=== PATIENT | male | born 1935 | race Caucasian/White ===

== ENCOUNTER 2016-03-31 09:47 | Day surgery (SDC) | payer MEDICARE, BC ==
[~2016-03-31] VITALS: Ht 165.1 cm; Wt 66.4 kg
[2016-03-31 10:26] VITALS: BP 156/100; PULSE 122; RESP 18; TEMP 97.7; O2SAT 98
[2016-03-31] MEDS ORDERED: LOSA50TA PO (10:33)
[2016-03-31] MEDS ORDERED: ALPH200C2 PO (10:33)
[2016-03-31] MEDS ORDERED: ROSU5 PO (10:33)
[2016-03-31] MEDS ORDERED: WARF-18 PO (10:33)
[2016-03-31] MEDS ORDERED: ASPI-110 PO (10:33)
[2016-03-31] MEDS ORDERED: LACTCAP8 PO (10:33)
[2016-03-31] MEDS ORDERED: CENTTAB PO (10:33)
[2016-03-31] MEDS ORDERED: HYDR12.56 PO (10:33)
[2016-03-31] MEDS ORDERED: OMEGCAP PO (10:33)
[2016-03-31 10:37] LABS: AUTOMATED NEUTROPHIL # 3.4 TH/MM3 (1.8-7.7); BASOPHIL % 0.5 % (0.0-2.0); EOSINOPHIL # 0.1 TH/MM3 (0-0.4); HEMATOCRIT 44.3 % (39.0-51.0); HEMO FLAGS DIFF FINAL; LYMPH % 16.4 % (9.0-44.0); LYMPHOCYTE # 0.8 TH/MM3 (1.0-4.8); MEAN CELL VOLUME 79.9 FL (80.0-100.0); MEAN CORPUSCULAR HEMOGLOBIN 26.6 PG (27.0-34.0); MEAN CORPUSCULAR HGB CONC 33.3 % (32.0-36.0); MONO % 11.2 % (0.0-8.0); NEUT % 69.9 % (16.0-70.0); PLATELET COUNT 172 TH/MM3 (150-450); RED BLOOD COUNT 5.54 MIL/MM3 (4.50-5.90); WHITE BLOOD COUNT 4.8 TH/MM3 (4.0-11.0)
[2016-03-31 10:44] LABS: APTT (PATIENT) 33.6 SEC (24.3-30.1); INTERNATIONAL NORMALIZED RATIO 2.1 RATIO; PROTHROMBIN TIME - PATIENT 24.3 SEC (9.8-11.6)
[2016-03-31] MEDS ORDERED: NO Heparin, Lovenox, Coumadin at least 12 hours prior to procedure. XX PRN (10:45)
[2016-03-31] MEDS ORDERED: METOPROLOL TARTRATE 25 MG TAB PO PRN (10:45)
[2016-03-31] MEDS ORDERED: CHLORHEXIDINE GLUCONATE 2 % 1 PACK (2 CLOTHS) TOP SCH (10:45)
[2016-03-31] MEDS ORDERED: NS 1000 ML IV SCH (10:45)
[2016-03-31] MEDS ORDERED: MUPIROCIN 2% OINT 1 APPLIC/GM SYR NASAL SCH (10:45)
[2016-03-31] MEDS ORDERED: INSULIN HUMAN REGULAR 1,000 UNITS/10 ML VIAL SQ PRN (10:45)
[2016-03-31] MEDS ORDERED: VANCOMYCIN 1000 MG/NS 250 ML IV SCH ×2 (10:45)
[2016-03-31] MEDS ORDERED: Hold AM Insulin & AM Hypoglycemic medications in diabetic patients XX PRN (10:45)
[2016-03-31] MEDS ORDERED: ceFAZolin 2 GM PREMIX 50 ML IV SCH (10:45)
[2016-03-31] MEDS ORDERED: LACTATED RINGER'S 1000 ML IV SCH (10:45)
[2016-03-31] MEDS ORDERED: SODIUM CHLORID 0.9% 500 ML IV SCH (10:45)
[2016-03-31] MEDS ORDERED: POVIDONE IODINE 5% (ANTISEPSIS KIT) 4 APPLICATIONS EACH NARE SCH (10:45)
[2016-03-31 10:55] LABS: BICARBONATE 30.3 MEQ/L (21.0-32.0); POTASSIUM 4.2 MEQ/L (3.5-5.1)
[2016-03-31] MEDS ORDERED: LIDOCAINE HCL 2% 50 ML VIAL ONE (12:26)
[2016-03-31] MEDS ORDERED: VANCOMYCIN 500 MG VIAL ONE (12:26)
--- NOTE | 2016-03-31 12:59 | EKG ---
Date Performed: 03/31/2016 Time Performed: 10:34:18 PTAGE: 80 years EKG: BASELINE ARTIFACT PRESENT. Probable Atrial fibrillation Possible anterior infarct - age und etermined Inferior T wave changes are nonspecific Low QRS voltages in limb leads Abnormal ECG COMPARE D TO PRIOR ELECTROCARDIOGRAM, Present electrocardiogram has marked artifact but it appears that atria l fibrillation has replaced Sinus rhythm . PREVIOUS TRACING : 03/31/2016 10.33 DOCTOR: Caleb Hodges Interpretating Date/Time 03/31/2016 12:57:31
[2016-03-31] MEDS ORDERED: SODIUM CHLORIDE 0.9% FLUSH 5 ML FLUSH IVF SCH ×2 (13:00)
[2016-03-31] MEDS ORDERED: SODIUM CHLORIDE 0.9% FLUSH 5 ML FLUSH IVF PRN ×2 (13:00)
[2016-03-31] MEDS ORDERED: PROPOFOL 200 MG/20 ML AMP IV ONE (13:30)
[2016-03-31] MEDS ORDERED: DO NOT ADM ANY ANTICOAGULANT DRUGS XX PRN (15:00)
--- NOTE | 2016-03-31 15:15 | RADRPT ---
EXAM DATE/TIME: 03/31/2016 14:43 [facility] COMPARISON: No previous studies available for comparison. INDICATIONS : Post pacemaker insertion MEDICAL HISTORY : None. SURGICAL HISTORY : Pacemaker. ENCOUNTER: Initial ACUITY: 1 day PAIN SCORE: 2/10 LOCATION: Bilateral chest FINDINGS: Portable AP views of the chest demonstrate a normal-sized cardiac silhouette. There is a single lead left chest wall cardiac pacing device present with single lead tip overlying the right heart. The nya gs are underinflated with atelectasis at the bases. No pneumothorax or pleural effusion is visualized . Bones and soft tissues demonstrate no acute finding. CONCLUSION: 1. Single lead left chest wall pacing device in appropriate position. No pneumothorax is seen. 2. Underinflation with atelectasis at the lung bases. Ahsan Starr MD on March 31, 2016 at 15:13 Board Certified Radiologist. This report was verified electronically.
--- NOTE | 2016-04-05 06:32 | MP ---
cc: CARLOS LEACH M.D. DATE OF SURGERY: 03/31/2016 DATE OF : 1935 PROCEDURE Permanent single chamber pacemaker. PREOPERATIVE DIAGNOSIS Sinus node dysfunction 5-second pauses, atrial fibrillation, tachy-moiz phenomenon. SURGEON Carlos Leach MD. ANESTHESIA: Conscious sedation, Anesthesia Department ESTIMATED BLOOD LOSS None. COMPLICATIONS None. APPROACH: Upper left chest. PROCEDURAL STATEMENTS: The patient is brought to the operating suite where the upper left chest area is prepped and draped in the usual sterile fashion. The skin was anesthetize with 1% Xylocaine and a pacemaker pocket fashioned in the upper left chest area with blunt and sharp dissection, bleeding controlled with electrocautery. Using a single tearaway sheath, and active fixation, [employer]. Christophe Tendril SDX 58 cm long pacemaker lead is positioned in the right ventricle apex, thresholds measured and found to be acceptable. The leads were connected to an Assurity 1240 pacemaker, single chamber, [employer]. Christophe. Deep tissues checked for dryness, closed with 3-0 Vicryl. The skin is closed with 4-0 Monocryl in a running subcuticular fashion. A pressure dressing is applied. The patient returned to his room in stable condition. Carlos Leach MD [facility] /1:27 PM /6:10 AM
== END 2016-03-31 16:34 | disposition home or self-care (01) ==
LOC: HDIC 09:47 → HDOC 09:47
PROVIDERS: ATTEND Internal Medicine Cardiovascular Disease
DX: I49.5 Sick sinus syndrome (principal); I48.2 Chronic atrial fibrillation; I47.2 Ventricular tachycardia; I49.9 Cardiac arrhythmia, unspecified; I10 Essential (primary) hypertension; I65.23 Occlusion and stenosis of bilateral carotid arteries
CPT/HCPCS: 33207; 71010; 80048; 85025; 85610; 85730; 93005; C1786; C1898; J3370

== ENCOUNTER 2017-01-01 07:24 | Inpatient (IN) | payer MEDICARE, BC ==
[2017-01-01] VITALS (10 sets, daily range): BP systolic 115–191; BP diastolic 63–86; PULSE 76–86; RESP 12–25; TEMP 97.8–98.9; O2SAT 94–97
[~2017-01-01] VITALS: Ht 165.1 cm; Wt 69.5 kg
[~2017-01-01 07:24] MED LIST: ALPH200C2 PO; ASPI-110 PO; CENTTAB PO; HYDR12.56 PO; LACTCAP8 PO; LOSA50TA PO; OMEGCAP PO; ROSU5 PO; WARF-18 PO
[2017-01-01] MEDS ORDERED: SODIUM CHLORIDE 0.9% FLUSH 10 ML FLUSH IVF PRN (07:45)
--- NOTE | 2017-01-01 07:51 | PD ---
HPI Chief Complaint: Fall Time Seen by Provider: 07:34 Travel History International Travel<30 days: No Contact w/Intl Traveler<30days: No Traveled to known affect area: No History of Present Illness HPI 81-year-old male presents after he tripped and fell on construction area and landed on his face. He is having pain to his lower face. He states that he is on Coumadin. He states that he had his INR checked yesterday and it was 2.9. Fall is from standing. He denies any other concurrent complaints. Quality pain is sharp. Severity is moderate. PFSH Past Medical History Atrial Fibrillation: Yes Cancer: Yes (prostate) Cardiovascular Problems: Yes (cad, afib, hyperlipidemia) High Cholesterol: Yes Diminished Hearing: Yes Hypertension: Yes Tetanus Vaccination: Unknown Past Surgical History Appendectomy: Yes Cardiac Surgery: Yes (pacer, carotid artery ) Pacemaker: Yes Other Surgery: Yes (left carotid endarterectomy) Social History Alcohol Use: No Tobacco Use: No Substance Use: No Allergies-Medications (Allergen,Severity, Reaction): Coded Allergies: No Known Allergies (Unverified , 01/01/17) Reported Meds & Prescriptions Reported Meds & Active Scripts Active Reported Hydrochlorothiazide 12.5 Mg Tab 12.5 Mg PO DAILY Losartan (Losartan Potassium) 50 Mg Tab 50 Mg PO DAILY Alpha Lipoic Acid 200 Mg Cap 200 Mg PO DAILY Crestor (Rosuvastatin Calcium) 5 Mg Tab 5 Mg PO DAILY Probiotic (Lactobacillus Acidophilus) 1 Cap Cap 1 Cap PO DAILY Aspirin 81 (Aspirin) 81 Mg Tabdr 81 Mg PO DAILY [place]-3 Fish Oil/Vitamin (Fish Oil-Cholecalciferol) 1,000-1,000 Mg Cap 3 Cap PO DAILY Warfarin 2.5 Mg Tab 2.5 Mg PO DAILY Review of Systems Except as stated in HPI: all other systems reviewed are Neg Physical Exam Narrative GENERAL: Well-nourished, well-developed patient. Well-appearing SKIN: Warm and dry. HEAD: Normocephalic and abrasion noted to lower face EYES: No injection or drainage. ENT: No nasal drainage noted. There is a small less than half centimeter simple laceration noted to inner upper lip with small swelling NECK: Supple, trachea midline. CARDIOVASCULAR: Regular rate and rhythm RESPIRATORY: Breath sounds equal bilaterally at apices. No accessory muscle use. GASTROINTESTINAL: Abdomen soft, non-tender, nondistended. EXTREMITIES: No joint pain with range of motion NEUROLOGICAL: Awake and alert. Motor and sensory grossly within normal limits. Normal speech. Data Data Last Documented VS Vital Signs Date Time Temp Pulse Resp B/P (MAP) Pulse Ox O2 Delivery O2 Flow Rate FiO2 01/01/17 07:42 (121) 01/01/17 07:38 18 17 97 01/01/17 07:26 98.0 Orders Orders Basic Metabolic Panel (Bmp) (01/01/17 07:40) Complete Blood Count With Diff (01/01/17 07:40) Prothrombin Time / Inr (Pt) (01/01/17 07:40) Act Partial Throm Time (Ptt) (01/01/17 07:40) Type And Screen (01/01/17 07:40) Ct Brain W/O Iv Contrast(Rout) (01/01/17 07:40) Ct Facial Bones W/O Iv Cont (01/01/17 07:40) Iv Access Insert/Monitor (01/01/17 07:40) Ecg Monitoring (01/01/17 07:40) Oximetry (01/01/17 07:40) Sodium Chloride 0.9% Flush (Ns Flush) (01/01/17 07:45) ^ Lab Follow Up (01/01/17 08:18) Phytonadione Inj (Vitamin K Inj) (01/01/17 09:00) Prothrombin Complex Conc Inj (Kcentra In (01/01/17 09:00) Admit To Inpatient (01/01/17 08:20) Elevate Head Of Bed (01/01/17 08:20) Intake + Output MINOO.Q8H (01/01/17 08:20) Diet Clear Liquid (01/01/17 Breakfast) Complete Blood Count With Diff (01/02/17 06:00) Basic Metabolic Panel (Bmp) (01/02/17 06:00) Prothrombin Time / Inr (Pt) (01/02/17 06:00) Act Partial Throm Time (Ptt) (01/02/17 06:00) Resp Incentive Spirometry (01/01/17 08:20) Consult Pt Eval & Treat (01/01/17 08:20) Consult Hospitalist (01/01/17 08:20) Ct Brain W/O Iv Contrast(Rout) (01/02/17 06:00) Activity Oob With Assistance PRN (01/01/17 08:20) Scd Bilateral/Knee High MINOO.QSHIFT (01/01/17 08:20) Neuro Checks RT.Q1H (01/01/17 08:20) Vital Signs (Adult) MINOO.Q1H (01/01/17 08:20) Inpatient Certification (01/01/17 ) D5-Ns + Kcl 20 Meq Inj (D5-Ns + Kcl 20 M (01/01/17 09:00) Pantoprazole (Protonix) (01/01/17 09:00) Ondansetron Inj (Zofran Inj) (01/01/17 08:30) Docusate Sodium (Colace) (01/01/17 09:00) Admit Order (Ed Use Only) (01/01/17 08:32) Sodium Chloride 0.9% Flush (Ns Flush) (01/01/17 08:30) Sodium Chloride 0.9% Flush (Ns Flush) (01/01/17 09:00) Labs Laboratory Tests Test 01/01/17 08:00 White Blood Count 4.9 TH/MM3 Red Blood Count 5.21 MIL/MM3 Hemoglobin 14.4 GM/DL Hematocrit 43.1 % Mean Corpuscular Volume 82.6 FL Mean Corpuscular Hemoglobin 27.6 PG Mean Corpuscular Hemoglobin Concent 33.5 % Red Cell Distribution Width 15.2 % Platelet Count 136 TH/MM3 Mean Platelet Volume 7.4 FL Neutrophils (%) (Auto) 66.8 % Lymphocytes (%) (Auto) 15.7 % Monocytes (%) (Auto) 13.9 % Eosinophils (%) (Auto) 3.3 % Basophils (%) (Auto) 0.3 % Neutrophils # (Auto) 3.3 TH/MM3 Lymphocytes # (Auto) 0.8 TH/MM3 Monocytes # (Auto) 0.7 TH/MM3 Eosinophils # (Auto) 0.2 TH/MM3 Basophils # (Auto) 0.0 TH/MM3 CBC Comment DIFF FINAL Differential Comment Prothrombin Time 30.3 SEC Prothromb Time International Ratio 2.6 RATIO Activated Partial Thromboplast Time 32.4 SEC Blood Urea Nitrogen 16 MG/DL Creatinine 0.98 MG/DL Random Glucose 103 MG/DL Calcium Level 9.4 MG/DL Sodium Level 138 MEQ/L Potassium Level 4.2 MEQ/L Chloride Level 106 MEQ/L Carbon Dioxide Level 25.7 MEQ/L Anion Gap 6 MEQ/L Estimat Glomerular Filtration Rate 73 ML/MIN MDM Medical Decision Making Medical Screen Exam Complete: Yes Emergency Medical Condition: Yes Medical Record Reviewed: Yes (past history confirmed) Interpretation(s) Last [address] 01/01/17739 Signed Impressions: Service Date/Time: Sunday, January 01, 2017 07:43 - CONCLUSION: 1. Nasal septal fracture. Soft tissue swelling involving the bridge of the nose. Emmanuel Marrero Jr., MD Head CT 01/01/17739 Signed Impressions: Service Date/Time: Sunday, January 01, 2017 07:41 - CONCLUSION: 1. Acute 5 mm subdural hematoma along the left frontal, temporal and parietal lobes as well as acute 3 mm right frontal subdural hematoma and probable acute left tentorial subdural hematoma. 2. No midline shift. 3. Underlying diffuse cerebral atrophy. 4. No acute infarct. Arley Sterling MD In regards to patient's nasal septal fracture this can be followed up outpatient CBC & BMP Diagram 01/01/17 08:00 Calcium Level 9.4 Differential Diagnosis Intracranial bleed, fracture, strain Narrative Course I personally called CT to expedite imaging given age and on Coumadin with fall from standing. [address] with nurse and discussed with charge nurse, labs will be followed [address], nurse drawing labs now 820 K Centra and vitamin K ordered after discussion with neurosurgeon, lengthy discussion with patient and he was updated. Patient has had no change in his neurological status since initially seen. He agrees to admission to the ICU and close monitoring. He states Dr. Goodwin is his color finisher and he takes the Coumadin for atrial fibrillation. Critical Care Narrative Aggregate critical care time was 40 minutes. Time to perform other separately billable procedures was not included in the critical care time. My time did not include minutes spent treating any other patients simultaneously or on activities that did not directly contribute to the patient's treatment. The services I provided to this patient were to treat and/or prevent clinically significant deterioration that could result in: Herniation, , progression of bleeding I provided critical care services requiring my management, as noted below: Chart data review, documentation time, medication orders and management, vital sign assessments/reviewing monitor data, ordering and reviewing lab tests, ordering and interpreting/reviewing x-rays and diagnostic studies, care of the patient and discussion of the patient with the admitting physicians. Physician Communication Physician Communication dr palacio states to give kcentra and vitamin k and will place orders for ICU Diagnosis Primary Impression: Subdural hematoma Additional Impressions: Anticoagulated on Coumadin Fall Qualified Codes: W19.XXXA - Unspecified fall, initial encounter Admitting Information Admitting Physician Requests: Admit Asuncion Wu MD Jan 01, 2017 07:51
--- NOTE | 2017-01-01 08:12 | RADRPT ---
EXAM DATE/TIME: 01/01/2017 07:41 [facility] COMPARISON: No previous studies available for comparison. INDICATIONS : Trauma, fall. Head pain. RADIATION DOSE: 45.79 CTDIvol (mGy) MEDICAL HISTORY : Cardiovascular disease. Hypertension. Carcinoma, prostate. SURGICAL HISTORY : Pacemaker. Appendectomy. ENCOUNTER: Initial ACUITY: 1 day PAIN SCALE: 4/10 LOCATION: cranial TECHNIQUE: Multiple contiguous axial images were obtained of the head. Using automated exposure control and adj ustment of the mA and/or kV according to patient size, radiation dose was kept as low as reasonably a chievable to obtain optimal diagnostic quality images. DICOM format image data is available electro nically for review and comparison. FINDINGS: There is evidence of an acute 5 mm subdural hematoma along the left frontal, temporal, and parietal l obes. A tiny 3 mm right frontal acute subdural hematoma is also noted. No midline shift is noted. Pro bable small acute left tentorial subdural hematoma is also noted. Underlying diffuse cerebral atrophy is noted. No acute infarct is noted. CONCLUSION: 1. Acute 5 mm subdural hematoma along the left frontal, temporal and parietal lobes as well as acute 3 mm right frontal subdural hematoma and probable acute left tentorial subdural hematoma. 2. No midline shift. 3. Underlying diffuse cerebral atrophy. 4. No acute infarct. Arley Sterling MD on January 01, 2017 at 8:03 Board Certified Radiologist. This report was verified electronically.
--- NOTE | 2017-01-01 08:16 | RADRPT ---
EXAM DATE/TIME: 01/01/2017 07:43 [facility] COMPARISON: No previous studies available for comparison. INDICATIONS : Trauma, fall. Nasal pain. RADIATION DOSE: 36.44 CTDIvol (mGy) MEDICAL HISTORY : Cardiovascular disease. Hypertension. Carcinoma, prostate. SURGICAL HISTORY : Appendectomy. Pacemaker. ENCOUNTER: Initial ACUITY: 1 day PAIN SCORE: 4/10 LOCATION: facial TECHNIQUE: Volumetric scanning of the facial bones was performed. Using automated exposure control and adjustme nt of the mA and/or kV according to patient size, radiation dose was kept as low as reasonably achiev able to obtain optimal diagnostic quality images. DICOM format image data is available electronicall y for review and comparison. FINDINGS: There is an acute fracture involving the nasal septum towards its more cephalad extent. No other frac tures observed. No nasion fracture appreciated. Postsurgical changes involving the middle turbinate a nd lateral wall of the right nasal cavity. Mild mucosal thickening involving the maxillary sinuses bi laterally. The ostomy O. complex on the left is patent. Postsurgical changes on the right are patent. Lamina papyracea are intact. Remaining paranasal sinuses are clear. Orbital structures are unremarka ble. Small area of soft tissue swelling is seen just medial to the left orbit essentially at the brid ge of the nose. Temporomandibular joints are unremarkable. Surgical clips seen associated with the ca rotid artery on the left. CONCLUSION: 1. Nasal septal fracture. Soft tissue swelling involving the bridge of the nose. Emmanuel Marrero Jr., MD on January 01, 2017 at 8:10 Board Certified Radiologist. This report was verified electronically.
[2017-01-01 08:29] LABS: AUTOMATED NEUTROPHIL # 3.3 TH/MM3 (1.8-7.7); BASOPHIL % 0.3 % (0.0-2.0); EOSINOPHIL # 0.2 TH/MM3 (0-0.4); EOSINOPHIL % 3.3 % (0.0-4.0); HEMATOCRIT 43.1 % (39.0-51.0); HEMO FLAGS DIFF FINAL; LYMPH % 15.7 % (9.0-44.0); LYMPHOCYTE # 0.8 TH/MM3 (1.0-4.8); MEAN CELL VOLUME 82.6 FL (80.0-100.0); MEAN CORPUSCULAR HEMOGLOBIN 27.6 PG (27.0-34.0); MEAN CORPUSCULAR HGB CONC 33.5 % (32.0-36.0); MONO % 13.9 % (0.0-8.0); NEUT % 66.8 % (16.0-70.0); PLATELET COUNT 136 TH/MM3 (150-450); RED BLOOD COUNT 5.21 MIL/MM3 (4.50-5.90); RED CELL DISTRIBUTION WIDTH 15.2 % (11.6-17.2); WHITE BLOOD COUNT 4.9 TH/MM3 (4.0-11.0)
[2017-01-01] MEDS ORDERED: SODIUM CHLORIDE 0.9% FLUSH 10 ML FLUSH IV FLUSH PRN (08:30)
[2017-01-01] MEDS ORDERED: ONDANSETRON HCL 4 MG/2 ML VIAL IV PUSH PRN (08:30)
[2017-01-01 08:40] LABS: APTT (PATIENT) 32.4 SEC (24.3-30.1); INTERNATIONAL NORMALIZED RATIO 2.6 RATIO; PROTHROMBIN TIME - PATIENT 30.3 SEC (9.8-11.6)
--- NOTE | 2017-01-01 08:43 | HHI.HP ---
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 He fell forwards onto his face, complaining of facial pain. No complaint of headache, nausea, vomiting. No seizure reported. No pain weakness numbness in the extremities. He is on Coumadin for atrial fibrillation with reported INR of 2.4 yesterday. Review of Systems Constitutional: DENIES: Weight loss, Dizziness Eyes: DENIES: Blurred vision, Diplopia, Eye pain Ears, nose, mouth, throat: DENIES: Hearing loss, Vertigo Respiratory: DENIES: Cough, Shortness of breath Cardiovascular: DENIES: Chest pain, Palpitations, Syncope Gastrointestinal: DENIES: Abdominal pain, Nausea, Vomiting Genitourinary: DENIES: Urinary incontinence Musculoskeletal: COMPLAINS OF: Joint pain (left elbow-prior to fall), DENIES: Back pain, Neck pain Hematologic/lymphatic: COMPLAINS OF: Bruising Neurologic: COMPLAINS OF: Headache (mild), DENIES: Abnormal gait Psychiatric: DENIES: Anxiety, Confusion Past Family Social History Allergies: Coded Allergies: No Known Allergies (Unverified , 01/01/17) Past Medical History Atrial fibrillation Hypertension Hyperlipidemia Coronary artery disease Prostate cancer Past Surgical History Appendectomy Pacemaker placement Left carotid endarterectomy Reported Medications Reported Meds & Active Scripts Active Reported Hydrochlorothiazide 12.5 Mg Tab 12.5 Mg PO DAILY Losartan (Losartan Potassium) 50 Mg Tab 50 Mg PO DAILY Alpha Lipoic Acid 200 Mg Cap 200 Mg PO DAILY Crestor (Rosuvastatin Calcium) 5 Mg Tab 5 Mg PO DAILY Probiotic (Lactobacillus Acidophilus) 1 Cap Cap 1 Cap PO DAILY Aspirin 81 (Aspirin) 81 Mg Tabdr 81 Mg PO DAILY [place]-3 Fish Oil/Vitamin (Fish Oil-Cholecalciferol) 1,000-1,000 Mg Cap 3 Cap PO DAILY Warfarin 2.5 Mg Tab 2.5 Mg PO DAILY Family History No history of significant cardiac disease, neurologic disorders, cancer in the family. He had numerous brothers and sisters all of whom live to a late age. Social History No cigarette or alcohol use Physical Exam Vital Signs Vital Signs Date Time Temp Pulse Resp B/P (MAP) Pulse Ox O2 Delivery O2 Flow Rate FiO2 01/01/17 07:42 (121) 01/01/17 07:38 18 17 97 01/01/17 07:33 86 14 181/84 (116) 96 01/01/17 07:26 98.0 77 13 191/86 (121) 97 Physical Exam GENERAL: This is a well-nourished, well-developed patient, no apparent distress. SKIN: Mild abrasions left upper extremity HEAD: Atraumatic. Normocephalic. No temporal or scalp tenderness. EYES: Sclerae are clear and nonicteric ENT: No CSF otorrhea or rhinorrhea. Moderate contusions, erythema, edema over the nasal and left greater than right periorbital and facial region. No significant periorbital ecchymosis. Mild laceration inner left lower lip NECK: Trachea midline. No cervical spine tenderness. CARDIOVASCULAR: Irregular rhythm without murmurs, gallops, or rubs. RESPIRATORY: Clear to auscultation. Breath sounds equal bilaterally. No wheezes , rales, or rhonchi. GASTROINTESTINAL: Abdomen soft, non-tender, nondistended. No hepato-splenomegaly , or palpable masses. No guarding. MUSCULOSKELETAL: Extremities without cyanosis, or edema. No joint tenderness, or edema noted. No calf tenderness. Dorsalis pedis pulses 2+ bilateral NEUROLOGICAL: Awake and alert Oriented X 3 Speech is clear Conversant and appropriate Follow simple commands well Answers questions appropriately Reasonable judgment and insight Recent and remote memory are intact No evidence of anxiety or depression Pupils are equal and reactive to accommodation. Extra-ocular movements, visual dickens to confrontation, facial sensorimotor, tongue, palate, sternocleidomastoid testing, hearing to finger rub testing, and bilateral shoulder shrug are all intact. Sensation is intact to light touch in all extremities Strength normal major flexion and extension groups all extremities Meghan's absent bilaterally No ankle clonus Plantar responses absent bilateral Fine motor movements intact upper extremities Laboratory Laboratory Tests Test 01/01/17 08:00 White Blood Count 4.9 Red Blood Count 5.21 Hemoglobin 14.4 Hematocrit 43.1 Mean Corpuscular Volume 82.6 Mean Corpuscular Hemoglobin 27.6 Mean Corpuscular Hemoglobin Concent 33.5 Red Cell Distribution Width 15.2 Platelet Count 136 Mean Platelet Volume 7.4 Neutrophils (%) (Auto) 66.8 Lymphocytes (%) (Auto) 15.7 Monocytes (%) (Auto) 13.9 Eosinophils (%) (Auto) 3.3 Basophils (%) (Auto) 0.3 Neutrophils # (Auto) 3.3 Lymphocytes # (Auto) 0.8 Monocytes # (Auto) 0.7 Eosinophils # (Auto) 0.2 Basophils # (Auto) 0.0 CBC Comment DIFF FINAL Differential Comment Result Diagram: 01/01/17 0800 Imaging 01/01/17 CT scan of the head images reviewed by the undersigned. This study reveals an approximately 5 mm relatively localized acute subdural hematoma over the left parietal greater than frontotemporal regions without significant mass effect. Also a smaller approximately 3 mm right frontal subdural hematoma and then left tentorial subdural hematoma. No skull fracture noted. No pneumocephalus or hydrocephalus. Maxillofacial CT 01/01/1740 Signed Impressions: Service Date/Time: Sunday, January 01, 2017 07:43 - CONCLUSION: 1. Nasal septal fracture. Soft tissue swelling involving the bridge of the nose. Emmanuel Marrero Jr., MD Head CT 01/01/1740 Signed Impressions: Service Date/Time: Sunday, January 01, 2017 07:41 - CONCLUSION: 1. Acute 5 mm subdural hematoma along the left frontal, temporal and parietal lobes as well as acute 3 mm right frontal subdural hematoma and probable acute left tentorial subdural hematoma. 2. No midline shift. 3. Underlying diffuse cerebral atrophy. 4. No acute infarct. Arley Sterling MD Caprini VTE Risk Assessment Caprini VTE Risk Assessment: Mod/High Risk (score >= 2) VTE Pharm Contraindication: Hemorrhage (acute subdural hematoma) Caprini Risk Assessment Model Point Value = 1 Point Value = 2 Point Value = 3 Point Value = 5 Age 41-60 Minor surgery BMI > 25 kg/m2 Swollen legs Varicose veins or History of unexplained or recurrent spontaneous Oral contraceptives or hormone replacement Sepsis (< 1 month) Serious lung disease, including pneumonia (< 1 month) Abnormal pulmonary function Acute myocardial infarction Congestive heart failure (< 1 month) History of inflammatory bowel disease Medical patient at bed rest Age 61-74 Arthroscopic surgery Major open surgery (> 45 min) Laparoscopic surgery (> 45 min) Malignancy Confined to bed (> 72 hours) Immobilizing plaster cast Central venous access Age >= 75 History of VTE Family history of VTE Factor V Leiden Prothrombin [id number] Lupus anticoagulant Anticardiolipin antibodies Elevated serum homocysteine Heparin-induced thrombocytopenia Other congenital or acquired thrombophilia Stroke (< 1 month) Elective arthroplasty Hip, pelvis, or leg fracture Acute spinal cord injury (< 1 month) Prophylaxis Regimen Total Risk Factor Score Risk Level Prophylaxis Regimen 0-1 Low Early ambulation 2 Moderate Order ONE of the following: *Sequential Compression Device (SCD) *Heparin 5000 units SQ BID 3-4 Higher Order ONE of the following medications: *Heparin 5000 units SQ TID *Enoxaparin/Lovenox 40 mg SQ daily (WT < 150 kg, CrCl > 30 mL/min) *Enoxaparin/Lovenox 30 mg SQ daily (WT < 150 kg, CrCl > 10-29 mL/min) *Enoxaparin/Lovenox 30 mg SQ BID (WT < 150 kg, CrCl > 30 mL/min) AND/OR *Sequential Compression Device (SCD) 5 or more Highest Order ONE of the following medications: *Heparin 5000 units SQ TID (Preferred with Epidurals) *Enoxaparin/Lovenox 40 mg SQ daily (WT < 150 kg, CrCl > 30 mL/min) *Enoxaparin/Lovenox 30 mg SQ daily (WT < 150 kg, CrCl > 10-29 mL/min) *Enoxaparin/Lovenox 30 mg SQ BID (WT < 150 kg, CrCl > 30 mL/min) AND *Sequential Compression Device (SCD) Assessment and Plan Assessment and Plan Impression: 1. Acute left greater than right subdural hematoma without significant mass effect 2. Atrial fibrillation on Coumadin 3. Hypertension 4. Coronary artery disease 5. Dyslipidemia 6. History of prostate cancer 7. Facial contusions with nasal septal fracture Plan: 1. K Centra reversal of Coumadin. Discussed with emergency room physician. 2. Hold Coumadin 3. Admit surgical intensive care unit for close neurologic checks and vital signs 4. Follow-up CT scan had 01/02/17 and as needed for changes in neurologic status. 5. Hypertension. Maintain current medications with as needed medications for adequate control 6. Facial contusions. Conservative treatment. 7. Nasal septal fracture. Conservative treatment. 8. Dyslipidemia. Hold statin medications for now due to subdural hematomas 9. Medicine consultation to assist with medical management hypertension, coronary artery disease 10. Also prophylaxis 11. Non-chemical DVT prophylaxis due to subdural hematoma Lex Graff MD Jan 01, 2017 08:43
[2017-01-01 08:47] LABS: BICARBONATE 25.7 MEQ/L (21.0-32.0); POTASSIUM 4.2 MEQ/L (3.5-5.1)
[2017-01-01] MEDS ORDERED: PROTHROMBIN COMPLEX CONC INJ 1,500 UNITS in SYRINGE/BAG 1 EA IV ONE (09:00)
[2017-01-01] MEDS ORDERED: PHYTONADIONE INJ 10 MG in SODIUM CHLORIDE 0.9% INJ 50 ML IV ONE (09:00)
[2017-01-01] MEDS ORDERED: TETANUS/DIPHTHERIA TOXOID ADULT 0.5 ML VIAL IM ONE (09:15)
[2017-01-01] MEDS: DOCUSATE SODIUM 100 MG CAP PO SCH ×2 (09:16→21:00)
[2017-01-01] MEDS: PANTOPRAZOLE SOD 40 MG DELAYED RELEASE TAB PO SCH (09:16)
[2017-01-01] MEDS: D5-NS + KCL 20 MEQ INJ 1,000 ML IV SCH ×2 (09:16→19:08)
[2017-01-01] MEDS: SODIUM CHLORIDE 0.9% FLUSH 10 ML FLUSH IV FLUSH SCH ×2 (09:16→21:09)
[2017-01-01 12:56] LABS: INTERNATIONAL NORMALIZED RATIO 1.3 RATIO
[2017-01-01 12:59] LABS: PROTHROMBIN TIME - PATIENT 14.1 SEC (9.8-11.6)
[2017-01-01 13:00] LABS: APTT (PATIENT) 25.4 SEC (24.3-30.1)
--- NOTE | 2017-01-01 15:36 | PD.CONS ---
HPI Service [facility] Hospitalists Consult Requested By Neurosurgery service Reason for Consult Medical management Primary Care Physician Leif Mayen MD, PhD Diagnoses: History of Present Illness Written by Luisa Bunn, acting as scribe for Dr. Soto on 01/01/17 at 15:26. This is a 81-year-old male with a past medical history significant for atrial fibrillation on Coumadin, status post pacemaker implantation, hypertension, PAD , CAP and dyslipidemia who presented to [facility] ED after sustaining a fall earlier this morning when he was out walking in the construction area. Patient states that his foot got caught in some construction netting and as he turned he fell forward landing on his face. He denies any loss of consciousness. In the ED, CT of the head was obtained which showed acute subdural hematoma over the left parietal greater than frontotemporal regions without significant mass effect. He was also noted to have smaller approximately 3 mm right frontal subdural hematoma and a left tentorial subdural hematoma. No skull fracture noted. He was found to be therapeutic with his INR 2.6 and was given vitamin K. He has been admitted to neurosurgery service and hospitalist service has been consulted for medical management. He reports his prosthetic assistant is Dr. Goodwin. At present, patient is complaining of some mild headache. He denies any vision changes. Denies any other complaints at this time. He denies any fever or chills. Denies any chest pain or shortness of breath. Denies any nausea, vomiting or abdominal pain. Denies any numbness or tingling. Denies any urinary difficulties, diarrhea or constipation. Review of Systems Except as stated in HPI: all other systems reviewed are Neg Past Family Social History Allergies: Coded Allergies: No Known Allergies (Unverified , 01/01/17) Past Medical History Atrial fibrillation on Coumadin Hypertension Dyslipidemia PAD CAP Past Surgical History Left CEA 02/20 Pacemaker implantation Appendectomy Hernia repair Reported Medications Hydrochlorothiazide 12.5 Mg Tab 12.5 Mg PO DAILY Losartan (Losartan Potassium) 50 Mg Tab 50 Mg PO DAILY Alpha Lipoic Acid 200 Mg Cap 200 Mg PO DAILY Crestor (Rosuvastatin Calcium) 5 Mg Tab 5 Mg PO DAILY Probiotic (Lactobacillus Acidophilus) 1 Cap Cap 1 Cap PO DAILY Aspirin 81 (Aspirin) 81 Mg Tabdr 81 Mg PO DAILY [place]-3 Fish Oil/Vitamin (Fish Oil-Cholecalciferol) 1,000-1,000 Mg Cap 3 Cap PO DAILY Warfarin 2.5 Mg Tab 2.5 Mg PO DAILY Active Ordered Medications Current Medications Medications (Trade) Dose Ordered Sig/Alexa Route Start Time Stop Time Status Last Admin (NS Flush) 2 ml UNSCH PRN IV FLUSH 01/01/17 08:30 (NS Flush) 2 ml BID IV FLUSH 01/01/17 09:00 01/01/17 09:16 Potassium Chloride/Dextrose/ Sod Cl 1,000 ml @ 100 mls/hr Q10H IV 01/01/17 09:00 01/01/17 09:16 (Protonix) 40 mg DAILY PO 01/01/17 09:00 01/01/17 09:16 (Zofran Inj) 4 mg Q6H PRN IV PUSH 01/01/17 08:30 (Colace) 100 mg BID PO 01/01/17 09:00 01/01/17 09:16 Family History Dementia Patient is the last of 8 siblings all of whom in their 80s and 90s. Social History Patient has a history of tobacco use but quit over 35 years ago. He denies any alcohol consumption. He denies any illicit drug use. Physical Exam Vital Signs Vital Signs Date Time Temp Pulse Resp B/P (MAP) Pulse Ox O2 Delivery O2 Flow Rate FiO2 01/01/17 14:00 78 01/01/17 13:00 85 01/01/17 12:46 01/01/17 12:30 97.8 84 20 148/70 (96) 95 01/01/17 08:57 98.3 83 18 145/73 (97) 96 Room Air 01/01/17 07:42 (121) 01/01/17 07:38 18 17 97 01/01/17 07:33 86 14 181/84 (116) 96 01/01/17 07:26 98.0 77 13 191/86 (121) 97 Physical Exam GENERAL: This is a well-nourished, well-developed patient, in no apparent distress. Awake and alert. SKIN: Multiple contusions noted on face. Cool and dry. HEAD: Normocephalic. No temporal or scalp tenderness. Upper and lower lip swelling appreciated. EYES: Pupils equal round and reactive. Extraocular motions intact. No scleral icterus. No injection or drainage. ENT: Nose without bleeding or purulent drainage. Throat without erythema, tonsillar hypertrophy or exudate. Uvula midline. Airway patent. NECK: Trachea midline. No lymphadenopathy. Supple, nontender, no meningeal signs. CARDIOVASCULAR: Irregular without murmurs, gallops, or rubs. RESPIRATORY: Clear to auscultation. Breath sounds equal bilaterally. No wheezes , rales, or rhonchi. GASTROINTESTINAL: Abdomen soft, non-tender, nondistended. No hepato-splenomegaly , or palpable masses. No guarding. MUSCULOSKELETAL: Extremities without clubbing, cyanosis, or edema. No joint tenderness, effusion, or edema noted. No calf tenderness. NEUROLOGICAL: Awake and alert. Able to move all extremities spontaneously. Nonfocal. Normal speech. Laboratory Laboratory Tests Test 01/01/17 08:00 01/01/17 12:27 White Blood Count 4.9 Red Blood Count 5.21 Hemoglobin 14.4 Hematocrit 43.1 Mean Corpuscular Volume 82.6 Mean Corpuscular Hemoglobin 27.6 Mean Corpuscular Hemoglobin Concent 33.5 Red Cell Distribution Width 15.2 Platelet Count 136 Mean Platelet Volume 7.4 Neutrophils (%) (Auto) 66.8 Lymphocytes (%) (Auto) 15.7 Monocytes (%) (Auto) 13.9 Eosinophils (%) (Auto) 3.3 Basophils (%) (Auto) 0.3 Neutrophils # (Auto) 3.3 Lymphocytes # (Auto) 0.8 Monocytes # (Auto) 0.7 Eosinophils # (Auto) 0.2 Basophils # (Auto) 0.0 CBC Comment DIFF FINAL Differential Comment Prothrombin Time 30.3 14.1 Prothromb Time International Ratio 2.6 1.3 Activated Partial Thromboplast Time 32.4 25.4 Blood Urea Nitrogen 16 Creatinine 0.98 Random Glucose 103 Calcium Level 9.4 Sodium Level 138 Potassium Level 4.2 Chloride Level 106 Carbon Dioxide Level 25.7 Anion Gap 6 Estimat Glomerular Filtration Rate 73 Result Diagram: 01/01/1779901/01/17799 Imaging Last Impressions Maxillofacial CT 01/01/17739 Signed Impressions: Service Date/Time: Sunday, January 01, 2017 07:43 - CONCLUSION: 1. Nasal septal fracture. Soft tissue swelling involving the bridge of the nose. Emmanuel Marrero Jr., MD Head CT 01/01/17739 Signed Impressions: Service Date/Time: Sunday, January 01, 2017 07:41 - CONCLUSION: 1. Acute 5 mm subdural hematoma along the left frontal, temporal and parietal lobes as well as acute 3 mm right frontal subdural hematoma and probable acute left tentorial subdural hematoma. 2. No midline shift. 3. Underlying diffuse cerebral atrophy. 4. No acute infarct. Arley Sterling MD Assessment and Plan Assessment and Plan 81-year-old male with a past medical history significant for atrial fibrillation on Coumadin, status post pacemaker implantation, hypertension, PAD , CAP and dyslipidemia who presented to [facility] ED after sustaining a fall earlier this morning when he was out walking in the construction area. 1. Subdural hematoma: Management per neurosurgery service. CT reviewed. Continue to hold Coumadin. INR 1.3 today. Resume Coumadin per neurosurgery recommendations. Neuro checks. Continuous cardiac monitoring. PT/OT. Follow up CT scan scheduled for tomorrow am. 2. Facial contusions: Appear superficial. Monitor. 3. Nasal septal fracture: Appears stable. Will consider OMFS consultation. 4. Atrial fibrillation on Coumadin: Consult patients prosthetic assistant Dr. Goodwin. 5. Hypertension: Adequately controlled at present. Will resume patients home dose of Losartan 50mg daily and HCTZ 12.5mg daily 6. Dyslipidemia: Hold statin 7. CAP: Stable. 8. DVT prophylaxis: Chemoprophylaxis contraindicated secondary to bleed. Bilateral SCD/TOMÁS hose. Thank you very kindly for this consultation and will gladly following this pleasant gentleman along with you. This note was transcribed by preet Bunn. I, Dr. Toni Soto personally performed the history, physical exam, and medical decision making; and confirmed the accuracy of the information in the transcribed note. Authenticated by Dr. Toni Soto on 01/01/17 at 16:10. Discussed Condition With Patient, nursing staff Luisa Bunn Jan 01, 2017 15:36 Toni Soto MD Jan 01, 2017 16:11
[2017-01-01] MEDS ORDERED: ACETAMINOPHEN 325 MG TAB PO PRN (20:00)
[2017-01-01 22:51] LABS: INTERNATIONAL NORMALIZED RATIO 1.2 RATIO; PROTHROMBIN TIME - PATIENT 13.1 SEC (9.8-11.6)
[2017-01-02] VITALS (9 sets, daily range): BP systolic 106–129; BP diastolic 59–83; PULSE 67–96; RESP 17–24; TEMP 97.5–98.7; O2SAT 94–98
[2017-01-02 04:00] LABS: AUTOMATED NEUTROPHIL # 2.8 TH/MM3 (1.8-7.7); BASOPHIL % 0.3 % (0.0-2.0); EOSINOPHIL # 0.1 TH/MM3 (0-0.4); EOSINOPHIL % 2.4 % (0.0-4.0); HEMATOCRIT 37.6 % (39.0-51.0); HEMO FLAGS DIFF FINAL; LYMPH % 13.2 % (9.0-44.0); LYMPHOCYTE # 0.5 TH/MM3 (1.0-4.8); MEAN CELL VOLUME 82.4 FL (80.0-100.0); MEAN CORPUSCULAR HEMOGLOBIN 27.4 PG (27.0-34.0); MEAN CORPUSCULAR HGB CONC 33.3 % (32.0-36.0); MONO % 15.3 % (0.0-8.0); NEUT % 68.8 % (16.0-70.0); PLATELET COUNT 120 TH/MM3 (150-450); RED BLOOD COUNT 4.56 MIL/MM3 (4.50-5.90); RED CELL DISTRIBUTION WIDTH 15.4 % (11.6-17.2)
[2017-01-02 04:18] LABS: APTT (PATIENT) 26.1 SEC (24.3-30.1); INTERNATIONAL NORMALIZED RATIO 1.2 RATIO; PROTHROMBIN TIME - PATIENT 13.1 SEC (9.8-11.6)
[2017-01-02 04:28] LABS: BICARBONATE 26.8 MEQ/L (21.0-32.0); POTASSIUM 4.8 MEQ/L (3.5-5.1)
--- NOTE | 2017-01-02 04:39 | RADRPT ---
EXAM DATE/TIME: 01/02/2017 04:08 [place] COMPARISON: CT BRAIN W/O CONTRAST, January 01, 2017, 7:41. INDICATIONS : Trauma, fall. Follow up subdural hematoma. RADIATION DOSE: 38.04 CTDIvol (mGy) MEDICAL HISTORY : Hypertension. Carcinoma, prostate. SURGICAL HISTORY : None. ENCOUNTER: Subsequent ACUITY: 1 day PAIN SCALE: 0/10 LOCATION: cranial TECHNIQUE: Multiple contiguous axial images were obtained of the head. Using automated exposure control and adj ustment of the mA and/or kV according to patient size, radiation dose was kept as low as reasonably a chievable to obtain optimal diagnostic quality images. DICOM format image data is available electro nically for review and comparison. 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 On the left, an approximately 5 mm thick collection of subacute blood is again seen in the subdural space, unchanged. No midline shift. No new bleed. No ma ss or evidence of an acute ischemic event. CONCLUSION: Subacute left subdural hematoma superimposed on chronic bilateral cystic hygromas without change. No new blood. No midline shift. Ahsan Dodge MD on January 02, 2017 at 4:35 Board Certified Radiologist. This report was verified electronically.
[2017-01-02] MEDS: D5-NS + KCL 20 MEQ INJ 1,000 ML IV SCH (05:27)
--- NOTE | 2017-01-02 08:17 | PD.CONS ---
HPI Service Cardiology Consult Requested By Primary Care Physician Leif Mayen MD, PhD History of Present Illness Patient seen examined well know to me for 20yrs. Fall with subdural. AF OAC warfarin Pacemaker not dependent Past Family Social History Allergies: Coded Allergies: No Known Allergies (Unverified , 01/01/17) Reported Medications Reported Meds & Active Scripts Active Reported Hydrochlorothiazide 12.5 Mg Tab 12.5 Mg PO DAILY Losartan (Losartan Potassium) 50 Mg Tab 50 Mg PO DAILY Alpha Lipoic Acid 200 Mg Cap 200 Mg PO DAILY Crestor (Rosuvastatin Calcium) 5 Mg Tab 5 Mg PO DAILY Probiotic (Lactobacillus Acidophilus) 1 Cap Cap 1 Cap PO DAILY Aspirin 81 (Aspirin) 81 Mg Tabdr 81 Mg PO DAILY [place]-3 Fish Oil/Vitamin (Fish Oil-Cholecalciferol) 1,000-1,000 Mg Cap 3 Cap PO DAILY Warfarin 2.5 Mg Tab 2.5 Mg PO DAILY Active Ordered Medications Current Medications Medications (Trade) Dose Ordered Sig/Alexa Route Start Time Stop Time Status Last Admin (NS Flush) 2 ml UNSCH PRN IV FLUSH 01/01/17 08:30 (NS Flush) 2 ml BID IV FLUSH 01/01/17 09:00 01/01/17 21:09 Potassium Chloride/Dextrose/ Sod Cl 1,000 ml @ 100 mls/hr Q10H IV 01/01/17 09:00 01/02/17 05:27 (Protonix) 40 mg DAILY PO 01/01/17 09:00 01/01/17 09:16 (Zofran Inj) 4 mg Q6H PRN IV PUSH 01/01/17 08:30 (Colace) 100 mg BID PO 01/01/17 09:00 01/01/17 09:16 (Microzide) 12.5 mg DAILY PO 01/02/17 09:00 (Cozaar) 50 mg DAILY PO 01/02/17 09:00 (Tylenol) 650 mg Q4H PRN PO 01/01/17 20:00 01/01/17 19:54 Physical Exam Vital Signs Vital Signs Date Time Temp Pulse Resp B/P (MAP) Pulse Ox O2 Delivery O2 Flow Rate FiO2 01/02/17 04:00 97.9 69 19 129/76 (93) 98 01/02/17 04:00 69 01/02/17 02:00 88 01/02/17 00:00 67 01/02/17 00:00 98.6 80 20 106/59 (75) 97 01/01/17 22:00 83 01/01/17 20:21 Room Air 01/01/17 20:00 83 01/01/17 20:00 98.9 83 25 115/63 (80) 94 01/01/17 18:00 79 01/01/17 16:00 98.0 76 12 96 01/01/17 16:00 76 01/01/17 14:00 78 01/01/17 13:00 85 01/01/17 12:46 01/01/17 12:30 97.8 84 20 148/70 (96) 95 01/01/17 08:57 98.3 83 18 145/73 (97) 96 Room Air Laboratory Laboratory Tests Test 01/01/17 12:27 01/01/17 14:00 01/01/17 21:54 01/02/17 03:40 Prothrombin Time 14.1 13.1 13.1 Prothromb Time International Ratio 1.3 1.2 1.2 Activated Partial Thromboplast Time 25.4 26.1 Nasal Screen MRSA (PCR) MRSA NOT DETECTED White Blood Count 4.0 Red Blood Count 4.56 Hemoglobin 12.5 Hematocrit 37.6 Mean Corpuscular Volume 82.4 Mean Corpuscular Hemoglobin 27.4 Mean Corpuscular Hemoglobin Concent 33.3 Red Cell Distribution Width 15.4 Platelet Count 120 Mean Platelet Volume 7.1 Neutrophils (%) (Auto) 68.8 Lymphocytes (%) (Auto) 13.2 Monocytes (%) (Auto) 15.3 Eosinophils (%) (Auto) 2.4 Basophils (%) (Auto) 0.3 Neutrophils # (Auto) 2.8 Lymphocytes # (Auto) 0.5 Monocytes # (Auto) 0.6 Eosinophils # (Auto) 0.1 Basophils # (Auto) 0.0 CBC Comment DIFF FINAL Differential Comment Blood Urea Nitrogen 12 Creatinine 0.94 Random Glucose 109 Calcium Level 8.4 Sodium Level 146 Potassium Level 4.8 Chloride Level 114 Carbon Dioxide Level 26.8 Anion Gap 5 Estimat Glomerular Filtration Rate 77 Result Diagram: 01/02/17 03401/02/17 034 Assessment and Plan Assessment and Plan OK to hold warfarin for 30d. Tristin Goodwin MD Jan 02, 2017 08:17
[2017-01-02] MEDS: SODIUM CHLORIDE 0.9% FLUSH 10 ML FLUSH IV FLUSH SCH ×2 (09:58→21:39)
[2017-01-02] MEDS: DOCUSATE SODIUM 100 MG CAP PO SCH ×2 (09:58→21:00)
[2017-01-02] MEDS: HYDROCHLOROTHIAZIDE 12.5 MG CAP PO SCH (09:58)
[2017-01-02] MEDS: PANTOPRAZOLE SOD 40 MG DELAYED RELEASE TAB PO SCH (09:58)
[2017-01-02] MEDS: LOSARTAN 50 MG TAB PO SCH (09:58)
--- NOTE | 2017-01-02 10:04 | HHI.PR ---
Subjective Remarks Follow up subdural hematoma, atrial fibrillation, hypertension. The patient states that he feels better today. No specific complaints at this time. Headache improved. Objective Vitals Vital Signs Date Time Temp Pulse Resp B/P (MAP) Pulse Ox O2 Delivery O2 Flow Rate FiO2 01/02/17 08:00 96 01/02/17 04:00 97.9 69 19 129/76 (93) 98 01/02/17 04:00 69 01/02/17 02:00 88 01/02/17 00:00 67 01/02/17 00:00 98.6 80 20 106/59 (75) 97 01/01/17 22:00 83 01/01/17 20:21 Room Air 01/01/17 20:00 83 01/01/17 20:00 98.9 83 25 115/63 (80) 94 01/01/17 18:00 79 01/01/17 16:00 98.0 76 12 96 01/01/17 16:00 76 01/01/17 14:00 78 01/01/17 13:00 85 01/01/17 12:46 01/01/17 12:30 97.8 84 20 148/70 (96) 95 I/O 01/01/17 01/01/17 01/01/17 01/02/17 01/02/17 01/02/17 07:00 15:00 23:00 07:00 15:00 23:00 Intake Total 511 ml 1500 ml Output Total 625 ml Balance 511 ml 875 ml Intake Oral 360 ml 500 ml IV Total 151 ml 1000 ml Output Urine Total 625 ml # Bowel Movements 1 0 Result Diagram: 01/02/17 03401/02/17 034 Imaging Last Impressions Head CT 01/02/17 0600 Signed Impressions: Service Date/Time: Monday, January 02, 2017 04:08 - CONCLUSION: Subacute left subdural hematoma superimposed on chronic bilateral cystic hygromas without change. No new blood. No midline shift. Ahsan Dodge MD Maxillofacial CT 01/01/17 0740 Signed Impressions: Service Date/Time: Sunday, January 01, 2017 07:43 - CONCLUSION: 1. Nasal septal fracture. Soft tissue swelling involving the bridge of the nose. Emmanuel Marrero Jr., MD Objective Remarks General: No acute distress. HEENT: Multiple contusions on the face. Swelling of the lips has improved. Heart: Regular rate and rhythm. No murmur. Lungs: Clear to auscultation bilaterally. No wheezes, rales, or rhonchi. Breathing is nonlabored. Abdomen: Soft, nontender, nondistended. Extremities: No lower extremity edema. Psych: Alert and oriented. Procedures None Urinary Catheter: No Vascular Central Line Catheter: No A/P Problem List: (1) Atrial fibrillation ICD Code: I48.91 - Unspecified atrial fibrillation (2) Hypertension ICD Code: I10 - Essential (primary) hypertension (3) Hyperlipidemia ICD Code: E78.5 - Hyperlipidemia, unspecified (4) Fall ICD Code: W19.XXXA - Unspecified fall, initial encounter Status: Acute (5) Anticoagulated on Coumadin ICD Code: Z51.81 - Encounter for therapeutic drug level monitoring; Z79.01 - nursing home (current) use of anticoagulants Status: Acute (6) Subdural hematoma ICD Code: I62.00 - Nontraumatic subdural hemorrhage, unspecified Status: Acute Assessment and Plan 1. Subdural hematoma: Management per neurosurgery. Repeat CT shows bleeding is unchanged. Coumadin on hold. Continue neuro checks. PT/OT. 2. Facial contusions, nasal septal fracture: Stable. Consider maxillofacial surgery consultation if necessary. 3. Atrial fibrillation: On Coumadin chronically. Appreciate cardiology recommendations. Okay to hold Coumadin for 30 days. 4. Hypertension: Blood pressure controlled. Continue losartan, HCTZ. 5. Hyperlipidemia: Statin on hold. 6. DVT prophylaxis: SCDs, TOMÁS humphries. Chemical prophylaxis contraindicated secondary to subdural hematoma. Problem Qualifiers (1) Fall: Qualified Codes: W19.XXXA - Unspecified fall, initial encounter Toni Soto MD Jan 02, 2017 10:04
--- NOTE | 2017-01-02 10:21 | HHI.NSPN ---
(Chriss Zapata) History Chief Complaint: Slight headache earlier relieved with Tylenol. 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 He fell forwards onto his face, complaining of facial pain. No complaint of headache, nausea, vomiting. No seizure reported. No pain weakness numbness in the extremities. He is on Coumadin for atrial fibrillation with reported INR of 2.4 yesterday. 01/02: The patient is awake and alert when seen this morning watching TV. He did say he had a slight headache earlier and was given Tylenol which relieved it. He states the swelling to his face is better and it is just sore. His Associate Store Manager was in to see him and said that it was okay for the patient to be off his warfarin for a month according to the patient. The patient did have a repeat CT scan of the brain this morning. (Chriss Zapata) System Review Comments HEENT: Swelling better to face which is sore. Nose is fractured. Integumentary: Facial abrasions. Neurologic: Slight headache earlier relieved with Tylenol. Chronic numbness to both feet, the left hand and left elbow without any change. Remainder of ROS is negative. (Chriss Zapata) Exam Results 12/31/16 12/31/16 01/01/17 01/01/17 01/02/17 01/02/17 06:00 18:00 06:00 18:00 06:00 18:00 Intake Total 1620 ml 391 ml Output Total 625 ml Balance 995 ml 391 ml Intake Oral 860 ml IV Total 760 ml 391 ml Output Urine Total 625 ml # Bowel Movements 1 Vital Signs Date Time Temp Pulse Resp B/P (MAP) Pulse Ox O2 Delivery O2 Flow Rate FiO2 01/02/17 08:00 96 01/02/17 04:00 97.9 69 19 129/76 (93) 98 01/02/17 04:00 69 01/02/17 02:00 88 01/02/17 00:00 67 10/28/17 00:00 98.6 80 20 106/59 (75) 97 01/01/17 22:00 83 01/01/17 20:21 Room Air 01/01/17 20:00 83 01/01/17 20:00 98.9 83 25 115/63 (80) 94 01/01/17 18:00 79 01/01/17 16:00 98.0 76 12 96 01/01/17 16:00 76 01/01/17 14:00 78 01/01/17 13:00 85 01/01/17 12:46 01/01/17 12:30 97.8 84 20 148/70 (96) 95 01/01/17 08:57 98.3 83 18 145/73 (97) 96 Room Air 01/01/17 07:42 (121) 01/01/17 07:38 18 17 97 01/01/17 07:33 86 14 181/84 (116) 96 01/01/17 07:26 98.0 77 13 191/86 (121) 97 (Chriss Zapata) Physical Examination GENERAL: Awake & alert, readily interacts, normal affect, no apparent distress. SKIN: Warm & dry w/abrasions to the face and left hand & forearm, o/w no rashes or ulcerations. HEENT: Normocephalic, abrasions to the mid face w/mild swelling minimally TTP, PERRLA 3 mm brisk, EOMI, MMM & pink, tongue midline to protrusion. NECK: Active ROM w/o pain, no JVD, trachea midline. CARDIOVASCULAR: S1S2 w/irregularly irregular rate w/o M/G/R, radial & pedal pulses 2+ bilaterally, cap refill < 2 sec, no pedal edema. Monitor is atrial fibrillation w/controlled ventricular response, no ectopy noted. RESPIRATORY: CTAB w/o W/R/R, equal excursion, nonlaboured, on RA. GASTROINTESTINAL: Abdomen soft, nontender, positive bowel sounds. MUSCULOSKELETAL: SCHULER w/o difficulty, no evident deformity or clubbing. NEUROLOGICAL: AAOx3. Speech clear & appropriate. Follows simple commands w/o difficulty. CN II-XII appear grossly intact. Sensation intact to light touch to all extremities except for toes of both feet , left hand digits and left elbow decreased. Motor strength 5/5 to all flexion & extension muscle groups. (Chriss Zapata) Lab, Micro, Other Results I personally reviewed the CT brain from this morning and compared it to yesterday's, the SDH is stable in appearance and there are no new acute findings. Recent Impressions Head CT 01/02/17 0600 Signed Impressions: Service Date/Time: Monday, January 02, 2017 04:08 - CONCLUSION: Subacute left subdural hematoma superimposed on chronic bilateral cystic hygromas without change. No new blood. No midline shift. Ahsan Dodge MD Maxillofacial CT 01/01/17 0740 Signed Impressions: Service Date/Time: Sunday, January 01, 2017 07:43 - CONCLUSION: 1. Nasal septal fracture. Soft tissue swelling involving the bridge of the nose. Emmanuel Marrero Jr., MD Head CT 01/01/17 0740 Signed Impressions: Service Date/Time: Sunday, January 01, 2017 07:41 - CONCLUSION: 1. Acute 5 mm subdural hematoma along the left frontal, temporal and parietal lobes as well as acute 3 mm right frontal subdural hematoma and probable acute left tentorial subdural hematoma. 2. No midline shift. 3. Underlying diffuse cerebral atrophy. 4. No acute infarct. Arley Sterling MD Laboratory Tests Test 01/01/17 08:00 01/01/17 12:27 01/01/17 14:00 01/01/17 21:54 White Blood Count 4.9 TH/MM3 Red Blood Count 5.21 MIL/MM3 Hemoglobin 14.4 GM/DL Hematocrit 43.1 % Mean Corpuscular Volume 82.6 FL Mean Corpuscular Hemoglobin 27.6 PG Mean Corpuscular Hemoglobin Concent 33.5 % Red Cell Distribution Width 15.2 % Platelet Count 136 TH/MM3 Mean Platelet Volume 7.4 FL Neutrophils (%) (Auto) 66.8 % Lymphocytes (%) (Auto) 15.7 % Monocytes (%) (Auto) 13.9 % Eosinophils (%) (Auto) 3.3 % Basophils (%) (Auto) 0.3 % Neutrophils # (Auto) 3.3 TH/MM3 Lymphocytes # (Auto) 0.8 TH/MM3 Monocytes # (Auto) 0.7 TH/MM3 Eosinophils # (Auto) 0.2 TH/MM3 Basophils # (Auto) 0.0 TH/MM3 CBC Comment DIFF FINAL Differential Comment Prothrombin Time 30.3 SEC 14.1 SEC 13.1 SEC Prothromb Time International Ratio 2.6 RATIO 1.3 RATIO 1.2 RATIO Activated Partial Thromboplast Time 32.4 SEC 25.4 SEC Blood Urea Nitrogen 16 MG/DL Creatinine 0.98 MG/DL Random Glucose 103 MG/DL Calcium Level 9.4 MG/DL Sodium Level 138 MEQ/L Potassium Level 4.2 MEQ/L Chloride Level 106 MEQ/L Carbon Dioxide Level 25.7 MEQ/L Anion Gap 6 MEQ/L Estimat Glomerular Filtration Rate 73 ML/MIN Nasal Screen MRSA (PCR) MRSA NOT DETECTED Test 01/02/17 03:40 White Blood Count 4.0 TH/MM3 Red Blood Count 4.56 MIL/MM3 Hemoglobin 12.5 GM/DL Hematocrit 37.6 % Mean Corpuscular Volume 82.4 FL Mean Corpuscular Hemoglobin 27.4 PG Mean Corpuscular Hemoglobin Concent 33.3 % Red Cell Distribution Width 15.4 % Platelet Count 120 TH/MM3 Mean Platelet Volume 7.1 FL Neutrophils (%) (Auto) 68.8 % Lymphocytes (%) (Auto) 13.2 % Monocytes (%) (Auto) 15.3 % Eosinophils (%) (Auto) 2.4 % Basophils (%) (Auto) 0.3 % Neutrophils # (Auto) 2.8 TH/MM3 Lymphocytes # (Auto) 0.5 TH/MM3 Monocytes # (Auto) 0.6 TH/MM3 Eosinophils # (Auto) 0.1 TH/MM3 Basophils # (Auto) 0.0 TH/MM3 CBC Comment DIFF FINAL Differential Comment Prothrombin Time 13.1 SEC Prothromb Time International Ratio 1.2 RATIO Activated Partial Thromboplast Time 26.1 SEC Blood Urea Nitrogen 12 MG/DL Creatinine 0.94 MG/DL Random Glucose 109 MG/DL Calcium Level 8.4 MG/DL Sodium Level 146 MEQ/L Potassium Level 4.8 MEQ/L Chloride Level 114 MEQ/L Carbon Dioxide Level 26.8 MEQ/L Anion Gap 5 MEQ/L Estimat Glomerular Filtration Rate 77 ML/MIN (Chriss Zapata) Medical Decision Making Impression and Plan Impression: 1. Acute left greater than right subdural hematoma without significant mass effect 2. Atrial fibrillation on Coumadin 3. Hypertension 4. Coronary artery disease 5. Dyslipidemia 6. History of prostate cancer 7. Facial contusions with nasal septal fracture Patient doing well and is neurologically intact. CT brain this morning w/stable SDH, no new acute findings. Reviewed labs. Plan: 1. Frequent neuro checks. 2. Hold Coumadin. 3. Admit surgical intensive care unit for close neurologic checks and vital signs 4. Follow-up CT scan as needed for changes in neurologic status. 5. Hypertension. Maintain current medications with as needed medications for adequate control 6. Facial contusions. Conservative treatment. 7. Nasal septal fracture. Conservative treatment. 8. Dyslipidemia. Hold statin medications for now due to subdural hematomas 9. Medicine consultation to assist with medical management hypertension, coronary artery disease 10. Ulcer prophylaxis. 11. Non-chemical DVT prophylaxis due to subdural hematoma. 12. Advance diet to heart healthy. 13. Plan to transfer to floor this afternoon, possible discharge tomorrow. 14. Will d/c IVF since taking PO w/o difficulty. (Chriss Zapata) Attending Statement The exam, history, and the medical decision-making described in the above note were completed with the assistance of the mid-level provider. I reviewed and agree with the findings presented. I attest that I had a [id number] encounter with the patient on the same day, and personally performed and documented my assessment and findings in the medical record. On my examination today the patient has clear respirations Irregular rhythm on cardiac exam Facial ecchymosis and contusions gradually improving Abdomen soft Awake alert oriented conversant and appropriate Speech is clear Sensation light touch and motor function intact all extremities Discussed at length with the patient. He has been transferred to the regular floor. CT scan 01/02/17 reveals improving small left subdural hematoma without significant mass effect. Continue therapy. Non-chemical DVT prophylaxis Cardiology notes reviewed Plan to discontinue anticoagulation for approximately 30 days, pending follow- up CT scan head an approximately 10 days which can be accomplished as an outpatient. Plan discharge home when medically stable (Lex Graff MD) Chriss Zapata Jan 02, 2017 10:21 Lex Graff MD Jan 02, 2017 21:46
[2017-01-03 01:00] VITALS: BP 136/65; PULSE 79; RESP 18; TEMP 98.2; O2SAT 96
[2017-01-03 06:00] VITALS: BP 129/60; PULSE 78; RESP 18; TEMP 98; O2SAT 95
[2017-01-03 08:00] VITALS: BP 133/81; PULSE 82; RESP 18; TEMP 97.7; O2SAT 96
[2017-01-03] MEDS: LOSARTAN 50 MG TAB PO SCH (08:02)
[2017-01-03] MEDS: PANTOPRAZOLE SOD 40 MG DELAYED RELEASE TAB PO SCH (08:02)
[2017-01-03] MEDS: HYDROCHLOROTHIAZIDE 12.5 MG CAP PO SCH (08:03)
[2017-01-03] MEDS: SODIUM CHLORIDE 0.9% FLUSH 10 ML FLUSH IV FLUSH SCH (08:07)
[2017-01-03] MEDS: DOCUSATE SODIUM 100 MG CAP PO SCH (08:07)
--- NOTE | 2017-01-03 09:46 | HHI.PR ---
Subjective Remarks Follow-up atrial fibrillation, hypertension, fall. The patient states that he feels better today. Feels that he is ready to go home. Denies chest pain or dyspnea. No lightheadedness or dizziness. He has been ambulating in the room. Objective Vitals Vital Signs Date Time Temp Pulse Resp B/P (MAP) Pulse Ox O2 Delivery O2 Flow Rate FiO2 01/03/17 08:00 97.7 82 18 133/81 (98) 96 01/03/17 06:00 98.0 78 18 129/60 (83) 95 01/03/17 01:00 98.2 79 18 136/65 (88) 96 01/02/17 21:21 97.7 77 18 125/63 (83) 97 01/02/17 20:00 75 01/02/17 16:00 97.5 71 17 124/61 (82) 95 01/02/17 12:00 75 01/02/17 12:00 98.7 75 18 112/62 (79) 94 01/02/17 10:00 84 I/O 01/02/17 01/02/17 01/02/17 01/03/17 01/03/17 01/03/17 07:00 15:00 23:00 07:00 15:00 23:00 Intake Total 471 ml Balance 471 ml IV Total 471 ml # Voids 5 1 # Bowel Movements 3 Result Diagram: 01/02/17 0340 01/02/17 0340 Imaging Last Impressions Head CT 01/02/17 0600 Signed Impressions: Service Date/Time: Monday, January 02, 2017 04:08 - CONCLUSION: Subacute left subdural hematoma superimposed on chronic bilateral cystic hygromas without change. No new blood. No midline shift. Ahsan Dodge MD Maxillofacial CT 01/01/17 0740 Signed Impressions: Service Date/Time: Sunday, January 01, 2017 07:43 - CONCLUSION: 1. Nasal septal fracture. Soft tissue swelling involving the bridge of the nose. Emmanuel Marrero Jr., MD Objective Remarks General: No acute distress. Sitting up in a chair. HEENT: Multiple contusions on the face. Swelling of the lips has improved. Heart: Regular rate and rhythm. No murmur. Lungs: Clear to auscultation bilaterally. No wheezes, rales, or rhonchi. Breathing is nonlabored. Abdomen: Soft, nontender, nondistended. Extremities: No lower extremity edema. Psych: Alert and oriented. Procedures None Urinary Catheter: No Vascular Central Line Catheter: No A/P Problem List: (1) Atrial fibrillation ICD Code: I48.91 - Unspecified atrial fibrillation (2) Hypertension ICD Code: I10 - Essential (primary) hypertension (3) Hyperlipidemia ICD Code: E78.5 - Hyperlipidemia, unspecified (4) Fall ICD Code: W19.XXXA - Unspecified fall, initial encounter Status: Acute (5) Anticoagulated on Coumadin ICD Code: Z51.81 - Encounter for therapeutic drug level monitoring; Z79.01 - FDC (current) use of anticoagulants Status: Acute (6) Subdural hematoma ICD Code: I62.00 - Nontraumatic subdural hemorrhage, unspecified Status: Acute Assessment and Plan 1. Subdural hematoma: Management per neurosurgery. Repeat CT shows bleeding is unchanged. Coumadin on hold. Continue neuro checks. PT/OT. 2. Facial contusions, nasal septal fracture: Stable. Consider maxillofacial surgery consultation if necessary. 3. Atrial fibrillation: On Coumadin chronically. Appreciate cardiology recommendations. Okay to hold Coumadin for 30 days. 4. Hypertension: Blood pressure well controlled. Continue losartan, HCTZ. 5. Hyperlipidemia: Statin on hold. 6. DVT prophylaxis: TOMÁS Zambrano. Chemical prophylaxis contraindicated secondary to subdural hematoma. Discharge Planning Per neurosurgery, likely discharge home today. Problem Qualifiers (1) Fall: Qualified Codes: W19.XXXA - Unspecified fall, initial encounter Toni Soto MD Jan 03, 2017 09:46
[2017-01-03 10:37] VITALS: PULSE 78
[2017-01-03 12:00] VITALS: BP 145/77; PULSE 91; RESP 20; TEMP 97.4; O2SAT 97
--- NOTE | 2017-01-03 12:01 | HHI.NSPN ---
(Chriss Zapata) History Chief Complaint: Face hurts from the impact. 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 He fell forwards onto his face, complaining of facial pain. No complaint of headache, nausea, vomiting. No seizure reported. No pain weakness numbness in the extremities. He is on Coumadin for atrial fibrillation with reported INR of 2.4 yesterday. 01/02: The patient is awake and alert when seen this morning watching TV. He did say he had a slight headache earlier and was given Tylenol which relieved it. He states the swelling to his face is better and it is just sore. His Hearing Aid Repair Technician was in to see him and said that it was okay for the patient to be off his warfarin for a month according to the patient. The patient did have a repeat CT scan of the brain this morning. 01/03: This morning the patient is doing well and had no complaints. He did say that his face does hurt. He reports taking Tylenol once last night so that his face wouldn't hurt during the night. He was seen up and about in the room looking out the window prior to being seen. (Chriss Zapata) System Review Comments HEENT: Face hurts. Integumentary: Facial abrasions. Neurologic: Chronic numbness to both feet, the left hand and left elbow without any change. Remainder of ROS is negative. (Chriss Zapata) Exam Results 01/01/17 01/01/17 01/02/17 01/02/17 01/03/17 01/03/17 06:00 18:00 06:00 18:00 06:00 18:00 Intake Total 1620 ml 391 ml 471 ml Output Total 625 ml Balance 995 ml 391 ml 471 ml Intake Oral 860 ml IV Total 760 ml 391 ml 471 ml Output Urine Total 625 ml # Voids 5 1 # Bowel Movements 1 3 Vital Signs Date Time Temp Pulse Resp B/P (MAP) Pulse Ox O2 Delivery O2 Flow Rate FiO2 01/03/17 10:37 78 01/03/17 08:00 97.7 82 18 133/81 (98) 96 01/03/17 06:00 98.0 78 18 129/60 (83) 95 01/03/17 01:00 98.2 79 18 136/65 (88) 96 01/02/17 21:21 97.7 77 18 125/63 (83) 97 01/02/17 20:00 75 01/02/17 16:00 97.5 71 17 124/61 (82) 95 01/02/17 12:00 75 01/02/17 12:00 98.7 75 18 112/62 (79) 94 01/02/17 10:00 84 01/02/17 08:00 98.7 88 24 124/83 (97) 97 01/02/17 08:00 96 01/02/17 04:00 97.9 69 19 129/76 (93) 98 01/02/17 04:00 69 01/02/17 02:00 88 01/02/17 00:00 67 01/02/17 00:00 98.6 80 20 106/59 (75) 97 01/01/17 22:00 83 01/01/17 20:21 Room Air 01/01/17 20:00 83 01/01/17 20:00 98.9 83 25 115/63 (80) 94 01/01/17 18:00 79 01/01/17 16:00 98.0 76 12 96 01/01/17 16:00 76 01/01/17 14:00 78 01/01/17 13:00 85 01/01/17 12:46 01/01/17 12:30 97.8 84 20 148/70 (96) 95 01/01/17 08:57 98.3 83 18 145/73 (97) 96 Room Air 01/01/17 07:42 (121) 01/01/17 07:38 18 17 97 01/01/17 07:33 86 14 181/84 (116) 96 01/01/17 07:26 98.0 77 13 191/86 (121) 97 (Chriss Zapata) Physical Examination GENERAL: Awake & alert, readily interacts, normal affect, no apparent distress. SKIN: Warm & dry w/abrasions to the face and left hand & forearm, o/w no rashes or ulcerations. HEENT: Normocephalic, abrasions to the mid face w/mild swelling minimally TTP at nasal bridge, PERRLA 3 mm brisk, EOMI, MMM & pink, tongue midline to protrusion. NECK: Active ROM w/o pain, no JVD, trachea midline. CARDIOVASCULAR: S1S2 w/irregularly irregular rate w/o M/G/R, radial & pedal pulses 2+ bilaterally, cap refill < 2 sec, no pedal edema. Telemetry is atrial fibrillation w/controlled ventricular response, no ectopy noted. RESPIRATORY: CTAB w/o W/R/R, equal excursion, nonlaboured, on RA. GASTROINTESTINAL: Abdomen soft, nontender, positive bowel sounds. MUSCULOSKELETAL: SCHULER w/o difficulty, no evident deformity or clubbing. NEUROLOGICAL: AAOx3. Speech clear & appropriate. Follows simple commands w/o difficulty. CN II-XII appear grossly intact. Sensation intact to light touch to all extremities except for toes of both feet , left hand digits and left elbow decreased. Motor strength 5/5 to all flexion & extension muscle groups. (Chriss Zapata) Lab, Micro, Other Results Recent Impressions Head CT 01/02/17 0600 Signed Impressions: Service Date/Time: Monday, January 02, 2017 04:08 - CONCLUSION: Subacute left subdural hematoma superimposed on chronic bilateral cystic hygromas without change. No new blood. No midline shift. Ahsan Dodge MD Maxillofacial CT 01/01/17 0740 Signed Impressions: Service Date/Time: Sunday, January 01, 2017 07:43 - CONCLUSION: 1. Nasal septal fracture. Soft tissue swelling involving the bridge of the nose. Emmanuel Marrero Jr., MD Head CT 01/01/17 0740 Signed Impressions: Service Date/Time: Sunday, January 01, 2017 07:41 - CONCLUSION: 1. Acute 5 mm subdural hematoma along the left frontal, temporal and parietal lobes as well as acute 3 mm right frontal subdural hematoma and probable acute left tentorial subdural hematoma. 2. No midline shift. 3. Underlying diffuse cerebral atrophy. 4. No acute infarct. Arley Sterling MD Laboratory Tests Test 01/01/17 08:00 01/01/17 12:27 01/01/17 14:00 01/01/17 21:54 White Blood Count 4.9 TH/MM3 Red Blood Count 5.21 MIL/MM3 Hemoglobin 14.4 GM/DL Hematocrit 43.1 % Mean Corpuscular Volume 82.6 FL Mean Corpuscular Hemoglobin 27.6 PG Mean Corpuscular Hemoglobin Concent 33.5 % Red Cell Distribution Width 15.2 % Platelet Count 136 TH/MM3 Mean Platelet Volume 7.4 FL Neutrophils (%) (Auto) 66.8 % Lymphocytes (%) (Auto) 15.7 % Monocytes (%) (Auto) 13.9 % Eosinophils (%) (Auto) 3.3 % Basophils (%) (Auto) 0.3 % Neutrophils # (Auto) 3.3 TH/MM3 Lymphocytes # (Auto) 0.8 TH/MM3 Monocytes # (Auto) 0.7 TH/MM3 Eosinophils # (Auto) 0.2 TH/MM3 Basophils # (Auto) 0.0 TH/MM3 CBC Comment DIFF FINAL Differential Comment Prothrombin Time 30.3 SEC 14.1 SEC 13.1 SEC Prothromb Time International Ratio 2.6 RATIO 1.3 RATIO 1.2 RATIO Activated Partial Thromboplast Time 32.4 SEC 25.4 SEC Blood Urea Nitrogen 16 MG/DL Creatinine 0.98 MG/DL Random Glucose 103 MG/DL Calcium Level 9.4 MG/DL Sodium Level 138 MEQ/L Potassium Level 4.2 MEQ/L Chloride Level 106 MEQ/L Carbon Dioxide Level 25.7 MEQ/L Anion Gap 6 MEQ/L Estimat Glomerular Filtration Rate 73 ML/MIN Nasal Screen MRSA (PCR) MRSA NOT DETECTED Test 01/02/17 03:40 White Blood Count 4.0 TH/MM3 Red Blood Count 4.56 MIL/MM3 Hemoglobin 12.5 GM/DL Hematocrit 37.6 % Mean Corpuscular Volume 82.4 FL Mean Corpuscular Hemoglobin 27.4 PG Mean Corpuscular Hemoglobin Concent 33.3 % Red Cell Distribution Width 15.4 % Platelet Count 120 TH/MM3 Mean Platelet Volume 7.1 FL Neutrophils (%) (Auto) 68.8 % Lymphocytes (%) (Auto) 13.2 % Monocytes (%) (Auto) 15.3 % Eosinophils (%) (Auto) 2.4 % Basophils (%) (Auto) 0.3 % Neutrophils # (Auto) 2.8 TH/MM3 Lymphocytes # (Auto) 0.5 TH/MM3 Monocytes # (Auto) 0.6 TH/MM3 Eosinophils # (Auto) 0.1 TH/MM3 Basophils # (Auto) 0.0 TH/MM3 CBC Comment DIFF FINAL Differential Comment Prothrombin Time 13.1 SEC Prothromb Time International Ratio 1.2 RATIO Activated Partial Thromboplast Time 26.1 SEC Blood Urea Nitrogen 12 MG/DL Creatinine 0.94 MG/DL Random Glucose 109 MG/DL Calcium Level 8.4 MG/DL Sodium Level 146 MEQ/L Potassium Level 4.8 MEQ/L Chloride Level 114 MEQ/L Carbon Dioxide Level 26.8 MEQ/L Anion Gap 5 MEQ/L Estimat Glomerular Filtration Rate 77 ML/MIN (Chriss Zapata) Medical Decision Making Impression and Plan Impression: 1. Acute left greater than right subdural hematoma without significant mass effect 2. Atrial fibrillation on Coumadin 3. Hypertension 4. Coronary artery disease 5. Dyslipidemia 6. History of prostate cancer 7. Facial contusions with nasal septal fracture Patient continues to do well and remains neurologically intact. CT brain w/stable SDH, no new acute findings. Plan: 1. Frequent neuro checks. 2. Hold Coumadin. 3. Admit surgical intensive care unit for close neurologic checks and vital signs 4. Follow-up CT scan as needed for changes in neurologic status. 5. Hypertension. Maintain current medications with as needed medications for adequate control 6. Facial contusions. Conservative treatment. 7. Nasal septal fracture. Conservative treatment. 8. Dyslipidemia. Hold statin medications for now due to subdural hematomas 9. Medicine consultation to assist with medical management hypertension, coronary artery disease 10. Ulcer prophylaxis. 11. Non-chemical DVT prophylaxis due to subdural hematoma. 12. Advance diet to heart healthy. 13. Will discharge home today. (Chriss Zapata) Attending Statement The exam, history, and the medical decision-making described in the above note were completed with the assistance of the mid-level provider. I reviewed and agree with the findings presented. I attest that I had a [id number] encounter with the patient on the same day, and personally performed and documented my assessment and findings in the medical record. He is up in a chair today, appears comfortable. Facial ecchymosis gradually improving. Awake and alert Oriented X 3 Speech is clear Conversant and appropriate Follow simple commands well Answers questions appropriately Reasonable judgment and insight Recent and remote memory are intact No evidence of anxiety or depression Pupils are equal and reactive to accommodation. Extra-ocular movements, visual dickens to confrontation, facial sensorimotor, tongue, palate, sternocleidomastoid testing, hearing to finger rub testing, and bilateral shoulder shrug are all intact. Sensation is intact to light touch in all extremities Strength normal major flexion and extension groups all extremities Meghan's absent bilaterally No ankle clonus Plantar responses absent bilateral Fine motor movements intact upper extremities Discussed findings at length with the patient. He is ambulating independently, tolerating diet. Pain adequately controlled with Tylenol. He will be discharged home today. He declines home health care. Signs and symptoms to watch for, activity precautions discussed He will hold Coumadin 4 weeks, fish oil, aspirin 2 weeks. Follow-up CT scan head 10-14 days with follow-up appointment. (Lex Graff MD) Chriss Zapata Jan 03, 2017 12:01 Lex Graff MD Jan 03, 2017 12:53
--- NOTE | 2017-01-03 12:13 | HHI.DCPOC ---
Discharge Care Plan Diagnosis: (1) Fall (2) Subdural hematoma (3) Facial contusion (4) Nasal fracture (5) Atrial fibrillation (6) Anticoagulated on Coumadin Additional Problems Facial abrasions Goals to Promote Your Health * To prevent worsening of your condition and complications * To maintain your health at the optimal level Take acetaminophen according to the package directions as needed for pain. Do not take any products containing aspirin or NSAIDs (ibuprofen, naproxen, Aleve, Advil, etc.). You may resume taking it in two weeks. Do not take any fish oil. You may resume taking it in two weeks. Do not take any warfarin (Coumadin). You may resume taking it in one month. You need to have a repeat CT brain in 10 days and follow up in the office after that. Directions to Meet Your Goals Take your medications as prescribed Follow your dietary instruction Follow activity as directed Take acetaminophen according to the package directions as needed for pain. Do not take any products containing aspirin or NSAIDs (ibuprofen, naproxen, Aleve, Advil, etc.). You may resume taking it in two weeks. Do not take any fish oil. You may resume taking it in two weeks. Do not take any warfarin (Coumadin). You may resume taking it in one month. You need to have a repeat CT brain in 10 days and follow up in the office after that. Keep your appointments as scheduled Take your immunizations and boosters as scheduled If your symptoms worsen call your PCP, if no PCP go to Urgent Care Center or Emergency Room Smoking is Dangerous to Your Health. Avoid second hand smoke Call the 24-hour hour crisis hotline for domestic abuse at Chriss Zapata Jan 03, 2017 12:13 Lex Graff MD Jan 03, 2017 12:55
--- NOTE | 2017-01-03 12:18 | HHI.DS ---
Chriss ZapataJluis BARILLAS 01/03/17 1218: Discharge Summary Admission Date Jan 01, 2017 at 08:34 Discharge Date: Jan 03, 2017 Admitting Diagnosis subdural (1) Fall Diagnosis: Secondary ICD Code: W19.XXXA - Unspecified fall, initial encounter Status: Acute (2) Subdural hematoma Diagnosis: Principal ICD Code: I62.00 - Nontraumatic subdural hemorrhage, unspecified Status: Acute (3) Facial contusion Diagnosis: Secondary ICD Code: S00.83XA - Contusion of other part of head, initial encounter Status: Acute (4) Nasal fracture Diagnosis: Secondary ICD Code: S02.2XXA - Fracture of nasal bones, initial encounter for closed fracture Status: Acute (5) Atrial fibrillation Diagnosis: Secondary ICD Code: I48.91 - Unspecified atrial fibrillation Status: Chronic (6) Anticoagulated on Coumadin Diagnosis: Secondary ICD Code: Z51.81 - Encounter for therapeutic drug level monitoring; Z79.01 - half-way (current) use of anticoagulants Status: Chronic (7) Hypertension Diagnosis: Secondary ICD Code: I10 - Essential (primary) hypertension Status: Chronic (8) Hyperlipidemia Diagnosis: Secondary ICD Code: E78.5 - Hyperlipidemia, unspecified Status: Chronic Brief History 81-year-old male who 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 He fell forwards onto his face, complaining of facial pain. No complaint of headache, nausea, vomiting. No seizure reported. No pain weakness numbness in the extremities. He is on Coumadin for atrial fibrillation with reported INR of 2.4 yesterday. CBC/BMP: 01/02/17 0340 01/02/17 0340 Significant Findings Laboratory Tests Test 01/01/17 08:00 01/01/17 12:27 01/01/17 14:00 01/01/17 21:54 Platelet Count 136 TH/MM3 (150-450) Monocytes (%) (Auto) 13.9 % (0.0-8.0) Lymphocytes # (Auto) 0.8 TH/MM3 (1.0-4.8) Prothrombin Time 30.3 SEC (9.8-11.6) 14.1 SEC (9.8-11.6) 13.1 SEC (9.8-11.6) Activated Partial Thromboplast Time 32.4 SEC (24.3-30.1) Estimat Glomerular Filtration Rate 73 ML/MIN (>89) Test 01/02/17 03:40 Hemoglobin 12.5 GM/DL (13.0-17.0) Hematocrit 37.6 % (39.0-51.0) Platelet Count 120 TH/MM3 (150-450) Monocytes (%) (Auto) 15.3 % (0.0-8.0) Lymphocytes # (Auto) 0.5 TH/MM3 (1.0-4.8) Prothrombin Time 13.1 SEC (9.8-11.6) Random Glucose 109 MG/DL (74-106) Calcium Level 8.4 MG/DL (8.5-10.1) Sodium Level 146 MEQ/L (136-145) Chloride Level 114 MEQ/L (98-107) Estimat Glomerular Filtration Rate 77 ML/MIN (>89) Hospital Course 01/01: 81-year-old male who 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 He fell forwards onto his face, complaining of facial pain. No complaint of headache, nausea, vomiting. No seizure reported. No pain weakness numbness in the extremities. He is on Coumadin for atrial fibrillation with reported INR of 2.4 yesterday. 01/02: The patient is awake and alert when seen this morning watching TV. He did say he had a slight headache earlier and was given Tylenol which relieved it. He states the swelling to his face is better and it is just sore. His Photo Optics Technician was in to see him and said that it was okay for the patient to be off his warfarin for a month according to the patient. The patient did have a repeat CT scan of the brain this morning. 01/03: This morning the patient is doing well and had no complaints. He did say that his face does hurt. He reports taking Tylenol once last night so that his face wouldn't hurt during the night. He was seen up and about in the room looking out the window prior to being seen. Pt Condition on Discharge: Good Discharge Disposition: Discharge Home Discharge Instructions DIET: Follow Instructions for: As Tolerated, No Restrictions ACTIVITIES You can perform: Shower/Bath, Full Weight Bearing Activities to Avoid: Lifting/Bending, Strenuous Activity, Driving Additional Information Take acetaminophen according to the package directions as needed for pain. Do not take any products containing aspirin or NSAIDs (ibuprofen, naproxen, Aleve, Advil, etc.). You may resume taking it in two weeks. Do not take any fish oil. You may resume taking it in two weeks. Do not take any warfarin (Coumadin). You may resume taking it in one month. You need to have a repeat CT brain in 10 days and follow up in the office after that. Lex Graff MD 01/03/17 1255: Discharge Summary CBC/BMP: 01/02/17 0340 01/02/17 0340 Chriss Zapata Jan 03, 2017 12:18 Lex Graff MD Jan 03, 2017 12:55
== END 2017-01-03 14:26 | disposition home or self-care (01) | DRG 84 ==
LOC: NEPE 07:24 → NEDA 08:34 → N03B 12:40 → N05A 01-02 15:31
PROVIDERS: ADMIT Neurological Surgery; ATTEND Neurological Surgery
DX: S06.5X9A Traumatic subdural hemorrhage with loss of consciousness of unspecified duration, initial encounter (principal); I48.91 Unspecified atrial fibrillation; I25.10 Atherosclerotic heart disease of native coronary artery without angina pectoris; Z79.01 Long term (current) use of anticoagulants; S02.2XXA Fracture of nasal bones, initial encounter for closed fracture; S00.81XA Abrasion of other part of head, initial encounter; I10 Essential (primary) hypertension; E78.5 Hyperlipidemia, unspecified; H91.90 Unspecified hearing loss, unspecified ear; W01.0XXA Fall on same level from slipping, tripping and stumbling without subsequent striking against object, initial encounter; Y92.69 Other specified industrial and construction area as the place of occurrence of the external cause; Z85.46 Personal history of malignant neoplasm of prostate; Z87.891 Personal history of nicotine dependence; Z95.0 Presence of cardiac pacemaker
CPT/HCPCS: 70450; 70486; 80048; 85025; 85610; 85730; 86850; 86900; 86901; 87641; 90714; 94150; C9132; J3430; J3480

== ENCOUNTER 2017-02-12 07:55 | Inpatient (IN) | payer MEDICARE, BC ==
[2017-02-12] VITALS (8 sets, daily range): BP systolic 135–171; BP diastolic 70–97; PULSE 77–94; RESP 16–25; TEMP 96.5–98.2; O2SAT 96–98
[~2017-02-12] VITALS: Ht 165.1 cm; Wt 67.0 kg
[~2017-02-12 07:55] MED LIST changes: -ASPI-110 PO; -CENTTAB PO; -OMEGCAP PO; -WARF-18 PO
[2017-02-12] MEDS ORDERED: WARF-18 PO ×2 (08:18→08:30)
[2017-02-12] MEDS ORDERED: FISHCAP4 PO (08:31)
[2017-02-12] MEDS ORDERED: ASPI1TAB57 PO (08:31)
[2017-02-12 08:47] LABS: AUTOMATED NEUTROPHIL # 3.6 TH/MM3 (1.8-7.7); BASOPHIL % 0.4 % (0.0-2.0); EOSINOPHIL # 0.1 TH/MM3 (0-0.4); EOSINOPHIL % 2.6 % (0.0-4.0); HEMATOCRIT 39.7 % (39.0-51.0); HEMO FLAGS DIFF FINAL; LYMPH % 11.6 % (9.0-44.0); LYMPHOCYTE # 0.6 TH/MM3 (1.0-4.8); MEAN CELL VOLUME 81.1 FL (80.0-100.0); MEAN CORPUSCULAR HEMOGLOBIN 27.2 PG (27.0-34.0); MEAN CORPUSCULAR HGB CONC 33.5 % (32.0-36.0); MONO % 12.4 % (0.0-8.0); PLATELET COUNT 146 TH/MM3 (150-450); RED BLOOD COUNT 4.89 MIL/MM3 (4.50-5.90)
[2017-02-12 08:59] LABS: APTT (PATIENT) 30.1 SEC (24.3-30.1); INTERNATIONAL NORMALIZED RATIO 2.2 RATIO; PROTHROMBIN TIME - PATIENT 22.2 SEC (9.8-11.6)
[2017-02-12] MEDS ORDERED: PHYTONADIONE INJ 10 MG in SODIUM CHLORIDE 0.9% INJ 50 ML IV ONE (09:00)
[2017-02-12 09:04] LABS: ALT (GPT) 34 U/L (12-78); ANION GAP 7 MEQ/L (5-15); AST (GOT) 31 U/L (15-37); BLOOD UREA NITROGEN 16 MG/DL (7-18); CHLORIDE 108 MEQ/L (98-107); GLOMERULAR FILTRATION RATE 71 ML/MIN (>89); SODIUM (NA) 141 MEQ/L (136-145)
--- NOTE | 2017-02-12 09:05 | RADRPT ---
EXAM DATE/TIME: 02/12/2017 08:31 [facility] COMPARISON: CT BRAIN W/O CONTRAST, January 02, 2017, 4:08. INDICATIONS : Headache and dizziness this morning. RADIATION DOSE: 56.35 CTDIvol (mGy) MEDICAL HISTORY : Cardiovascular disease. Hypertension. Carcinoma, prostate.Intracranial hemorrhage. SURGICAL HISTORY : Pacemaker. Appendectomy.Carotid endarterectomy. ENCOUNTER: Initial ACUITY: 1 day PAIN SCALE: 5/10 LOCATION: Bilateral temporal TECHNIQUE: Multiple contiguous axial images were obtained of the head. Using automated exposure control and adj ustment of the mA and/or kV according to patient size, radiation dose was kept as low as reasonably a chievable to obtain optimal diagnostic quality images. DICOM format image data is available electro nically for review and comparison. FINDINGS: CEREBRUM: Interval enlargement of the previously seen hygromas. There is increased density in both collections with a gradient from the front suggesting a hematocrit. There is also linear areas of acute blood in the left collection with a resulting 6 mm left to right subfalcine shift. POSTERIOR FOSSA: Stable atrophic changes in the cerebellum. The 4th ventricle is midline. The cerebellopontine angle is unremarkable. EXTRACRANIAL: The visualized portion of the orbits is intact. Large nasal antral window on the right. SKULL: The calvaria is intact. No evidence of skull fracture. CONCLUSION: 1. Worsening bilateral subdural hygromas with findings of interval subacute hemorrhages bilaterally. 2. In addition, there is an acute component on the left with a resulting 6 mm left to right subfalcin e shift. 3. Stable cerebellar atrophy. 4. Results were discussed with Dr. Funes in the ED at the time of dictation. Sergio Boucher MD on February 12, 2017 at 8:57 Board Certified Radiologist. This report was verified electronically.
[2017-02-12 09:06] LABS: ALKALINE PHOSPHATASE 65 U/L (45-117); TOTAL BILIRUBIN ADULT 1.6 MG/DL (0.2-1.0)
[2017-02-12] MEDS ORDERED: PROTHROMBIN COMPLEX CONC INJ 1,500 UNITS in SYRINGE/BAG 1 EA IV ONE (09:30)
--- NOTE | 2017-02-12 09:44 | PD ---
HPI Chief Complaint: Dizziness Time Seen by Provider: 08:15 Travel History International Travel<30 days: No Contact w/Intl Traveler<30days: No Traveled to known affect area: No History of Present Illness HPI This is an 81-year-old male who presents to the emergency department having had a traumatic subdural hematoma in December, here today with several days of headache and one day of dizziness described as feeling like he is falling to the right side with difficulty walking, constant, moderate severity associated with some double vision. He says his headache is frontal and mild. He says 6 days ago he restarted his Coumadin for atrial fibrillation. 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) Psychiatric: No Reproductive: No Respiratory: No Tetanus Vaccination: < 5 Years Influenza Vaccination: Yes Past Surgical History Appendectomy: Yes Cardiac Surgery: Yes (pacer, carotid artery ) Pacemaker: Yes Other Surgery: Yes (left carotid endarterectomy) Social History Alcohol Use: No Tobacco Use: No Substance Use: No Allergies-Medications (Allergen,Severity, Reaction): Coded Allergies: No Known Allergies (Unverified Allergy, Unknown, 02/12/17) Reported Meds & Prescriptions Reported Meds & Active Scripts Active Reported Aspirin 81 (Aspirin) 81 Mg Tabdr 81 Mg PO DAILY Fish Oil + D3 (Fish Oil-Cholecalciferol) 1,200-1,000 Mg-Unit Cap 1 Cap PO TID Warfarin 2.5 Mg Tab 2.5 Mg PO DAILY Hydrochlorothiazide 12.5 Mg Tab 12.5 Mg PO DAILY Losartan (Losartan Potassium) 50 Mg Tab 50 Mg PO DAILY Alpha Lipoic Acid 200 Mg Cap 200 Mg PO DAILY Crestor (Rosuvastatin Calcium) 5 Mg Tab 5 Mg PO DAILY Probiotic (Lactobacillus Acidophilus) 1 Cap Cap 1 Cap PO DAILY Review of Systems Except as stated in HPI: all other systems reviewed are Neg Physical Exam Narrative GENERAL:Well appearing, no acute distress SKIN: Focused skin assessment warm and dry. HEAD: Atraumatic. Normocephalic. EYES: Pupils equal and round. No injection or drainage. ENT: Moist mucous membranes NECK: Trachea midline. CARDIOVASCULAR: Regular rate and rhythm. No murmur appreciated. RESPIRATORY: Clear to auscultation. Breath sounds equal bilaterally. GASTROINTESTINAL: Abdomen soft, non-tender, nondistended. MUSCULOSKELETAL: No obvious deformities. NEUROLOGICAL: Awake and alert. No obvious cranial nerve deficits. No dysarthria or aphasia. No upper or lower extremity drift. No upper extremity ataxia. Visual dickens intact. PSYCHIATRIC: Appropriate mood and affect; insight and judgment normal. Data Data Last Documented VS Vital Signs Date Time Temp Pulse Resp B/P (MAP) Pulse Ox O2 Delivery O2 Flow Rate FiO2 02/12/17 09:10 97.8 94 16 155/72 (99) 97 Room Air Orders Orders Complete Blood Count With Diff (02/12/17 08:25) Comprehensive Metabolic Panel (02/12/17 08:25) ^ Insert Iv (02/12/17 08:25) Prothrombin Time / Inr (Pt) (02/12/17 08:25) Act Partial Throm Time (Ptt) (02/12/17 08:25) Ct Brain W/O Iv Contrast(Rout) (02/12/17 ) ^ Lab Follow Up (02/12/17 08:51) Type And Screen (02/12/17 08:51) Phytonadione Inj (Vitamin K Inj) (02/12/17 09:00) Prothrombin Complex Conc Inj (Kcentra In (02/12/17 09:30) Labs Laboratory Tests Test 02/12/17 08:35 White Blood Count 5.0 TH/MM3 Red Blood Count 4.89 MIL/MM3 Hemoglobin 13.3 GM/DL Hematocrit 39.7 % Mean Corpuscular Volume 81.1 FL Mean Corpuscular Hemoglobin 27.2 PG Mean Corpuscular Hemoglobin Concent 33.5 % Red Cell Distribution Width 15.0 % Platelet Count 146 TH/MM3 Mean Platelet Volume 6.9 FL Neutrophils (%) (Auto) 73.0 % Lymphocytes (%) (Auto) 11.6 % Monocytes (%) (Auto) 12.4 % Eosinophils (%) (Auto) 2.6 % Basophils (%) (Auto) 0.4 % Neutrophils # (Auto) 3.6 TH/MM3 Lymphocytes # (Auto) 0.6 TH/MM3 Monocytes # (Auto) 0.6 TH/MM3 Eosinophils # (Auto) 0.1 TH/MM3 Basophils # (Auto) 0.0 TH/MM3 CBC Comment DIFF FINAL Differential Comment Prothrombin Time 22.2 SEC Prothromb Time International Ratio 2.2 RATIO Activated Partial Thromboplast Time 30.1 SEC Blood Urea Nitrogen 16 MG/DL Creatinine 1.00 MG/DL Random Glucose 113 MG/DL Total Protein 6.9 GM/DL Albumin 3.8 GM/DL Calcium Level 9.3 MG/DL Alkaline Phosphatase 65 U/L Aspartate Amino Transf (AST/SGOT) 31 U/L Alanine Aminotransferase (ALT/SGPT) 34 U/L Total Bilirubin 1.6 MG/DL Sodium Level 141 MEQ/L Potassium Level 4.0 MEQ/L Chloride Level 108 MEQ/L Carbon Dioxide Level 26.0 MEQ/L Anion Gap 7 MEQ/L Estimat Glomerular Filtration Rate 71 ML/MIN MDM Medical Decision Making Medical Screen Exam Complete: Yes Emergency Medical Condition: Yes Medical Record Reviewed: Yes (CTs and records were reviewed from prior visit) Interpretation(s) Afebrile, mild tachycardia, hypertensive No leukocytosis Electrolytes are reassuring INR: 2.2 Last [address] 02/12/17 0000 Signed Impressions: Service Date/Time: Sunday, February 12, 2017 08:31 - CONCLUSION: 1. Worsening bilateral subdural hygromas with findings of interval subacute hemorrhages bilaterally. 2. In addition, there is an acute component on the left with a resulting 6 mm left to right subfalcine shift. 3. Stable cerebellar atrophy. 4. Results were discussed with Dr. Funes in the ED at the time of dictation. Sergio Boucher MD Differential Diagnosis Subdural hematoma, epidural hematoma, traumatic subarachnoid hemorrhage, ischemic stroke Narrative Course This is an 81-year-old male who presents to the emergency department with gait instability and diplopia and the setting of recent subdural hematoma having recently restarted on his anticoagulation. Stat CT scan was obtained demonstrating increasing size of his subdural hygromas as well an acute component on both sides and some midline shift. He has a normal neurologic exam. I spoke to both Dr. Graff and Dr. Arzate who were in agreement with vitamin K and K Centra. Patient will be admitted to the intensive care unit and Dr. Arzate came to see the patient in the ER. Critical Care Narrative Aggregate critical care time was 45 minutes. Time to perform other separately billable procedures was not included in the critical care time. My time did not include minutes spent treating any other patients simultaneously or on activities that did not directly contribute to the patient's treatment. The services I provided to this patient were to treat and/or prevent clinically significant deterioration that could result in: disability, I provided critical care services requiring my management, as noted below: Chart data review, documentation time, medication orders and management, vital sign assessments/reviewing monitor data, ordering and reviewing lab tests, ordering and interpreting/reviewing x-rays and diagnostic studies, care of the patient and discussion of the patient with the admitting physicians. Physician Communication Physician Communication Discussed with Dr. Arzate Diagnosis Primary Impression: Intracranial hemorrhage Admitting Information Admitting Physician Requests: Admit Kalpana Funes MD Feb 12, 2017 09:44
--- NOTE | 2017-02-12 10:14 | PD.CONS ---
History of Present Illness Service Neurosurgery Consult Requested By ER Reason for Consult Subdural hygroma Primary Care Physician Unknown Diagnoses: History of Present Illness Mr Blackwell is an 81-year-old gentleman known to Dr. Graff. He has a past medical history significant for atrial fibrillation status post pacemaker placement, and anticoagulation with Coumadin. He suffered a traumatic fall in December 2016. At that time he was found to have subdural hematomas that were treated conservatively. In serial CT imaging, the subdural collections have improved. He was reinitiated on Coumadin 6 days ago. Within the past several days, has had increasing headaches and balance difficulties. His family reports that he lists to the right side. He has had double vision. His last dose of Coumadin was less than 24 hours ago. Review of Systems Constitutional: COMPLAINS OF: Dizziness Endocrine: DENIES: Heat/cold intolerance, Polydipsia, Polyuria, Polyphagia Eyes: COMPLAINS OF: Double Vision Ears, nose, mouth, throat: DENIES: Tinnitus, Hearing loss, Vertigo, Nasal discharge, Oral lesions, Throat pain, Hoarseness, Ear Pain, Running Nose, Epistaxis, Sinus Pain, Toothache, Odynophagia Respiratory: DENIES: Apneas, Cough, Snoring, Wheezing, Hemoptysis, Sputum production, Shortness of breath Cardiovascular: DENIES: Chest pain, Palpitations, Syncope, Dyspnea on Exertion , PND, Lower Extremity Edema, Orthopnea, Claudication Gastrointestinal: DENIES: Abdominal pain, Black stools, Bloody stools, Constipation, Diarrhea, Nausea, Vomiting, Difficulty Swallowing, Anorexia Musculoskeletal: DENIES: Joint pain, Muscle aches, Stiffness, Joint Swelling, Back pain, Neck pain Neurologic: COMPLAINS OF: Abnormal gait, Headache Past Family Social History Allergies: Coded Allergies: No Known Allergies (Unverified Allergy, Unknown, 02/12/17) Past Medical History Hx Anticoagulant Therapy: Yes (COUMADIN) Atrial Fibrillation: Yes Cancer: Yes (prostate) Cardiovascular Problems: Yes (A-FIB) High Cholesterol: Yes Diminished Hearing: Yes Endocrine: No Genitourinary: No Hypertension: Yes Immune Disorder: No Implanted Vascular Access Dvce: Yes Musculoskeletal: No Neurologic: Yes (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) Psychiatric: No Reproductive: No Respiratory: No Tetanus Vaccination: < 5 Years Influenza Vaccination: Yes Past Surgical History Appendectomy: Yes Cardiac Surgery: Yes (pacer, carotid artery ) Pacemaker: Yes Other Surgery: Yes (left carotid endarterectomy) Social History Alcohol Use: No Tobacco Use: No Substance Use: No Past Surgical History Appendectomy: Yes Cardiac Surgery: Yes (pacer, carotid artery ) Pacemaker: Yes Other Surgery: Yes (left carotid endarterectomy) Reported Medications Active Reported Aspirin 81 (Aspirin) 81 Mg Tabdr 81 Mg PO DAILY Fish Oil + D3 (Fish Oil-Cholecalciferol) 1,200-1,000 Mg-Unit Cap 1 Cap PO TID Warfarin 2.5 Mg Tab 2.5 Mg PO DAILY Hydrochlorothiazide 12.5 Mg Tab 12.5 Mg PO DAILY Losartan (Losartan Potassium) 50 Mg Tab 50 Mg PO DAILY Alpha Lipoic Acid 200 Mg Cap 200 Mg PO DAILY Crestor (Rosuvastatin Calcium) 5 Mg Tab 5 Mg PO DAILY Probiotic (Lactobacillus Acidophilus) 1 Cap Cap 1 Cap PO DAILY Family History N/A Social History Alcohol Use: No Tobacco Use: No Substance Use: No Physical Exam Vital Signs Vital Signs Date Time Temp Pulse Resp B/P (MAP) Pulse Ox O2 Delivery O2 Flow Rate FiO2 02/12/17 09:10 97.8 94 16 155/72 (99) 97 Room Air 02/12/17 07:57 97.8 91 20 171/97 (121) 97 Room Air Physical Exam GENERAL: This is a well-nourished, well-developed patient, in no apparent distress. SKIN: No rashes, ecchymoses or lesions. Cool and dry. HEAD: Atraumatic. Normocephalic. No temporal or scalp tenderness. EYES: Pupils equal round and reactive. Extraocular motions intact. No scleral icterus. No injection or drainage. ENT: Nose without bleeding, purulent drainage or septal hematoma. Throat without erythema, tonsillar hypertrophy or exudate. Uvula midline. Airway patent. NECK: Trachea midline. No JVD or lymphadenopathy. Supple, nontender, no meningeal signs. CARDIOVASCULAR: Regular rate and rhythm without murmurs RESPIRATORY: Clear to auscultation. Breath sounds equal bilaterally. No wheezes , rales, or rhonchi. GASTROINTESTINAL: Abdomen soft, non-tender, nondistended. No hepato-splenomegaly , or palpable masses. No guarding. MUSCULOSKELETAL: Extremities without clubbing, cyanosis, or edema. No joint tenderness, effusion, or edema noted. No calf tenderness. Negative Homans sign bilaterally. NEUROLOGICAL: Awake and alert. Cranial nerves II through XII intact. Motor strength testing is intact with 5/5 to all muscle groups tested. Sensation is grossly intact to light touch throughout. Deep tendon reflexes are 2+ at the biceps, triceps, patella. No clonus at the ankles. Positive pronator drift on the right. Speech is clear, appropriate, and non-aphasic. Laboratory Laboratory Tests Test 02/12/17 08:35 White Blood Count 5.0 Red Blood Count 4.89 Hemoglobin 13.3 Hematocrit 39.7 Mean Corpuscular Volume 81.1 Mean Corpuscular Hemoglobin 27.2 Mean Corpuscular Hemoglobin Concent 33.5 Red Cell Distribution Width 15.0 Platelet Count 146 Mean Platelet Volume 6.9 Neutrophils (%) (Auto) 73.0 Lymphocytes (%) (Auto) 11.6 Monocytes (%) (Auto) 12.4 Eosinophils (%) (Auto) 2.6 Basophils (%) (Auto) 0.4 Neutrophils # (Auto) 3.6 Lymphocytes # (Auto) 0.6 Monocytes # (Auto) 0.6 Eosinophils # (Auto) 0.1 Basophils # (Auto) 0.0 CBC Comment DIFF FINAL Differential Comment Prothrombin Time 22.2 Prothromb Time International Ratio 2.2 Activated Partial Thromboplast Time 30.1 Blood Urea Nitrogen 16 Creatinine 1.00 Random Glucose 113 Total Protein 6.9 Albumin 3.8 Calcium Level 9.3 Alkaline Phosphatase 65 Aspartate Amino Transf (AST/SGOT) 31 Alanine Aminotransferase (ALT/SGPT) 34 Total Bilirubin 1.6 Sodium Level 141 Potassium Level 4.0 Chloride Level 108 Carbon Dioxide Level 26.0 Anion Gap 7 Estimat Glomerular Filtration Rate 71 Result Diagram: 02/12/17 0835 02/12/17 0835 Imaging Last [address] 02/12/17 0000 Signed Impressions: Service Date/Time: Sunday, February 12, 2017 08:31 - CONCLUSION: 1. Worsening bilateral subdural hygromas with findings of interval subacute hemorrhages bilaterally. 2. In addition, there is an acute component on the left with a resulting 6 mm left to right subfalcine shift. 3. Stable cerebellar atrophy. 4. Results were discussed with Dr. Funes in the ED at the time of dictation. Sergio Boucher MD Assessment and Plan Problem List: (1) Atrial fibrillation ICD Codes: I48.91 - Unspecified atrial fibrillation Status: Acute Plan: Mr Blackwell is an 81-year-old gentleman with a past medical history significant for atrial fibrillation on Coumadin anticoagulation, and previous trauma with bilateral subdural hematomas. He now presents with increasing headache, and balance difficulties. He has a CT that shows bilateral subdural fluid collections. There appears to be a chronic subdural hematoma on the right side and a subacute-chronic subdural hematoma on the left side. There is significant mass effect on the underlying brain with a [id number] midline shift. Based on the progression and symptomatic nature of the subdural hematoma , he would benefit from bilateral bur hole evacuation of the subdural hematomas. His INR is 2.2. e has been given vitamin K and K Centra for reversal of his Coumadin. Once his coags have corrected, we will plan for a bilateral bur hole evacuation of the subdural hematomas. Hypertension/Atrial fibrillation: Discontinue Coumadin. Resume beta aleshia Pulm: Good O2 saturation GI/Nutrition: Patient has been NPO for the past 12 hours. Continue NPO for surgery : Good urine output F/E/N: IVF while NPO ID: [id number]. Preoperative Ancef for planned surgery DVT Prophylaxis: SCD. Chemical prophylaxis contraindicated in the setting of hemorrhage and planned surgery Dispo: Admit to ICU. (2) Intracranial hemorrhage ICD Codes: I62.9 - Nontraumatic intracranial hemorrhage, unspecified Status: Acute Mihir Arzate MD Feb 12, 2017 10:14
[2017-02-12 11:09] LABS: APTT (PATIENT) 24.3 SEC (24.3-30.1); INTERNATIONAL NORMALIZED RATIO 1.3 RATIO; PROTHROMBIN TIME - PATIENT 12.7 SEC (9.8-11.6)
[2017-02-12] MEDS ORDERED: PHENYLEPHRINE HCL 10 MG/ML VIAL IV ONE (12:00)
[2017-02-12] MEDS ORDERED: PROPOFOL 200 MG/20 ML AMP IV ONE (12:00)
[2017-02-12] MEDS ORDERED: GLYCOPYRROLATE 1 MG/5 ML SYRINGE IV PUSH ONE (12:00)
[2017-02-12] MEDS ORDERED: METOPROLOL TARTRATE 5 MG/5 ML VIAL IV ONE (12:00)
[2017-02-12] MEDS ORDERED: PHENYLEPH/NS 1000 MCG/10 ML SYR IV ONE (12:00)
[2017-02-12] MEDS ORDERED: ROCURONIUM INJ 50 MG/5 ML SYRINGE IV PUSH ONE (12:00)
[2017-02-12] MEDS ORDERED: LIDOCAINE HCL 1% PF 5 ML SYRINGE OTHER ONE (12:00)
[2017-02-12] MEDS ORDERED: ONDANSETRON HCL 4 MG/2 ML VIAL IV ONE (12:00)
[2017-02-12] MEDS ORDERED: LABETALOL HCL 100 MG/20 ML VIAL IV ONE (12:00)
[2017-02-12] MEDS ORDERED: NEOSTIGMINE 5 MG/5 ML SYRINGE IV PUSH ONE (12:00)
[2017-02-12] MEDS ORDERED: DEXAMETHASONE SOD PHOS 4 MG/ML VIAL IV ONE (12:00)
--- NOTE | 2017-02-12 13:06 | HHI.HP ---
HPI Service Critical Care Medicine Primary Care Physician Unknown Admission Diagnosis intracranial hemorrhage Diagnosis: (1) Subacute on chronic subdural hematoma on the left side Diagnosis: Principal (2) Midline shift of brain due to hematoma Diagnosis: Principal (3) Chronic subdural hematoma on the left side Diagnosis: Principal (4) Atrial fibrillation Diagnosis: Secondary (5) Intracranial hemorrhage Diagnosis: Secondary (6) Hypertension Diagnosis: Secondary (7) Hyperlipidemia Diagnosis: Secondary Chief Complaint: Acute on Chronic subdural hematoma with midline shift Travel History International Travel<30 Days: No Contact w/Intl Traveler <30 Da: No Traveled to Known Affected Are: No History of Present Illness Patient is an 81-year-old male with past medical history significant for traumatic subdural hemorrhage, bilateral in December [address] Graff (also was following with Dr. Graff as OP), hypertension, chronic atrial fibrillation who presented to the emergency department with approximately one-week history of headache and feeling that he is falling to the right side, and also double vision. He gives history that he was started on Coumadin [address] scan of head was stable and he was cleared by neurosurgery. Stat CT of the head today showed worsening bilateral subdural hygromas with subacute hemorrhages bilaterally and acute left subdural component with 6 mm left to right subfalcine shift. Neurosurgery Dr. Arzate was immediately contacted who evaluated the patient. INR was 2.2 on arrival. Patient received K Centra and vitamin K emergently I evaluated the patient in the emergency department. He appears in mild-to- moderate distress due to headache. After reversal of his INR is 1.3. Because of the midline shift have ordered 25 g of IV mannitol 1. I discussed with Dr. Arzate. Plan is for OR late evening for drainage of the left subdural collection which is causing MLS. Tight blood pressure control with IV hydralazine when necessary and nicardipine infusion if necessary Review of Systems ROS Limitations: Other (as per HPI) Past Family Social History Allergies: Coded Allergies: No Known Allergies (Unverified Allergy, Unknown, 02/12/17) Past Medical History Atrial fibrillation on chronic Coumadin Acute left more than right bilateral subdural hemorrhage 01/01/17 after fall Hypertension Dyslipidemia Past Surgical History Left carotid endarterectomy Pacemaker placement Appendectomy Reported Medications Aspirin 81 (Aspirin) 81 Mg Tabdr 81 Mg PO DAILY Fish Oil + D3 (Fish Oil-Cholecalciferol) 1,200-1,000 Mg-Unit Cap 1 Cap PO TID Warfarin 2.5 Mg Tab 2.5 Mg PO DAILY Hydrochlorothiazide 12.5 Mg Tab 12.5 Mg PO DAILY Losartan (Losartan Potassium) 50 Mg Tab 50 Mg PO DAILY Alpha Lipoic Acid 200 Mg Cap 200 Mg PO DAILY Crestor (Rosuvastatin Calcium) 5 Mg Tab 5 Mg PO DAILY Probiotic (Lactobacillus Acidophilus) 1 Cap Cap 1 Cap PO DAILY Active Ordered Medications Reviewed Family History Not contributing to this admission Social History No alcohol or tobacco use Physical Exam Vital Signs Vital Signs Date Time Temp Pulse Resp B/P (MAP) Pulse Ox O2 Delivery O2 Flow Rate FiO2 02/12/17 12:06 97.8 72 16 140/83 (102) 98 02/12/17 11:30 78 16 142/89 (106) 98 02/12/17 10:39 97.9 81 16 135/89 (104) 96 Room Air 02/12/17 09:10 97.8 94 16 155/72 (99) 97 Room Air 02/12/17 07:57 97.8 91 20 171/97 (121) 97 Room Air Physical Exam GENERAL: Elderly gentleman in mild to moderate distress from headache SKIN: Warm and dry. HEAD: Atraumatic. Normocephalic. EYES: Pupils equal and round, reactive. No injection or drainage. ENT: Moist mucous membranes. Airway patent NECK: Trachea midline. CARDIOVASCULAR: Atrial fibrillation on the monitor. No murmur appreciated. RESPIRATORY: Clear to auscultation. Breath sounds equal bilaterally. GASTROINTESTINAL: Abdomen soft, non-tender, nondistended. MUSCULOSKELETAL: No obvious deformities. NEUROLOGICAL: Awake and alert. No obvious cranial nerve deficits. Visual dickens intact. No deficits in muscle strength or sensation. Speech normal Laboratory Laboratory Tests Test 02/12/17 08:35 02/12/17 10:45 White Blood Count 5.0 Red Blood Count 4.89 Hemoglobin 13.3 Hematocrit 39.7 Mean Corpuscular Volume 81.1 Mean Corpuscular Hemoglobin 27.2 Mean Corpuscular Hemoglobin Concent 33.5 Red Cell Distribution Width 15.0 Platelet Count 146 Mean Platelet Volume 6.9 Neutrophils (%) (Auto) 73.0 Lymphocytes (%) (Auto) 11.6 Monocytes (%) (Auto) 12.4 Eosinophils (%) (Auto) 2.6 Basophils (%) (Auto) 0.4 Neutrophils # (Auto) 3.6 Lymphocytes # (Auto) 0.6 Monocytes # (Auto) 0.6 Eosinophils # (Auto) 0.1 Basophils # (Auto) 0.0 CBC Comment DIFF FINAL Differential Comment Prothrombin Time 22.2 12.7 Prothromb Time International Ratio 2.2 1.3 Activated Partial Thromboplast Time 30.1 24.3 Blood Urea Nitrogen 16 Creatinine 1.00 Random Glucose 113 Total Protein 6.9 Albumin 3.8 Calcium Level 9.3 Alkaline Phosphatase 65 Aspartate Amino Transf (AST/SGOT) 31 Alanine Aminotransferase (ALT/SGPT) 34 Total Bilirubin 1.6 Sodium Level 141 Potassium Level 4.0 Chloride Level 108 Carbon Dioxide Level 26.0 Anion Gap 7 Estimat Glomerular Filtration Rate 71 Result Diagram: 02/12/1783402/12/[address] of the brain: Worsening bilateral subdural hygromas with subacute hemorrhages bilaterally. Acute component on the left with 6 mm left to right subfalcine shift. Septic Shock Reassessment Septic shock perfusion: reassessment completed Caprini VTE Risk Assessment Caprini VTE Risk Assessment: Mod/High Risk (score >= 2) VTE Pharm Contraindication: Hemorrhage Caprini Risk Assessment Model Point Value = 1 Point Value = 2 Point Value = 3 Point Value = 5 Age 41-60 Minor surgery BMI > 25 kg/m2 Swollen legs Varicose veins or History of unexplained or recurrent spontaneous Oral contraceptives or hormone replacement Sepsis (< 1 month) Serious lung disease, including pneumonia (< 1 month) Abnormal pulmonary function Acute myocardial infarction Congestive heart failure (< 1 month) History of inflammatory bowel disease Medical patient at bed rest Age 61-74 Arthroscopic surgery Major open surgery (> 45 min) Laparoscopic surgery (> 45 min) Malignancy Confined to bed (> 72 hours) Immobilizing plaster cast Central venous access Age >= 75 History of VTE Family history of VTE Factor V Leiden Prothrombin [id number] Lupus anticoagulant Anticardiolipin antibodies Elevated serum homocysteine Heparin-induced thrombocytopenia Other congenital or acquired thrombophilia Stroke (< 1 month) Elective arthroplasty Hip, pelvis, or leg fracture Acute spinal cord injury (< 1 month) Prophylaxis Regimen Total Risk Factor Score Risk Level Prophylaxis Regimen 0-1 Low Early ambulation 2 Moderate Order ONE of the following: *Sequential Compression Device (SCD) *Heparin 5000 units SQ BID 3-4 Higher Order ONE of the following medications: *Heparin 5000 units SQ TID *Enoxaparin/Lovenox 40 mg SQ daily (WT < 150 kg, CrCl > 30 mL/min) *Enoxaparin/Lovenox 30 mg SQ daily (WT < 150 kg, CrCl > 10-29 mL/min) *Enoxaparin/Lovenox 30 mg SQ BID (WT < 150 kg, CrCl > 30 mL/min) AND/OR *Sequential Compression Device (SCD) 5 or more Highest Order ONE of the following medications: *Heparin 5000 units SQ TID (Preferred with Epidurals) *Enoxaparin/Lovenox 40 mg SQ daily (WT < 150 kg, CrCl > 30 mL/min) *Enoxaparin/Lovenox 30 mg SQ daily (WT < 150 kg, CrCl > 10-29 mL/min) *Enoxaparin/Lovenox 30 mg SQ BID (WT < 150 kg, CrCl > 30 mL/min) AND *Sequential Compression Device (SCD) Assessment and Plan Assessment and Plan NEURO: s/p Fall Acute on chronic left more than right bilateral subdural hematoma with 6 mm midline shift TBI with bilateral subdural hemorrhage 01/01/[address] Arzate, plan for evacuation of left subdural hematoma later tonight INR reversed with KCentra and Vit K Mannitol 25 mg IV 1 given Keep Na 145-150, started on normal saline No indication for seizure prophylaxis at this time CT head in 24 hours RESP: - Aggressive pulmonary toilet - DuoNeb every 6 hours when necessary CV: Atrial fibrillation on chronic Coumadin Status post pacemaker placement Hypertension - Coumadin stopped and INR reversed as above - Normal saline IV fluids 125 ml per hour - Cardizem infusion and as needed hydralazine to keep systolic blood pressure less than 150 GI: - NPO, IV famotidine - Bowel regimen : - Monitor renal function closely. ID: - Monitor closely for infection, perioperative antibiotics per Dr. Arzate HEME: - Monitor CBC, CMP, INR ENDO: - Electrolyte replacement per protocol PROPH: - Bilateral lower extremity SCDs/TOMÁS. IV famotidine LINES: - Utilize peripheral IV CC time 45 min excluding procedures Code Status Full Discussed Condition With Dr. Arzate and the patient Tati Foreman MD Feb 12, 2017 13:06
[2017-02-12] MEDS: SODIUM CHLOR 0.9% 1000 ML INJ 1,000 ML IV SCH ×2 (13:14→21:14)
[2017-02-12] MEDS ORDERED: BISACODYL 10 MG SUPP RECTAL PRN (13:15)
[2017-02-12] MEDS ORDERED: RESP: ALBUTEROL 2.5 MG/IPRATROPIUM 0.5 MG NEB (PRN) INH (13:15)
[2017-02-12] MEDS ORDERED: MISCELLANEOUS NURSING INFORMATION XX SCH (13:15)
[2017-02-12] MEDS ORDERED: MANNITOL 12.5 GM/50 ML VIAL IV ONE (13:15)
[2017-02-12] MEDS ORDERED: SODIUM CHLORIDE 0.9% FLUSH 10 ML FLUSH IV FLUSH PRN (13:15)
[2017-02-12] MEDS ORDERED: MAGNESIUM HYDROXIDE SUSP 30 ML CUP PO PRN (13:15)
[2017-02-12] MEDS ORDERED: SENNOSIDES 8.6 MG TAB PO PRN (13:15)
[2017-02-12] MEDS ORDERED: CHLORHEXIDINE GLUCONATE 2 % 1 PACK (2 CLOTHS) TOP PRN (13:15)
[2017-02-12] MEDS ORDERED: LACTULOSE SYRUP 20 GM/30 ML CUP PO PRN (13:15)
[2017-02-12] MEDS ORDERED: niCARdipine INJ 25 MG in SODIUM CHLOR 0.9% 250 ML INJ 240 ML IV PRN (13:30)
[2017-02-12] MEDS ORDERED: POTASSIUM PHOSPHATE MONOBASIC 500 MG TAB PO PRN (14:30)
[2017-02-12] MEDS ORDERED: MAGNESIUM OXIDE 400 MG TAB PO PRN (14:30)
[2017-02-12] MEDS ORDERED: SODIUM PHOSPHATE INJ 30 MMOL in SODIUM CHLOR 0.9% 250 ML INJ 240 ML IV PRN (14:30)
[2017-02-12] MEDS ORDERED: POTASSIUM CHLOR 20 MEQ PREMIX 100 ML IV PRN ×2 (14:30)
[2017-02-12] MEDS ORDERED: MAGNESIUM SULFATE INJ 4 GM in SODIUM CHLORIDE 0.9% INJ 92 ML IV PRN (14:30)
[2017-02-12] MEDS ORDERED: POTASSIUM PHOSPHATE MONOBASIC 500 MG TAB PO/TUBE PRN (14:30)
[2017-02-12] MEDS ORDERED: POTASSIUM CHLORIDE 25 MEQ EFFERVESCENT TAB PO PRN (14:30)
[2017-02-12] MEDS ORDERED: POTASSIUM CHLOR 40 MEQ PREMIX 100 ML IV PRN ×2 (14:30)
[2017-02-12] MEDS ORDERED: MAGNESIUM SULFATE INJ 2 GM in SODIUM CHLORIDE 0.9% INJ 96 ML IV PRN (14:30)
[2017-02-12] MEDS ORDERED: POTASSIUM PHOSPHATE INJ 30 MMOL in SODIUM CHLOR 0.9% 250 ML INJ 250 ML IV PRN (14:30)
[2017-02-12] MEDS ORDERED: GENTAMICIN SULFATE 80 MG/2 ML VIAL ONE (16:51)
[2017-02-12] MEDS ORDERED: GELFOAM SIZE 100 ONE (16:51)
[2017-02-12] MEDS ORDERED: ceFAZolin INJ 1,000 MG VIAL ONE (16:51)
[2017-02-12] MEDS ORDERED: THROMBIN (TOPICAL) 5,000 UNIT VIAL ONE (16:51)
[2017-02-12] MEDS ORDERED: BUPIVACAINE/EPINEPHRINE 0.5% PF 30 ML VIAL ONE (17:49)
[2017-02-12] MEDS: hydrALAZINE HCL 20 MG/ML VIAL IV PUSH PRN (18:02)
[2017-02-12 19:25] LABS: INTERNATIONAL NORMALIZED RATIO 1.3 RATIO; PROTHROMBIN TIME - PATIENT 12.8 SEC (9.8-11.6)
[2017-02-12] MEDS ORDERED: levETIRAcetam 500 MG/5 ML VIAL IV ONE (19:53)
[2017-02-12] MEDS: DOCUSATE SODIUM 50 MG/SENNA 8.6 MG TAB PO SCH (21:00)
[2017-02-12] MEDS ORDERED: DO NOT ADM ANY ANTICOAGULANT DRUGS PRN (21:00)
[2017-02-12] MEDS ORDERED: *ONDANSETRON 4 MG VIAL PERIprocedural Use ONLY ONE (21:43)
[2017-02-12] MEDS ORDERED: PROMETHAZINE INJ 25 MG/ML VIAL ONE (22:21)
--- NOTE | 2017-02-12 22:39 | PD.OP ---
Operative Report Date of Surgery: Feb 12, 2017 Preoperative Diagnosis: (1) Subacute on chronic subdural hematoma on the left side (2) Intracranial hemorrhage Postoperative Diagnosis: (1) Subacute on chronic subdural hematoma on the left side (2) Midline shift of brain due to hematoma Procedure: Bilateral bur hole for evacuation of subdural hematoma Anesthesia: THANIA Surgeon: Mihir Arzate Marketing Officer(s): None Resident Surgeon: None Operation and Findings: Mr Blackwell is an 81-year-old gentleman with atrial fibrillation on anticoagulation. Approximately 2 months ago he presented with a fall causing bilateral subdural hematomas. This was managed conservatively. As the hematomas resolved, his crit and was reinitiated. After possibly 6 days on anticoagulation, the patient developed increasing headache, and balance difficulties. He presented to the emergency department where a CT was performed which showed evidence of I lateral subdural hematomas. There is a chronic component on the right side and a large subacute/chronic component on the left side with 0.6 cm midline shift. As the patient is a symptomatic, we discussed the risks, including but not limited to bleeding, infection, recurrence of subdural hematoma, need for additional surgery, weakness, paralysis, stroke, NV, coma, or . The patient expresses understanding and wishes to proceed with the above-stated procedure. After obtaining informed consent the patient was taken to the operating room and had the induction of general oral endotracheal anesthesia. Placed supine on the operating table with his head supported in a horseshoe headholder. The arms were wrapped and tucked and all pressure points were appropriately padded. We planned 2 incisions measuring approximately 3.5 cm in the parasagittal plane the line. The head was prepped and draped in the usual sterile fashion. The patient was given a dose of perioperative Ancef. The incisions were made as planned. Dissection was sharply down to the calvarium. A high-speed drill was used to perform bur holes bilaterally. The dura was opened sharply. Immediately we had an egress of motor oil appearing fluid bilaterally. After the initial evacuation of this darkened fluid, we had egressed of darkened red blood. This appeared to be the subacute component. We irrigated with copious volumes of normal saline until the irrigant started clearing up. Then advanced a red rubber space. This was then irrigated into the irrigant was clear. We placed a round Nestor-Romero drain into the subdural space and brought of this the skin through a separate stab incision. The wounds were closed using 2-0 Vicryl sutures in an inverted interrupted fashion for the galeal and dermal layer. The skin was closed with chelsey. Dressings were applied. All sponge, needles, and instrument counts were reported correct 2 at the end of the procedure. There was no intraoperative complications or transfusions. Estimated blood loss was 50 mL. The patient was awakened from anesthesia and taken to the recovery room in stable condition. I was present for the entire procedure. Mihir Arzate MD Feb 12, 2017 22:39
[2017-02-12] MEDS: SODIUM CHLORIDE 0.9% FLUSH 10 ML FLUSH IV FLUSH SCH (22:52)
[2017-02-12] MEDS: FAMOTIDINE 20 MG/2 ML VIAL IV PUSH SCH (23:41)
[2017-02-12] MEDS ORDERED: ONDANSETRON HCL 4 MG/2 ML VIAL IV PUSH PRN ×2 (23:45)
[2017-02-13] VITALS (14 sets, daily range): BP systolic 126–147; BP diastolic 61–82; PULSE 76–136; RESP 15–34; TEMP 97.3–98.5; O2SAT 93–99
[2017-02-13] MEDS: ceFAZolin 1,000 MG/NS 100 ML IV SCH ×6 (00:26→15:50)
[2017-02-13] MEDS: levETIRAcetam INJ 100 ML IV SCH ×2 (00:27→12:11)
[2017-02-13] MEDS: levETIRAcetam 500 MG TAB PO SCH ×2 (00:27→12:11)
[2017-02-13 03:50] LABS: AUTOMATED NEUTROPHIL # 5.8 TH/MM3 (1.8-7.7); BASOPHIL % 0.1 % (0.0-2.0); EOSINOPHIL % 0.1 % (0.0-4.0); HEMATOCRIT 35.1 % (39.0-51.0); HEMO FLAGS DIFF FINAL; LYMPH % 4.1 % (9.0-44.0); LYMPHOCYTE # 0.3 TH/MM3 (1.0-4.8); MEAN CELL VOLUME 80.7 FL (80.0-100.0); MEAN CORPUSCULAR HEMOGLOBIN 27.7 PG (27.0-34.0); MEAN CORPUSCULAR HGB CONC 34.3 % (32.0-36.0); MONO % 2.9 % (0.0-8.0); NEUT % 92.8 % (16.0-70.0); PLATELET COUNT 127 TH/MM3 (150-450); RED BLOOD COUNT 4.35 MIL/MM3 (4.50-5.90); RED CELL DISTRIBUTION WIDTH 14.9 % (11.6-17.2); WHITE BLOOD COUNT 6.2 TH/MM3 (4.0-11.0)
[2017-02-13 03:59] LABS: INTERNATIONAL NORMALIZED RATIO 1.3 RATIO; PROTHROMBIN TIME - PATIENT 12.8 SEC (9.8-11.6)
[2017-02-13] MEDS: CHLORHEXIDINE GLUCONATE 2 % 1 PACK (2 CLOTHS) TOP SCH (04:00)
[2017-02-13 04:15] LABS: ANION GAP 13 MEQ/L (5-15); AST (GOT) 26 U/L (15-37); BICARBONATE 22.6 MEQ/L (21.0-32.0); BLOOD UREA NITROGEN 16 MG/DL (7-18); CHLORIDE 108 MEQ/L (98-107); GLOMERULAR FILTRATION RATE 71 ML/MIN (>89); MAGNESIUM 1.8 MG/DL (1.5-2.5); POTASSIUM 3.7 MEQ/L (3.5-5.1); SODIUM (NA) 144 MEQ/L (136-145)
[2017-02-13 04:19] LABS: ALKALINE PHOSPHATASE 57 U/L (45-117); ALT (GPT) 32 U/L (12-78); TOTAL BILIRUBIN ADULT 1.7 MG/DL (0.2-1.0)
--- NOTE | 2017-02-13 05:33 | RADRPT ---
EXAM DATE/TIME: 02/13/2017 04:19 [facility] COMPARISON: CT BRAIN W/O CONTRAST, February 12, 2017, 8:31. INDICATIONS : Follow up subdural hematoma; post drain placement. RADIATION DOSE: 56.35 CTDIvol (mGy) MEDICAL HISTORY : Non-responsive. SURGICAL HISTORY : Non-responsive. ENCOUNTER: Subsequent ACUITY: 1 day PAIN SCALE: Non-responsive LOCATION: cranial TECHNIQUE: Multiple contiguous axial images were obtained of the head. Using automated exposure control and adj ustment of the mA and/or kV according to patient size, radiation dose was kept as low as reasonably a chievable to obtain optimal diagnostic quality images. DICOM format image data is available electro nically for review and comparison. FINDINGS: Interval bilateral subdural drain placement from a frontal approach bilaterally. Skin chelsey and bur r hole's are identified. The tip of the left drain terminates posteriorly in the left occipital regio n and on the right in the occipital region. The subdural collections are mostly low in attenuation an d there is now identified pneumocephalus in the frontal regions and in the right sylvian fissure. The re is a small amount of hyperdense hemorrhage seen posteriorly in the left subdural collection. Maxim al transverse width on the left 2.7 cm, on the right slightly decreased to 1.1 cm posteriorly. There is a small parenchymal hemorrhage in the left frontal centrum semiovale he which is new and measures 6 mm on image 23. There is left to right shift identified of 5.9 mm. CONCLUSION: Slight increase transverse width of left subdural hematoma with decrease in width of the right subdur al hematoma status post drain placement. There is stable shift from left to right and interval develo pment of a moderate degree of pneumocephalus greatest anteriorly. In addition a small parenchymal ble ed is seen in the left frontal lobe. Foreign Thomas MD on February 13, 2017 at 5:29 Board Certified Radiologist. This report was verified electronically.
[2017-02-13] MEDS: SODIUM CHLOR 0.9% 1000 ML INJ 1,000 ML IV SCH ×2 (05:35→15:37)
[2017-02-13] MEDS: LOSARTAN 50 MG TAB PO SCH (08:04)
[2017-02-13] MEDS: SODIUM CHLORIDE 0.9% FLUSH 10 ML FLUSH IV FLUSH SCH ×2 (08:04→21:25)
[2017-02-13] MEDS: FAMOTIDINE 20 MG/2 ML VIAL IV PUSH SCH ×2 (08:04→21:25)
[2017-02-13] MEDS: DOCUSATE SODIUM 50 MG/SENNA 8.6 MG TAB PO SCH ×2 (08:05→21:25)
[2017-02-13] MEDS: LABETALOL HCL 100 MG/20 ML VIAL IV PRN ×2 (08:05→20:34)
--- NOTE | 2017-02-13 09:46 | HHI.CCPN ---
Subjective Remarks/Hospital Course Hospital Course: Patient is an 81-year-old male with past medical history significant for traumatic subdural hemorrhage, bilateral in December [address] Graff (also was following with Dr. Graff as OP), hypertension, chronic atrial fibrillation who presented to the emergency department with approximately one-week history of headache and feeling that he is falling to the right side, and also double vision. He gives history that he was started on Coumadin [address] scan of head was stable and he was cleared by neurosurgery. Stat CT of the head today showed worsening bilateral subdural hygromas with subacute hemorrhages bilaterally and acute left subdural component with 6 mm left to right subfalcine shift. Neurosurgery Dr. Arzate was immediately contacted who evaluated the patient. INR was 2.2 on arrival. Patient received K Centra and vitamin K emergently I evaluated the patient in the emergency department. He appears in mild-to- moderate distress due to headache. After reversal of his INR is 1.3. Because of the midline shift have ordered 25 g of IV mannitol 1. I discussed with Dr. Arzate. Plan is for OR late evening for drainage of the left subdural collection which is causing MLS. Tight blood pressure control with IV hydralazine when necessary and nicardipine infusion if necessary Subjective: 02/13: more delirious overnight. taken for bjorn hole drainage. still CAM+. restrained this AM. pneumocephalus this morning which is worse. patient denies complaints. Objective Vital Signs Date Time Temp Pulse Resp B/P (MAP) Pulse Ox O2 Delivery O2 Flow Rate FiO2 02/13/17 08:56 93 21 02/13/17 07:00 Nasal Cannula 2.00 02/13/17 06:00 99 02/13/17 04:00 97.3 34 126/61 (82) Intake and Output 02/13/17 02/13/17 02/14/17 08:00 16:00 00:00 Intake Total 0 ml Output Total 200 ml Balance -200 ml Result Diagram: 02/13/1733502/13/[address] of the brain: Worsening bilateral subdural hygromas with subacute hemorrhages bilaterally. Acute component on the left with 6 mm left to right subfalcine shift. Objective Remarks GENERAL: Elderly gentleman slightly confused. sitting in bed. SKIN: Warm and dry. HEAD: Atraumatic. Normocephalic. EYES: Pupils equal and round, reactive. No injection or drainage. ENT: Moist mucous membranes. Airway patent NECK: Trachea midline. CARDIOVASCULAR: Atrial fibrillation on the monitor. No murmur appreciated. HR 130s RESPIRATORY: unlabored. equal chest rise. NC o2. GASTROINTESTINAL: Abdomen soft, non-tender, nondistended. MUSCULOSKELETAL: No obvious deformities. NEUROLOGICAL: Awake and alert. No obvious cranial nerve deficits. No deficits in muscle strength or sensation. Speech normal. slightly confused. A/P Assessment and Plan Assessment: 81yM with bilateral hygromas with worsening midline shift and new acute left-sided SDH taken to OR 02/12 for left bjorn hole decompression. slightly delirious this AM. will continue to monitor in ICU. swallow eval and slowly advance diet. add metoprolol for improved HR control for afib. NEURO: s/p Fall Acute on chronic left more than right bilateral subdural hematoma with 6 mm midline shift TBI with bilateral subdural hemorrhage 01/01/2017 Agitated Delirium s/p left bjorn hole 02/12. INR reversed with KCentra and Vit K Keep Na 145-150, started on normal saline keppra PO repeat head CT with pneumocephalus, improving hygroma. avoid long-acting sedating meds restrained for patient safety. may need small dose prn haldol. RESP: - Aggressive pulmonary toilet - DuoNeb every 6 hours when necessary CV: Atrial fibrillation on chronic Coumadin Status post pacemaker placement Hypertension - Coumadin stopped and INR reversed as above - decrease NS to 75 cc/hr. - start metorpolol 37.5 mg po q6h for improved rate control. GI: Dysphagia - swallow eval and slowly advance diet. -IV famotidine - Bowel regimen : - Monitor renal function closely. - no indication for grayson at this time. ID: - Monitor closely for infection, perioperative antibiotics per Dr. Arzate HEME: - Monitor CBC, CMP, INR ENDO: - Electrolyte replacement per protocol PROPH: - Bilateral lower extremity SCDs/TOMÁS. IV famotidine. hold pharmacologic dvt prophylaxis given head bleed. LINES: - Utilize peripheral IV Dispo: remain in ICU. Edd Layne MD Feb 13, 2017 09:46
[2017-02-13] MEDS ORDERED: PILL SPLITTER OTHER PRN (10:00)
[2017-02-13] MEDS: ATORVASTATIN 10 MG TAB PO SCH (10:00)
[2017-02-13] MEDS: METOPROLOL TARTRATE 25 MG TAB PO SCH ×3 (11:03→21:25)
--- NOTE | 2017-02-13 11:05 | HHI.NSPN ---
History Interval History Mr Blackwell is an 81-year-old gentleman known to Dr. Graff. He has a past medical history significant for atrial fibrillation status post pacemaker placement, and anticoagulation with Coumadin. He suffered a traumatic fall in December 2016. At that time he was found to have subdural hematomas that were treated conservatively. In serial CT imaging, the subdural collections have improved. He was reinitiated on Coumadin 6 days ago. Within the past several days, has had increasing headaches and balance difficulties. His family reports that he lists to the right side. He has had double vision. His last dose of Coumadin was less than 24 hours ago. 02/13 patient underwent a bilateral bur hole evacuation of chronic-subacute subdural hematomas. He had mild nausea overnight that is well-controlled. He reports minimal headaches at this time Exam Results Vital Signs Date Time Temp Pulse Resp B/P (MAP) Pulse Ox O2 Delivery O2 Flow Rate FiO2 02/13/17 08:56 93 21 02/13/17 07:00 Nasal Cannula 2.00 02/13/17 06:00 99 02/13/17 04:00 97.3 34 126/61 (82) Intake and Output 02/13/17 02/13/17 02/14/17 08:00 16:00 00:00 Intake Total 0 ml Output Total 200 ml Balance -200 ml Physical Examination GENERAL: This is a well-nourished, well-developed patient, in no apparent distress. SKIN: No rashes, ecchymoses or lesions. Cool and dry. HEAD: Atraumatic. Normocephalic. Dressings are in place with bilateral KENIA drains. EYES: Pupils equal round and reactive. Extraocular motions intact. No scleral icterus. No injection or drainage. ENT: Nose without bleeding, purulent drainage or septal hematoma. Throat without erythema, tonsillar hypertrophy or exudate. Uvula midline. Airway patent. NECK: Trachea midline. No JVD or lymphadenopathy. Supple, nontender, no meningeal signs. CARDIOVASCULAR: Regular rate and rhythm without murmurs RESPIRATORY: Clear to auscultation. Breath sounds equal bilaterally. No wheezes , rales, or rhonchi. GASTROINTESTINAL: Abdomen soft, non-tender, nondistended. No hepato-splenomegaly , or palpable masses. No guarding. MUSCULOSKELETAL: Extremities without clubbing, cyanosis, or edema. No joint tenderness, effusion, or edema noted. No calf tenderness. Negative Homans sign bilaterally. NEUROLOGICAL: Awake and alert. Cranial nerves II through XII intact. Motor strength testing is intact with 5/5 to all muscle groups tested. Sensation is grossly intact to light touch throughout. Deep tendon reflexes are 2+ at the biceps, triceps, patella. No clonus at the ankles. No pronator drift Speech is clear, appropriate, and non-aphasic. Lab, Micro, Other Results Allergies Coded Allergies Type Severity Reaction Last Updated Verified No Known Allergies Allergy Unknown 02/12/17 No Recent Impressions Head CT 02/13/17 0000 Signed Impressions: Service Date/Time: Monday, February 13, 2017 04:19 - CONCLUSION: Slight increase transverse width of left subdural hematoma with decrease in width of the right subdural hematoma status post drain placement. There is stable shift from left to right and interval development of a moderate degree of pneumocephalus greatest anteriorly. In addition a small parenchymal bleed is seen in the left frontal lobe. Foreign Thomas MD Head CT 02/12/17 0000 Signed Impressions: Service Date/Time: Sunday, February 12, 2017 08:31 - CONCLUSION: 1. Worsening bilateral subdural hygromas with findings of interval subacute hemorrhages bilaterally. 2. In addition, there is an acute component on the left with a resulting 6 mm left to right subfalcine shift. 3. Stable cerebellar atrophy. 4. Results were discussed with Dr. Funes in the ED at the time of dictation. Sergio Boucher MD 02/11/17 02/11/17 02/12/17 02/12/17 02/13/17 02/13/17 06:00 18:00 06:00 18:00 06:00 18:00 Intake Total 200 ml 1100 ml Output Total 1000 ml 360 ml Balance -800 ml 740 ml Intake Oral 0 ml IV Total 200 ml Other 1100 ml Output Urine Total 1000 ml 150 ml Stool Total 0 ml Drainage Total 160 ml Estimated Blood Loss 50 ml # Voids 1 1 Laboratory Tests Test 02/12/17 08:35 02/12/17 10:45 02/12/17 16:00 02/12/17 18:17 White Blood Count 5.0 TH/MM3 Red Blood Count 4.89 MIL/MM3 Hemoglobin 13.3 GM/DL Hematocrit 39.7 % Mean Corpuscular Volume 81.1 FL Mean Corpuscular Hemoglobin 27.2 PG Mean Corpuscular Hemoglobin Concent 33.5 % Red Cell Distribution Width 15.0 % Platelet Count 146 TH/MM3 Mean Platelet Volume 6.9 FL Neutrophils (%) (Auto) 73.0 % Lymphocytes (%) (Auto) 11.6 % Monocytes (%) (Auto) 12.4 % Eosinophils (%) (Auto) 2.6 % Basophils (%) (Auto) 0.4 % Neutrophils # (Auto) 3.6 TH/MM3 Lymphocytes # (Auto) 0.6 TH/MM3 Monocytes # (Auto) 0.6 TH/MM3 Eosinophils # (Auto) 0.1 TH/MM3 Basophils # (Auto) 0.0 TH/MM3 CBC Comment DIFF FINAL Differential Comment Prothrombin Time 22.2 SEC 12.7 SEC 12.8 SEC Prothromb Time International Ratio 2.2 RATIO 1.3 RATIO 1.3 RATIO Activated Partial Thromboplast Time 30.1 SEC 24.3 SEC Blood Urea Nitrogen 16 MG/DL Creatinine 1.00 MG/DL Random Glucose 113 MG/DL Total Protein 6.9 GM/DL Albumin 3.8 GM/DL Calcium Level 9.3 MG/DL Phosphorus Level 3.0 MG/DL Alkaline Phosphatase 65 U/L Aspartate Amino Transf (AST/SGOT) 31 U/L Alanine Aminotransferase (ALT/SGPT) 34 U/L Total Bilirubin 1.6 MG/DL Sodium Level 141 MEQ/L Potassium Level 4.0 MEQ/L Chloride Level 108 MEQ/L Carbon Dioxide Level 26.0 MEQ/L Anion Gap 7 MEQ/L Estimat Glomerular Filtration Rate 71 ML/MIN Nasal Screen MRSA (PCR) MRSA NOT DETECTED Test 02/13/17 03:36 White Blood Count 6.2 TH/MM3 Red Blood Count 4.35 MIL/MM3 Hemoglobin 12.0 GM/DL Hematocrit 35.1 % Mean Corpuscular Volume 80.7 FL Mean Corpuscular Hemoglobin 27.7 PG Mean Corpuscular Hemoglobin Concent 34.3 % Red Cell Distribution Width 14.9 % Platelet Count 127 TH/MM3 Mean Platelet Volume 7.4 FL Neutrophils (%) (Auto) 92.8 % Lymphocytes (%) (Auto) 4.1 % Monocytes (%) (Auto) 2.9 % Eosinophils (%) (Auto) 0.1 % Basophils (%) (Auto) 0.1 % Neutrophils # (Auto) 5.8 TH/MM3 Lymphocytes # (Auto) 0.3 TH/MM3 Monocytes # (Auto) 0.2 TH/MM3 Eosinophils # (Auto) 0.0 TH/MM3 Basophils # (Auto) 0.0 TH/MM3 CBC Comment DIFF FINAL Differential Comment Prothrombin Time 12.8 SEC Prothromb Time International Ratio 1.3 RATIO Blood Urea Nitrogen 16 MG/DL Creatinine 1.00 MG/DL Random Glucose 127 MG/DL Total Protein 6.1 GM/DL Albumin 3.2 GM/DL Calcium Level 7.9 MG/DL Magnesium Level 1.8 MG/DL Alkaline Phosphatase 57 U/L Aspartate Amino Transf (AST/SGOT) 26 U/L Alanine Aminotransferase (ALT/SGPT) 32 U/L Total Bilirubin 1.7 MG/DL Sodium Level 144 MEQ/L Potassium Level 3.7 MEQ/L Chloride Level 108 MEQ/L Carbon Dioxide Level 22.6 MEQ/L Anion Gap 13 MEQ/L Estimat Glomerular Filtration Rate 71 ML/MIN Orders Procedure Category Date Status Time Complete Blood Count LAB 02/12/17 Complete With Diff 08:25 Comprehensive LAB 02/12/17 Complete Metabolic Panel 08:25 ^ Insert Iv MINOO 02/12/17 In Process 08:25 Prothrombin Time / LAB 02/12/17 Complete Inr (Pt) 08:25 Act Partial Throm LAB 02/12/17 Complete Time (Ptt) 08:25 Ct Brain W/O Iv RADCT 02/12/17 Resulted Contrast(Rout) ^ Lab Follow Up MINOO 02/12/17 In Process 08:51 Type And Screen BBK 02/12/17 Complete 08:51 Phytonadione Inj MED 02/12/17 Complete (Vitamin K Inj) 09:00 Prothrombin Complex MED 02/12/17 Complete Conc Inj (Kcentra In 09:30 Admit Order (Ed Use ADMITTING 02/12/17 Transmitted Only) 10:13 Act Partial Throm LAB 02/12/17 Complete Time (Ptt) 10:41 Prothrombin Time / LAB 02/12/17 Complete Inr (Pt) 10:41 Physician Name Changes ADMITTING 02/12/17 Transmitted Mannitol Inj MED 02/12/17 Complete (Mannitol Inj) 13:15 Prothrombin Time / LAB 02/12/17 Complete Inr (Pt) 15:00 Complete Blood Count LAB 02/13/17 Complete With Diff 06:00 Comprehensive LAB 02/13/17 Complete Metabolic Panel 06:00 Magnesium (Mg) LAB 02/13/17 Complete 06:00 Prothrombin Time / LAB 02/13/17 Complete Inr (Pt) 06:00 Admit To Inpatient ADMITTING 02/12/17 Transmitted Code Status CODE 02/12/17 Transmitted 13:14 Vital Signs (Adult) MINOO 02/12/17 In Process 13:14 Activity Bed Rest MINOO 02/12/17 In Process 13:14 Elevate Head Of Bed MINOO 02/12/17 In Process 13:14 Diet Npo DIET 02/12/17 Transmitted Lunch Sodium Chlor 0.9% MED 02/12/17 In Process 1000 Ml Inj (Ns 1000 M 13:14 Sodium Chloride 0.9% MED 02/12/17 In Process Flush (Ns Flush) 13:15 Sodium Chloride 0.9% MED 02/12/17 In Process Flush (Ns Flush) 21:00 Famotidine Inj MED 02/12/17 In Process (Pepcid Inj) 21:00 Albuterol-Ipratropium MED 02/12/17 In Process Neb (Duoneb Neb) 13:15 Ranger Aide / MINOO 02/12/17 Complete Telemetry 13:14 Scd Bilateral/Knee MINOO 02/12/17 Complete High 13:14 Jace Bilateral/Knee MINOO 02/12/17 In Process High 15:00 ^ Initiate Protocol MINOO 02/12/17 In Process 13:14 Instruction MINOO 02/12/17 In Process 13:14 Misc Nursing MED 02/12/17 In Process Information 13:15 Chlorhexidine 2% MED 02/13/17 In Process Cloth (Chlorhexidine 04:00 Chlorhexidine 2% MED 02/12/17 In Process Cloth (Chlorhexidine 13:15 Mrsa Pcr Surveillance LAB 02/12/17 Complete 13:14 Docusate Sodium-Senna MED 02/12/17 In Process (Lilliana-Colace) 21:00 Magnesium Hydroxide MED 02/12/17 In Process Liq (Milk Of Magnesi 13:15 Sennosides (Senokot) MED 02/12/17 In Process 13:15 Bisacodyl Supp MED 02/12/17 In Process (Dulcolax Supp) 13:15 Lactulose Liq MED 02/12/17 In Process (Lactulose Liq) 13:15 Inpatient ADMITTING 02/12/17 Transmitted Certification Losartan (Cozaar) MED 02/13/17 In Process 09:00 Nicardipine Inj MED 02/12/17 In Process (Cardene Inj) 13:30 Hydralazine Inj MED 02/12/17 In Process (Apresoline Inj) 13:30 Equip, Iv Pump Use Of SPD 02/12/17 Logged 14:03 ^ Medication Admin MINOO 02/12/17 In Process Instruction 14:[address]: Other MINOO 02/12/17 In Process 14:19 Potassium Chlor 40 MED 02/12/17 In Process Meq Premix (Kcl 40 Me 14:30 Potassium Chlor 20 MED 02/12/17 In Process Meq Premix (Kcl 20 Me 14:30 Potassium Chloride MED 02/12/17 In Process Eff (K-Lyte Cl Eff) 14:30 Potassium Chlor 40 MED 02/12/17 In Process Meq Premix (Kcl 40 Me 14:30 Potassium Chlor 20 MED 02/12/17 In Process Meq Premix (Kcl 20 Me 14:30 Magnesium Sulfate Inj MED 02/12/17 In Process (Magnesium Sulfate 14:30 Magnesium Oxide MED 02/12/17 In Process (Mag-Ox) 14:30 Magnesium Sulfate Inj MED 02/12/17 In Process (Magnesium Sulfate 14:30 Potassium Phosphate MED 02/12/17 In Process (K-Phos) 14:30 Sodium Phosphate Inj MED 02/12/17 In Process (Sodium Phosphate I 14:30 Potassium Phosphate MED 02/12/17 In Process (K-Phos) 14:30 Potassium Phosphate MED 02/12/17 In Process Inj (Potassium Phosp 14:30 Thrombin Top Soln MED 02/12/17 Complete (Thrombin Top Soln) 16:51 Gelfoam 100 Top MED 02/12/17 Complete (Gelfoam 100 Top) 16:51 Cefazolin Inj (Ancef MED 02/12/17 Complete Inj) 16:51 Gentamicin Inj MED 02/12/17 Complete (Gentamicin Inj) 16:51 Phosphorus (Po4) LAB 02/12/17 Complete 08:35 Bupivacaine-Epi Pf MED 02/12/17 Complete 0.5% Inj (Sensorcaine 17:49 Levetiracetam Inj MED 02/12/17 Complete (Keppra Inj) 19:53 *Ondansetron Inj MED 02/12/17 Complete (*Zofran Inj 21:43 Misc Nursing MED 02/12/17 In Process Information 21:00 Promethazine Inj MED 02/12/17 Complete (Phenergan Inj) 22:21 Class V Pacu Ea 30 Min [facility] 02/12/17 Complete General/Pacu [facility] 02/12/17 Complete Post Anesthesia Oxygen [facility] 02/12/17 Complete Document MINOO 02/12/17 In Process Anticoagulant Alert MINOO 02/12/17 In Process ^ Sling MINOO 02/12/17 In Process Resp Oxygen Malachi C RSP 02/12/17 Logged Titrat 1-4 L Neuro Checks MINOO 02/12/17 In Process 23:41 Ct Brain W/O Iv RADCT 02/13/17 Resulted Contrast(Rout) Instruction MINOO 02/12/17 In Process 23:41 Instruction MINOO 02/12/17 In Process 23:41 Instruction MINOO 02/12/17 In Process 23:45 Cefazolin Inj (Ancef MED 02/13/17 In Process Inj) 00:00 Levetiracetam Inj MED 02/13/17 In Process (Keppra Inj) 01:00 Levetiracetam (Keppra) MED 02/13/17 In Process 01:00 Labetalol Inj MED 02/12/17 In Process (Trandate Inj) 23:45 Ondansetron Inj MED 02/12/17 In Process (Zofran Inj) 23:45 Restraints Non-Violent MINOO 02/13/17 In Process 08:06 Sling Cradle Arm ORTHO 02/13/[address] 02/13/17 Logged Consult-Eval/Tx 09:39 Consult Pt Eval & PT 02/13/17 Logged Treat 09:39 Ot Request For Service OT 02/13/17 Logged 09:39 Metoprolol Tartrate MED 02/13/17 In Process (Lopressor) 10:00 Pill Splitter (Pill MED 02/13/17 In Process Splitter) 10:00 Atorvastatin (Lipitor) MED 02/13/17 In Process 10:00 Haloperidol Inj MED 02/13/17 Logged (Haldol Inj) 11:00 Vital Signs Date Time Temp Pulse Resp B/P (MAP) Pulse Ox O2 Delivery O2 Flow Rate FiO2 02/13/17 08:56 93 21 02/13/17 07:00 96 Nasal Cannula 2.00 02/13/17 06:00 99 02/13/17 04:00 97.3 99 34 126/61 (82) 94 02/13/17 04:00 99 02/13/17 02:00 98 02/13/17 00:00 77 02/13/17 00:00 97.3 121 23 128/64 (85) 95 02/12/17 23:00 96.5 77 17 139/70 (93) 96 Automatic Cuff 02/12/17 23:00 94 Nasal Cannula 3.00 02/12/17 23:00 77 02/12/17 22:15 77 19 132/60 (84) 94 Nasal Cannula 3 02/12/17 22:00 75 18 124/56 (78) 93 Nasal Cannula 3 02/12/17 21:45 77 19 126/68 (87) 93 Nasal Cannula 3 02/12/17 21:30 117 19 104/57 (73) 94 Nasal Cannula 3 02/12/17 21:15 97.5 122 22 119/71 (87) 98 Nasal Cannula 3 02/12/17 18:00 87 02/12/17 16:00 98.2 84 25 149/77 (101) 97 02/12/17 12:06 97.8 72 16 140/83 (102) 98 02/12/17 11:30 78 16 142/89 (106) 98 02/12/17 10:39 97.9 81 16 135/89 (104) 96 Room Air 02/12/17 09:10 97.8 94 16 155/72 (99) 97 Room Air 02/12/17 07:57 97.8 91 20 171/97 (121) 97 Room Air Medical Decision Making Impression and Plan Mr Blackwell is an 81-year-old gentleman with a past medical history significant for atrial fibrillation on Coumadin anticoagulation, and previous trauma with bilateral subdural hematomas. He presented with increasing headache, and balance difficulties. He has a CT that shows bilateral subdural fluid collections. There appears to be a chronic subdural hematoma on the right side and a subacute-chronic subdural hematoma on the left side. There is significant mass effect on the underlying brain with a [id number] midline shift. Based on the progression and symptomatic nature of the subdural hematoma , he would benefit from bilateral bur hole evacuation of the subdural hematomas. POD1 s/p bilateral bur hole evacuation of chronic/sub-acute subdural hematoma Neuro: Neurologically stable with no focal deficit. Head CT show expected postsurgical changes. There is a small amount of acute hemorrhage in the region bilaterally. There is a large component of pneumocephalus. Small new punctate hemorrhage in the frontal lobe. Continue KENIA drain to gravity. We will repeat head CT in 24-48 hours. If there is resolution of pneumocephalus, we will remove KENIA. Hypertension/Atrial fibrillation: Intermittent atrial fibrillation. Blood pressure and heart rate controlled on metoprolol and losartan. Discontinue Coumadin. Pulm: Good O2 saturation GI/Nutrition: Benign. PPI prophylaxis. : Good urine output F/E/N: Advance diet as tolerated. DC IVF if patient tolerates PO intake ID: afebrile. Complete postoperative Ancef 24 hours DVT Prophylaxis: SCD. Chemical prophylaxis contraindicated in the setting of hemorrhage Dispo: Continue ICU. Mihir Arzate MD Feb 13, 2017 11:05
[2017-02-13] MEDS: HALOPERIDOL LACTATE 5 MG/ML AMP IV PUSH PRN (12:02)
[2017-02-14] VITALS (14 sets, daily range): BP systolic 97–125; BP diastolic 63–73; PULSE 72–110; RESP 17–23; TEMP 98.1–99.3; O2SAT 93–98
[2017-02-14] MEDS: levETIRAcetam 500 MG TAB PO SCH ×2 (01:00→12:13)
[2017-02-14] MEDS: levETIRAcetam INJ 100 ML IV SCH ×2 (01:18→12:13)
[2017-02-14] MEDS: CHLORHEXIDINE GLUCONATE 2 % 1 PACK (2 CLOTHS) TOP SCH (03:22)
[2017-02-14] MEDS: METOPROLOL TARTRATE 25 MG TAB PO SCH ×4 (05:01→21:15)
[2017-02-14] MEDS: SODIUM CHLOR 0.9% 1000 ML INJ 1,000 ML IV SCH ×3 (05:19→18:17)
[2017-02-14] MEDS: FAMOTIDINE 20 MG/2 ML VIAL IV PUSH SCH ×2 (08:47→20:36)
[2017-02-14] MEDS: LOSARTAN 50 MG TAB PO SCH (08:47)
[2017-02-14] MEDS: DOCUSATE SODIUM 50 MG/SENNA 8.6 MG TAB PO SCH ×3 (08:47→21:15)
[2017-02-14] MEDS: ATORVASTATIN 10 MG TAB PO SCH (08:47)
[2017-02-14] MEDS: SODIUM CHLORIDE 0.9% FLUSH 10 ML FLUSH IV FLUSH SCH ×2 (08:53→20:36)
--- NOTE | 2017-02-14 10:14 | HHI.CCPN ---
Subjective Remarks/Hospital Course Hospital Course: Patient is an 81-year-old male with past medical history significant for traumatic subdural hemorrhage, bilateral in December [address] Graff (also was following with Dr. Graff as OP), hypertension, chronic atrial fibrillation who presented to the emergency department with approximately one-week history of headache and feeling that he is falling to the right side, and also double vision. He gives history that he was started on Coumadin [address] scan of head was stable and he was cleared by neurosurgery. Stat CT of the head today showed worsening bilateral subdural hygromas with subacute hemorrhages bilaterally and acute left subdural component with 6 mm left to right subfalcine shift. Neurosurgery Dr. Arzate was immediately contacted who evaluated the patient. INR was 2.2 on arrival. Patient received K Centra and vitamin K emergently I evaluated the patient in the emergency department. He appears in mild-to- moderate distress due to headache. After reversal of his INR is 1.3. Because of the midline shift have ordered 25 g of IV mannitol 1. I discussed with Dr. Azrate. Plan is for OR late evening for drainage of the left subdural collection which is causing MLS. Tight blood pressure control with IV hydralazine when necessary and nicardipine infusion if necessary Subjective: 02/13: more delirious overnight. taken for bjorn hole drainage. still CAM+. restrained this AM. pneumocephalus this morning which is worse. patient denies complaints. 02/14: Improved neurologically. Oriented to person and place. Somewhat oriented times. Discussed with Dr. Arzate. Follow-up CT in the afternoon Objective Vital Signs Date Time Temp Pulse Resp B/P (MAP) Pulse Ox O2 Delivery O2 Flow Rate FiO2 02/14/17 08:44 93 Nasal Cannula 2.50 02/14/17 08:00 74 02/14/17 08:00 98.1 21 120/63 (82) 02/13/17 08:56 21 Intake and Output 02/14/17 02/14/17 02/15/17 08:00 16:00 00:00 Intake Total 240 ml Output Total 385 ml Balance -145 ml Result Diagram: 02/13/17 03302/13/[address] of the brain: Worsening bilateral subdural hygromas with subacute hemorrhages bilaterally. Acute component on the left with 6 mm left to right subfalcine shift. Objective Remarks GENERAL: Elderly gentleman who is lying on bed appears in no distress SKIN: Warm and dry. HEAD: Atraumatic. Normocephalic. Two drains in place with serosanguineous drainage EYES: Pupils equal and round, reactive. No injection or drainage. ENT: Moist mucous membranes. Airway patent NECK: Trachea midline. CARDIOVASCULAR: Atrial fibrillation on the monitor. No murmur appreciated. HR in 70s RESPIRATORY: unlabored. equal chest rise. NC o2. GASTROINTESTINAL: Abdomen soft, non-tender, nondistended. MUSCULOSKELETAL: No obvious deformities. NEUROLOGICAL: Awake and alert. No obvious cranial nerve deficits. No deficits in muscle strength or sensation. Speech normal. Oriented to person and place, some what to time. (knows the year) A/P Assessment and Plan Assessment: 81yM with bilateral hygromas with worsening midline shift and new acute left-sided SDH taken to OR 02/12 for left bjorn hole decompression. Continue to monitor in ICU. swallow eval and slowly advance diet. Added metoprolol for improved HR control for afib. NEURO: s/p Fall Acute on chronic left more than right bilateral subdural hematoma with 6 mm midline shift TBI with bilateral subdural hemorrhage 01/01/2017 Agitated Delirium s/p left bjorn hole 02/12. Repeat head CT with pneumocephalus, improving hygroma. F/U CT head in afternoon. D/W Dr. Arzate INR reversed with KCentra and Vit K Keep Na 145-150, started on normal saline keppra PO avoid long-acting sedating meds restrain PRN for patient safety. may need small dose prn haldol. RESP: - Aggressive pulmonary toilet - DuoNeb every 6 hours when necessary CV: Atrial fibrillation on chronic Coumadin Status post pacemaker placement Hypertension - Coumadin stopped and INR reversed as above - decrease NS to 75 cc/hr. - started metorpolol 37.5 mg po q6h for improved rate control. GI: Dysphagia - swallow eval and slowly advance diet. - IV famotidine - Bowel regimen : - Monitor renal function closely. - no indication for grayson at this time. ID: - Monitor closely for infection, perioperative antibiotics per Dr. Arzate HEME: - Monitor CBC, CMP, INR ENDO: - Electrolyte replacement per protocol PROPH: - Bilateral lower extremity SCDs/TOMÁS. IV famotidine. hold pharmacologic dvt prophylaxis given head bleed. LINES: - Utilize peripheral IV - PT/OT/Speech Dispo: remain in ICU. Level 2 Tati Foreman MD Feb 14, 2017 10:14
--- NOTE | 2017-02-14 11:20 | HHI.NSPN ---
History Interval History Mr Blackwell is an 81-year-old gentleman known to Dr. Graff. He has a past medical history significant for atrial fibrillation status post pacemaker placement, and anticoagulation with Coumadin. He suffered a traumatic fall in December 2016. At that time he was found to have subdural hematomas that were treated conservatively. In serial CT imaging, the subdural collections have improved. He was reinitiated on Coumadin 6 days ago. Within the past several days, has had increasing headaches and balance difficulties. His family reports that he lists to the right side. He has had double vision. His last dose of Coumadin was less than 24 hours ago. 02/13 patient underwent a bilateral bur hole evacuation of chronic-subacute subdural hematomas. He had mild nausea overnight that is well-controlled. He reports minimal headaches at this time 02/14 patient awake in bed. He denies headache or nausea. Exam Results Vital Signs Date Time Temp Pulse Resp B/P (MAP) Pulse Ox O2 Delivery O2 Flow Rate FiO2 02/14/17 08:44 93 Nasal Cannula 2.50 02/14/17 08:00 74 02/14/17 08:00 98.1 21 120/63 (82) 02/13/17 08:56 21 Intake and Output 02/14/17 02/14/17 02/15/17 08:00 16:00 00:00 Intake Total 240 ml Output Total 385 ml Balance -145 ml Physical Examination GENERAL: This is a well-nourished, well-developed patient, in no apparent distress. SKIN: No rashes, ecchymoses or lesions. Cool and dry. HEAD: Atraumatic. Normocephalic. Dressings are in place with bilateral KENIA drains. EYES: Pupils equal round and reactive. Extraocular motions intact. No scleral icterus. No injection or drainage. ENT: Nose without bleeding, purulent drainage or septal hematoma. Throat without erythema, tonsillar hypertrophy or exudate. Uvula midline. Airway patent. NECK: Trachea midline. No JVD or lymphadenopathy. Supple, nontender, no meningeal signs. CARDIOVASCULAR: Regular rate and rhythm without murmurs RESPIRATORY: Clear to auscultation. Breath sounds equal bilaterally. No wheezes , rales, or rhonchi. GASTROINTESTINAL: Abdomen soft, non-tender, nondistended. No hepato-splenomegaly , or palpable masses. No guarding. MUSCULOSKELETAL: Extremities without clubbing, cyanosis, or edema. No joint tenderness, effusion, or edema noted. No calf tenderness. Negative Homans sign bilaterally. NEUROLOGICAL: Awake and alert. Cranial nerves II through XII intact. Motor strength testing is intact with 5/5 to all muscle groups tested. Sensation is grossly intact to light touch throughout. Deep tendon reflexes are 2+ at the biceps, triceps, patella. No clonus at the ankles. No pronator drift Speech is clear, appropriate, and non-aphasic. Lab, Micro, Other Results Allergies Coded Allergies Type Severity Reaction Last Updated Verified No Known Allergies Allergy Unknown 02/12/17 No Recent Impressions Head CT 02/13/17 0000 Signed Impressions: Service Date/Time: Monday, February 13, 2017 04:19 - CONCLUSION: Slight increase transverse width of left subdural hematoma with decrease in width of the right subdural hematoma status post drain placement. There is stable shift from left to right and interval development of a moderate degree of pneumocephalus greatest anteriorly. In addition a small parenchymal bleed is seen in the left frontal lobe. Foreign Thomas MD Head CT 02/12/17 0000 Signed Impressions: Service Date/Time: Sunday, February 12, 2017 08:31 - CONCLUSION: 1. Worsening bilateral subdural hygromas with findings of interval subacute hemorrhages bilaterally. 2. In addition, there is an acute component on the left with a resulting 6 mm left to right subfalcine shift. 3. Stable cerebellar atrophy. 4. Results were discussed with Dr. Funes in the ED at the time of dictation. Sergio Boucher MD 02/12/17 02/12/17 02/13/17 02/13/17 02/14/17 02/14/17 06:00 18:00 06:00 18:00 06:00 18:00 Intake Total 200 ml 1100 ml 380 ml 1065 ml Output Total 1000 ml 360 ml 32 ml 385 ml Balance -800 ml 740 ml 348 ml 680 ml Intake Oral 0 ml 180 ml 240 ml IV Total 200 ml 200 ml 825 ml Other 1100 ml Output Urine Total 1000 ml 150 ml 350 ml Stool Total 0 ml Drainage Total 160 ml 32 ml 35 ml Estimated Blood Loss 50 ml # Voids 1 1 4 1 # Bowel Movements 0 Laboratory Tests Test 02/12/17 08:35 02/12/17 10:45 02/12/17 16:00 02/12/17 18:17 White Blood Count 5.0 TH/MM3 Red Blood Count 4.89 MIL/MM3 Hemoglobin 13.3 GM/DL Hematocrit 39.7 % Mean Corpuscular Volume 81.1 FL Mean Corpuscular Hemoglobin 27.2 PG Mean Corpuscular Hemoglobin Concent 33.5 % Red Cell Distribution Width 15.0 % Platelet Count 146 TH/MM3 Mean Platelet Volume 6.9 FL Neutrophils (%) (Auto) 73.0 % Lymphocytes (%) (Auto) 11.6 % Monocytes (%) (Auto) 12.4 % Eosinophils (%) (Auto) 2.6 % Basophils (%) (Auto) 0.4 % Neutrophils # (Auto) 3.6 TH/MM3 Lymphocytes # (Auto) 0.6 TH/MM3 Monocytes # (Auto) 0.6 TH/MM3 Eosinophils # (Auto) 0.1 TH/MM3 Basophils # (Auto) 0.0 TH/MM3 CBC Comment DIFF FINAL Differential Comment Prothrombin Time 22.2 SEC 12.7 SEC 12.8 SEC Prothromb Time International Ratio 2.2 RATIO 1.3 RATIO 1.3 RATIO Activated Partial Thromboplast Time 30.1 SEC 24.3 SEC Blood Urea Nitrogen 16 MG/DL Creatinine 1.00 MG/DL Random Glucose 113 MG/DL Total Protein 6.9 GM/DL Albumin 3.8 GM/DL Calcium Level 9.3 MG/DL Phosphorus Level 3.0 MG/DL Alkaline Phosphatase 65 U/L Aspartate Amino Transf (AST/SGOT) 31 U/L Alanine Aminotransferase (ALT/SGPT) 34 U/L Total Bilirubin 1.6 MG/DL Sodium Level 141 MEQ/L Potassium Level 4.0 MEQ/L Chloride Level 108 MEQ/L Carbon Dioxide Level 26.0 MEQ/L Anion Gap 7 MEQ/L Estimat Glomerular Filtration Rate 71 ML/MIN Nasal Screen MRSA (PCR) MRSA NOT DETECTED Test 02/13/17 03:36 White Blood Count 6.2 TH/MM3 Red Blood Count 4.35 MIL/MM3 Hemoglobin 12.0 GM/DL Hematocrit 35.1 % Mean Corpuscular Volume 80.7 FL Mean Corpuscular Hemoglobin 27.7 PG Mean Corpuscular Hemoglobin Concent 34.3 % Red Cell Distribution Width 14.9 % Platelet Count 127 TH/MM3 Mean Platelet Volume 7.4 FL Neutrophils (%) (Auto) 92.8 % Lymphocytes (%) (Auto) 4.1 % Monocytes (%) (Auto) 2.9 % Eosinophils (%) (Auto) 0.1 % Basophils (%) (Auto) 0.1 % Neutrophils # (Auto) 5.8 TH/MM3 Lymphocytes # (Auto) 0.3 TH/MM3 Monocytes # (Auto) 0.2 TH/MM3 Eosinophils # (Auto) 0.0 TH/MM3 Basophils # (Auto) 0.0 TH/MM3 CBC Comment DIFF FINAL Differential Comment Prothrombin Time 12.8 SEC Prothromb Time International Ratio 1.3 RATIO Blood Urea Nitrogen 16 MG/DL Creatinine 1.00 MG/DL Random Glucose 127 MG/DL Total Protein 6.1 GM/DL Albumin 3.2 GM/DL Calcium Level 7.9 MG/DL Magnesium Level 1.8 MG/DL Alkaline Phosphatase 57 U/L Aspartate Amino Transf (AST/SGOT) 26 U/L Alanine Aminotransferase (ALT/SGPT) 32 U/L Total Bilirubin 1.7 MG/DL Sodium Level 144 MEQ/L Potassium Level 3.7 MEQ/L Chloride Level 108 MEQ/L Carbon Dioxide Level 22.6 MEQ/L Anion Gap 13 MEQ/L Estimat Glomerular Filtration Rate 71 ML/MIN Orders Procedure Category Date Status Time Complete Blood Count LAB 02/12/17 Complete With Diff 08:25 Comprehensive LAB 02/12/17 Complete Metabolic Panel 08:25 ^ Insert Iv MINOO 02/12/17 In Process 08:25 Prothrombin Time / LAB 02/12/17 Complete Inr (Pt) 08:25 Act Partial Throm LAB 02/12/17 Complete Time (Ptt) 08:25 Ct Brain W/O Iv RADCT 02/12/17 Resulted Contrast(Rout) ^ Lab Follow Up MINOO 02/12/17 In Process 08:51 Type And Screen BBK 02/12/17 Complete 08:51 Phytonadione Inj MED 02/12/17 Complete (Vitamin K Inj) 09:00 Prothrombin Complex MED 02/12/17 Complete Conc Inj (Kcentra In 09:30 Admit Order (Ed Use ADMITTING 02/12/17 Transmitted Only) 10:13 Act Partial Throm LAB 02/12/17 Complete Time (Ptt) 10:41 Prothrombin Time / LAB 02/12/17 Complete Inr (Pt) 10:41 Physician Name Changes ADMITTING 02/12/17 Transmitted Mannitol Inj MED 02/12/17 Complete (Mannitol Inj) 13:15 Prothrombin Time / LAB 02/12/17 Complete Inr (Pt) 15:00 Complete Blood Count LAB 02/13/17 Complete With Diff 06:00 Comprehensive LAB 02/13/17 Complete Metabolic Panel 06:00 Magnesium (Mg) LAB 02/13/17 Complete 06:00 Prothrombin Time / LAB 02/13/17 Complete Inr (Pt) 06:00 Admit To Inpatient ADMITTING 02/12/17 Transmitted Code Status CODE 02/12/17 Transmitted 13:14 Vital Signs (Adult) MINOO 02/12/17 In Process 13:14 Activity Bed Rest MINOO 02/12/17 In Process 13:14 Elevate Head Of Bed MINOO 02/12/17 In Process 13:14 Diet Npo DIET 02/12/17 Complete Lunch Sodium Chlor 0.9% MED 02/12/17 In Process 1000 Ml Inj (Ns 1000 M 13:14 Sodium Chloride 0.9% MED 02/12/17 In Process Flush (Ns Flush) 13:15 Sodium Chloride 0.9% MED 02/12/17 In Process Flush (Ns Flush) 21:00 Famotidine Inj MED 02/12/17 In Process (Pepcid Inj) 21:00 Albuterol-Ipratropium MED 02/12/17 In Process Neb (Duoneb Neb) 13:15 Director Of Exhibits / MINOO 02/12/17 Complete Telemetry 13:14 Scd Bilateral/Knee MINOO 02/12/17 Complete High 13:14 Jace Bilateral/Knee MINOO 02/12/17 In Process High 15:00 ^ Initiate Protocol MINOO 02/12/17 In Process 13:14 Instruction MINOO 02/12/17 In Process 13:14 Misc Nursing MED 02/12/17 In Process Information 13:15 Chlorhexidine 2% MED 02/13/17 In Process Cloth (Chlorhexidine 04:00 Chlorhexidine 2% MED 02/12/17 In Process Cloth (Chlorhexidine 13:15 Mrsa Pcr Surveillance LAB 02/12/17 Complete 13:14 Docusate Sodium-Senna MED 02/12/17 In Process (Lilliana-Colace) 21:00 Magnesium Hydroxide MED 02/12/17 In Process Liq (Milk Of Magnesi 13:15 Sennosides (Senokot) MED 02/12/17 In Process 13:15 Bisacodyl Supp MED 02/12/17 In Process (Dulcolax Supp) 13:15 Lactulose Liq MED 02/12/17 In Process (Lactulose Liq) 13:15 Inpatient ADMITTING 02/12/17 Transmitted Certification Losartan (Cozaar) MED 02/13/17 In Process 09:00 Nicardipine Inj MED 02/12/17 In Process (Cardene Inj) 13:30 Hydralazine Inj MED 02/12/17 In Process (Apresoline Inj) 13:30 Equip, Iv Pump Use Of SPD 02/12/17 Logged 14:03 ^ Medication Admin MINOO 02/12/17 In Process Instruction 14:[address]: Nikki MINOO 02/12/17 In Process 14:19 Potassium Chlor 40 MED 02/12/17 In Process Meq Premix (Kcl 40 Me 14:30 Potassium Chlor 20 MED 02/12/17 In Process Meq Premix (Kcl 20 Me 14:30 Potassium Chloride MED 02/12/17 In Process Eff (K-Lyte Cl Eff) 14:30 Potassium Chlor 40 MED 02/12/17 In Process Meq Premix (Kcl 40 Me 14:30 Potassium Chlor 20 MED 02/12/17 In Process Meq Premix (Kcl 20 Me 14:30 Magnesium Sulfate Inj MED 02/12/17 In Process (Magnesium Sulfate 14:30 Magnesium Oxide MED 02/12/17 In Process (Mag-Ox) 14:30 Magnesium Sulfate Inj MED 02/12/17 In Process (Magnesium Sulfate 14:30 Potassium Phosphate MED 02/12/17 In Process (K-Phos) 14:30 Sodium Phosphate Inj MED 02/12/17 In Process (Sodium Phosphate I 14:30 Potassium Phosphate MED 02/12/17 In Process (K-Phos) 14:30 Potassium Phosphate MED 02/12/17 In Process Inj (Potassium Phosp 14:30 Thrombin Top Soln MED 02/12/17 Complete (Thrombin Top Soln) 16:51 Gelfoam 100 Top MED 02/12/17 Complete (Gelfoam 100 Top) 16:51 Cefazolin Inj (Ancef MED 02/12/17 Complete Inj) 16:51 Gentamicin Inj MED 02/12/17 Complete (Gentamicin Inj) 16:51 Phosphorus (Po4) LAB 02/12/17 Complete 08:35 Bupivacaine-Epi Pf MED 02/12/17 Complete 0.5% Inj (Sensorcaine 17:49 Levetiracetam Inj MED 02/12/17 Complete (Keppra Inj) 19:53 *Ondansetron Inj MED 02/12/17 Complete (*Zofran Inj 21:43 Misc Nursing MED 02/12/17 Complete Information 21:00 Promethazine Inj MED 02/12/17 Complete (Phenergan Inj) 22:21 Class V Pac[facility]a 30 Min [facility] 02/12/17 Complete General/Pacu [facility] 02/12/17 Complete Post Anesthesia Oxygen [facility] 02/12/17 Complete Document MINOO 02/12/17 In Process Anticoagulant Alert MINOO 02/12/17 In Process ^ Sling MINOO 02/12/17 In Process Resp Oxygen Malachi C RSP 02/12/17 Logged Titrat 1-4 L Neuro Checks MINOO 02/12/17 In Process 23:41 Ct Brain W/O Iv RADCT 02/13/17 Resulted Contrast(Rout) Instruction MINOO 02/12/17 In Process 23:41 Instruction MINOO 02/12/17 In Process 23:41 Instruction MINOO 02/12/17 In Process 23:45 Cefazolin Inj (Ancef MED 02/13/17 Complete Inj) 00:00 Levetiracetam Inj MED 02/13/17 In Process (Keppra Inj) 01:00 Levetiracetam (Keppra) MED 02/13/17 In Process 01:00 Labetalol Inj MED 02/12/17 In Process (Trandate Inj) 23:45 Ondansetron Inj MED 02/12/17 In Process (Zofran Inj) 23:45 Restraints Non-Violent MINOO 02/13/17 Complete 08:06 Sling Cradle Arm ORTHO 02/13/[address] 02/13/17 Logged Consult-Eval/Tx 09:39 Consult Pt Eval & PT 02/13/17 Logged Treat 09:39 Ot Request For Service OT 02/13/17 Logged 09:39 Metoprolol Tartrate MED 02/13/17 In Process (Lopressor) 10:00 Pill Splitter (Pill MED 02/13/17 In Process Splitter) 10:00 Atorvastatin (Lipitor) MED 02/13/17 In Process 10:00 Haloperidol Inj MED 02/13/17 In Process (Haldol Inj) 11:00 Diet Regular Basic DIET 02/13/17 Transmitted Lunch (Hub Use Only)Inp Phy CONS 02/13/17 Transmitted Cons/Ref Ct Brain W/O Iv RADCT 02/14/17 Logged Contrast(Rout) 14:00 Complete Blood Count LAB 02/15/17 Verified With Diff 06:00 Comprehensive LAB 02/15/17 Verified Metabolic Panel 06:00 Magnesium (Mg) LAB 02/15/17 Verified 06:00 Vital Signs Date Time Temp Pulse Resp B/P (MAP) Pulse Ox O2 Delivery O2 Flow Rate FiO2 02/14/17 08:44 93 Nasal Cannula 2.50 02/14/17 08:00 74 02/14/17 08:00 98.1 74 21 120/63 (82) 94 02/14/17 07:00 97 Room Air 2.00 02/14/17 06:00 87 02/14/17 04:00 87 02/14/17 04:00 98.3 110 23 125/71 (89) 96 02/14/17 02:00 76 02/14/17 00:00 99.3 94 21 110/72 (85) 96 02/14/17 00:00 76 02/13/17 22:00 76 02/13/17 21:12 98 Nasal Cannula 2.00 02/13/17 20:00 97 02/13/17 20:00 98.5 97 21 140/71 (94) 97 Arterial Line 02/13/17 19:30 94 Room Air 2.00 02/13/17 19:00 91 Room Air 2.00 02/13/17 18:00 91 02/13/17 16:00 83 02/13/17 16:00 98.0 83 24 144/70 (94) 95 02/13/17 14:00 82 02/13/17 12:00 97.4 86 15 147/82 (103) 99 02/13/17 12:00 86 02/13/17 10:00 118 02/13/17 08:56 93 21 02/13/17 08:00 136 02/13/17 08:00 97.6 136 28 140/77 (98) 96 02/13/17 07:00 96 Nasal Cannula 2.00 02/13/17 06:00 99 02/13/17 04:00 97.3 99 34 126/61 (82) 94 02/13/17 04:00 99 02/13/17 02:00 98 02/13/17 00:00 77 02/13/17 00:00 97.3 121 23 128/64 (85) 95 02/12/17 23:00 96.5 77 17 139/70 (93) 96 Automatic Cuff 02/12/17 23:00 94 Nasal Cannula 3.00 02/12/17 23:00 77 02/12/17 22:15 77 19 132/60 (84) 94 Nasal Cannula 3 02/12/17 22:00 75 18 124/56 (78) 93 Nasal Cannula 3 02/12/17 21:45 77 19 126/68 (87) 93 Nasal Cannula 3 02/12/17 21:30 117 19 104/57 (73) 94 Nasal Cannula 3 02/12/17 21:15 97.5 122 22 119/71 (87) 98 Nasal Cannula 3 02/12/17 18:00 87 02/12/17 16:00 98.2 84 25 149/77 (101) 97 02/12/17 12:06 97.8 72 16 140/83 (102) 98 02/12/17 11:30 78 16 142/89 (106) 98 02/12/17 10:39 97.9 81 16 135/89 (104) 96 Room Air 02/12/17 09:10 97.8 94 16 155/72 (99) 97 Room Air 02/12/17 07:57 97.8 91 20 171/97 (121) 97 Room Air Medical Decision Making Impression and Plan Mr Blackwell is an 81-year-old gentleman with a past medical history significant for atrial fibrillation on Coumadin anticoagulation, and previous trauma with bilateral subdural hematomas. He presented with increasing headache, and balance difficulties. He has a CT that shows bilateral subdural fluid collections. There appears to be a chronic subdural hematoma on the right side and a subacute-chronic subdural hematoma on the left side. There is significant mass effect on the underlying brain with a [id number] midline shift. Based on the progression and symptomatic nature of the subdural hematoma , he would benefit from bilateral bur hole evacuation of the subdural hematomas. POD2 s/p bilateral bur hole evacuation of chronic/sub-acute subdural hematoma Neuro: Neurologically stable with no focal deficit. Head CT show expected postsurgical changes. There is a small amount of acute hemorrhage in the region bilaterally. There is a large component of pneumocephalus. Small new punctate hemorrhage in the frontal lobe. 02/13 Continue KENIA drain to gravity. We will repeat head CT in 24-48 hours. If there is resolution of pneumocephalus, we will remove KENIA. 02/14 improving neurologic function. Repeat head CT today. Hypertension/Atrial fibrillation: Intermittent atrial fibrillation. Blood pressure and heart rate controlled on metoprolol and losartan. Discontinue Coumadin. 02/14 hemodynamically stable Pulm: Good O2 saturation GI/Nutrition: Benign. PPI prophylaxis. : Good urine output F/E/N: Advance diet as tolerated. DC IVF if patient tolerates PO intake 02/14 tolerating oral intake ID: afebrile. Complete postoperative Ancef 24 hours 02/14 afebrile DVT Prophylaxis: SCD. Chemical prophylaxis contraindicated in the setting of hemorrhage Dispo: Continue ICU. Mihir Arzate MD Feb 14, 2017 11:19
[2017-02-14] MEDS: hydrALAZINE HCL 20 MG/ML VIAL IV PUSH PRN (12:13)
--- NOTE | 2017-02-14 14:35 | RADRPT ---
EXAM DATE/TIME: 02/14/2017 14:14 [place] COMPARISON: CT BRAIN W/O CONTRAST, February 13, 2017, 4:19. INDICATIONS : Follow up hemorrhage. RADIATION DOSE: 50.01 CTDIvol (mGy) MEDICAL HISTORY : Cardiovascular disease. Hypertension. Ca prostate, rahat therapy, afib SURGICAL HISTORY : Appendectomy. ENCOUNTER: Subsequent ACUITY: 1 day PAIN SCALE: Non-responsive LOCATION: cranial TECHNIQUE: Multiple contiguous axial images were obtained of the head. Using automated exposure control and adj ustment of the mA and/or kV according to patient size, radiation dose was kept as low as reasonably a chievable to obtain optimal diagnostic quality images. DICOM format image data is available electro nically for review and comparison. FINDINGS: Today's exam is compared to the prior study. Bilateral subdural drains remain in place. There is a sm all focal hemorrhage high in the left frontal lobe measuring 9 mm. This is slightly increased in size compared to the prior exam. There continues to be some mass effect and midline shift to the right by a proximally 4-5 mm. This is mildly improved compared to the prior examination. There continues to b e bilateral intracranial air in system with prior recent surgery. The posterior fossa stable and unre markable. The subdural fluid collection on the left measures 1.7 cm of separation. Subdural fluid col lection the right measures 1.1 cm. No new areas of hemorrhage are demonstrated. CONCLUSION: 1. Small focal intraparenchymal hemorrhage in the high left frontal lobe measuring 9 mm. This is slig htly increased in size compared to the prior study. 2. Mild improvement in the mass effect and midline shift to the right compared to the prior study wit h approximately 4-5 mm of shift. 3. No significant change in the bilateral subdural collections, left greater than right. The bilatera l subdural drains remain in place. Jose E Salvador MD on February 14, 2017 at 14:28 Board Certified Radiologist. This report was verified electronically.
[2017-02-14] MEDS: HALOPERIDOL LACTATE 5 MG/ML AMP IV PUSH PRN (16:15)
[2017-02-15] VITALS (14 sets, daily range): BP systolic 109–157; BP diastolic 65–83; PULSE 79–105; RESP 15–26; TEMP 97.8–98.8; O2SAT 94–97
[2017-02-15] MEDS: levETIRAcetam 500 MG TAB PO SCH ×2 (00:26→13:00)
[2017-02-15] MEDS: levETIRAcetam INJ 100 ML IV SCH ×2 (00:26→13:13)
[2017-02-15] MEDS: CHLORHEXIDINE GLUCONATE 2 % 1 PACK (2 CLOTHS) TOP SCH (01:47)
[2017-02-15] MEDS: METOPROLOL TARTRATE 25 MG TAB PO SCH ×4 (04:58→21:43)
[2017-02-15 06:28] LABS: AUTOMATED NEUTROPHIL # 5.3 TH/MM3 (1.8-7.7); BASOPHIL % 0.2 % (0.0-2.0); EOSINOPHIL # 0.1 TH/MM3 (0-0.4); EOSINOPHIL % 2.1 % (0.0-4.0); HEMATOCRIT 33.2 % (39.0-51.0); HEMO FLAGS DIFF FINAL; LYMPH % 8.2 % (9.0-44.0); LYMPHOCYTE # 0.6 TH/MM3 (1.0-4.8); MEAN CELL VOLUME 82.6 FL (80.0-100.0); MEAN CORPUSCULAR HGB CONC 33.9 % (32.0-36.0); MONO % 13.2 % (0.0-8.0); NEUT % 76.3 % (16.0-70.0); PLATELET COUNT 123 TH/MM3 (150-450); RED BLOOD COUNT 4.02 MIL/MM3 (4.50-5.90); RED CELL DISTRIBUTION WIDTH 14.9 % (11.6-17.2)
[2017-02-15 07:16] LABS: ALKALINE PHOSPHATASE 53 U/L (45-117); ALT (GPT) 32 U/L (12-78); ANION GAP 6 MEQ/L (5-15); AST (GOT) 73 U/L (15-37); BICARBONATE 26.2 MEQ/L (21.0-32.0); BLOOD UREA NITROGEN 23 MG/DL (7-18); CHLORIDE 114 MEQ/L (98-107); GLOMERULAR FILTRATION RATE 81 ML/MIN (>89); MAGNESIUM 2.3 MG/DL (1.5-2.5); POTASSIUM 3.8 MEQ/L (3.5-5.1); SODIUM (NA) 146 MEQ/L (136-145); TOTAL BILIRUBIN ADULT 1.6 MG/DL (0.2-1.0)
[2017-02-15] MEDS: SODIUM CHLOR 0.9% 1000 ML INJ 1,000 ML IV SCH (07:37)
[2017-02-15] MEDS: LOSARTAN 50 MG TAB PO SCH (09:19)
[2017-02-15] MEDS: FAMOTIDINE 20 MG/2 ML VIAL IV PUSH SCH ×2 (09:19→21:43)
[2017-02-15] MEDS: ATORVASTATIN 10 MG TAB PO SCH (09:20)
[2017-02-15] MEDS: SODIUM CHLORIDE 0.9% FLUSH 10 ML FLUSH IV FLUSH SCH ×2 (09:20→21:43)
--- NOTE | 2017-02-15 13:30 | HHI.NSPN ---
Note Status Status: Progress Note Interval History Diagnosis Traumatic brain injury Interval History Mr Funez is an 81-year-old.who has a past medical history significant for atrial fibrillation status post pacemaker placement, and anticoagulation with Coumadin. He suffered a traumatic fall in December 2016. At that time he was found to have subdural hematomas that were treated conservatively. In serial CT imaging, the subdural collections have improved. He was reinitiated on Coumadin 6 days ago. Within the past several days, has had increasing headaches and balance difficulties. His family reports that he lists to the right side. He has had double vision. His last dose of Coumadin was less than 24 hours ago. 02/15. Extubated. Intermittent periods of confusion and agitation. Moves all 4 extremities without deficits. Ambulated with PT Labs, Micro, & Vital Signs Results Date Time Temp Pulse Resp B/P (MAP) Pulse Ox O2 Delivery O2 Flow Rate FiO2 02/15/17 10:00 98 02/15/17 08:00 98.6 83 19 157/83 (107) 97 02/15/17 08:00 83 02/15/17 07:00 97 Room Air 2.00 02/15/17 06:00 105 02/15/17 04:00 99 02/15/17 04:00 98.2 99 15 142/67 (92) 94 02/15/17 02:00 84 02/15/17 00:00 84 02/15/17 00:00 97.8 84 15 114/65 (81) 95 02/14/17 22:00 82 02/14/17 20:00 98.5 94 18 97/66 (76) 98 02/14/17 20:00 94 02/14/17 19:59 97 Nasal Cannula 2.00 02/14/17 19:00 97 Room Air 2.00 02/14/17 18:00 96 02/14/17 16:00 95 02/14/17 16:00 98.2 95 20 107/66 (80) 95 02/14/17 14:00 82 Constitutional Vital Signs Date Time Temp Pulse Resp B/P (MAP) Pulse Ox O2 Delivery O2 Flow Rate FiO2 02/15/17 10:00 98 02/15/17 08:00 98.6 83 19 157/83 (107) 97 02/15/17 08:00 83 02/15/17 07:00 97 Room Air 2.00 02/15/17 06:00 105 02/15/17 04:00 99 02/15/17 04:00 98.2 99 15 142/67 (92) 94 02/15/17 02:00 84 02/15/17 00:00 84 02/15/17 00:00 97.8 84 15 114/65 (81) 95 02/14/17 22:00 82 02/14/17 20:00 98.5 94 18 97/66 (76) 98 02/14/17 20:00 94 02/14/17 19:59 97 Nasal Cannula 2.00 02/14/17 19:00 97 Room Air 2.00 02/14/17 18:00 96 02/14/17 16:00 95 02/14/17 16:00 98.2 95 20 107/66 (80) 95 02/14/17 14:00 82 Physical Exam mr funez is alert, confused, oriented to self. GCS 14 Cranial nerve examination demonstrates the pupils to be equal, round, and reactive to light. Extra-ocular movements are intact with normal convergence. Facial motor function appears normal and symmetrical. Face sensation, hearing, visual dickens, and olfaction can not be assessed properly due to the patients condition. The patient has an intact corneal reflex and a gag reflex. Sternocleidomastoid and trapezius have normal and symmetrical strength. Other cranial nerves are intact. Cervical spine has a normal range of motion of the cervical spine without pain. There is no tenderness to palpation to the spinous processes or paraspinal muscles. Muscle testing reveals normal bulk and tone overall without rigidity, spasticity , fasciculations, or atrophy. Muscle strength is 5/5 in all muscle groups of both upper and lower extremities. Deep tendon reflexes are 1+ and symmetrical in the biceps, triceps, and brachioradialis, bilaterally, in the upper extremities. In the lower extremities , the patellar and Achilles are 1+, bilaterally. There is a bilateral plantar flexion response. Hoffmanns sign is negative. There is no clonus or other abnormal reflexes noted. Cerebellar examination is limited due to the patient condition Medications Current Medications Current Medications Phytonadione 10 mg/Sodium Chloride 51 ml @ 100 mls/hr ONCE ONCE IV Last administered on 02/12/17 09:09; Start 02/12/17 at 09:00; Stop 02/12/17 at 09:30 ; Status DC Prothrombin Complex Concent (Human) 1500 units/Syringe / Bag 0 ml @ 500 mls/hr ONCE ONCE IV Last administered on 02/12/17 09:19; Start 02/12/17 at 09:30; Stop 02/12/17 at 09:31; Status DC Mannitol (Mannitol Inj) 25 gm ONCE ONCE IV Last administered on 02/12/17 14: 03; Start 02/12/17 at 13:15; Stop 02/12/17 at 13:55; Status DC Sodium Chloride 1,000 ml @ 75 mls/hr [id number] IV Last administered on 14:51; Start 02/12/17 at 13:14 Sodium Chloride (NS Flush) 2 ml UNSCH PRN IV FLUSH FLUSH AFTER USING IV ACCESS ; Start 02/12/17 at 13:15 Sodium Chloride (NS Flush) 2 ml BID IV FLUSH Last administered on 02/15/17 09 :20; Start 02/12/17 at 21:00 Famotidine (Pepcid Inj) 20 mg Q12HR IV PUSH Last administered on 02/15/17 09: 19; Start 02/12/17 at 21:00 Albuterol/ Ipratropium (Duoneb Neb) 1 ampule Q2HR NEB PRN INH WHEEZING; Start 02/12/17 at 13:15 Miscellaneous Information 1 [id number] Last administered on 02/12/17 13:15; Start 02/12/17 at 13:15 Chlorhexidine Gluconate (Chlorhexidine 2% Cloth) 3 pack Taper DAILY@04 TOP ; Start 02/13/17 at 04:00; Stop 02/09/18 at 03:59 Chlorhexidine Gluconate (Chlorhexidine 2% Cloth) 3 pack UNSCH PRN TOP HYGIENIC CARE; Start 02/12/17 at 13:15 Senna/Docusate Sodium (Lilliana-Colace) 1 tab BID PO Last administered on 21:15; Start 02/12/17 at 21:00 Magnesium Hydroxide (Milk Of Magnesia Liq) 30 ml Q12H PRN PO Mild constipation ; Start 02/12/17 at 13:15 Sennosides (Senokot) 17.2 mg Q12H PRN PO Moderate constipation; Start 02/12/17 at 13:15 Bisacodyl (Dulcolax Supp) 10 mg DAILY PRN RECTAL SEVERE CONSITIPATION; Start 02/12/17 at 13:15 Lactulose (Lactulose Liq) 30 ml DAILY PRN PO SEVERE CONSITIPATION; Start at 13:15 Losartan Potassium (Cozaar) 50 mg DAILY PO Last administered on 02/15/17 09: 19; Start 02/13/17 at 09:00 Nicardipine HCl 25 mg/Sodium Chloride 250 ml @ 50 mls/hr TITRATE PRN IV Blood pressure management; Start 02/12/17 at 13:30 Hydralazine HCl (Apresoline Inj) 20 mg Q4H PRN IV PUSH SBP >160 Last administered on 02/14/17t 12:13; Start 02/12/17 at 13:30 Potassium Chloride 100 ml @ 50 mls/hr Q2H PRN IV For Potassium 2.8 - 3.2 mEq/L ; Start 02/12/17 at 14:30 Potassium Chloride 100 ml @ 50 mls/hr Q2H PRN IV For Potassium 2.8 - 3.2 mEq/L ; Start 02/12/17 at 14:30 Potassium Bicarb/ Potassium Chloride (K-Lyte Cl Eff) 50 meq UNSCH PRN PO For Potassium 3.3 - 3.5 mEq/L; Start 02/12/17 at 14:30 Potassium Chloride 100 ml @ 25 mls/hr UNSCH PRN IV For Potassium 3.3 - 3.5 mEq /L; Start 02/12/17 at 14:30 Potassium Chloride 100 ml @ 50 mls/hr Q2H PRN IV For Potassium 3.3 - 3.5 mEq/L ; Start 02/12/17 at 14:30 Magnesium Sulfate 4 gm/Sodium Chloride 100 ml @ 50 mls/hr UNSCH PRN IV For Magnesium 0.9 - 1.1 mg/dL; Start 02/12/17 at 14:30 Magnesium Oxide (Mag-Ox) 800 mg UNSCH PRN PO For Magnesium 1.2 - 1.6 mg/dL; Start 02/12/17 at 14:30 Magnesium Sulfate 2 gm/Sodium Chloride 100 ml @ 50 mls/hr UNSCH PRN IV For Magnesium 1.2 - 1.6 mg/dL; Start 02/12/17 at 14:30 Potassium Phosphate (K-Phos) 2,000 mg Q4H PRN PO For Phosphorus < 2.5 mg/dL; Start 02/12/17 at 14:30 Sodium Phosphate 30 mmol/Sodium Chloride 250 ml @ 42 mls/hr UNSCH PRN IV For Phosphorus < 2.5 mg/dL; Start 02/12/17 at 14:30 Potassium Phosphate (K-Phos) 2,000 mg UNSCH PRN PO/TUBE SEE LABEL COMMENTS; Start 02/12/17 at 14:30 Potassium Phosphate 30 mmol/ Sodium Chloride 260 ml @ 42 mls/hr UNSCH PRN IV SEE LABEL COMMENTS; Start 02/12/17 at 14:30 Thrombin (Thrombin Top Soln) 10,000 units STK-MED ONCE .ROUTE Last administered on 02/12/17 20:11; Start 02/12/17 at 16:51; Stop 02/12/17 at 16:52 ; Status DC Gelatin (Gelfoam 100 Top) 1 foam STK-MED ONCE .ROUTE Last administered on 20:11; Start 02/12/17 at 16:51; Stop 02/12/17 at 16:52; Status DC Cefazolin Sodium (Ancef Inj) 2,000 mg STK-MED ONCE .ROUTE Last administered on 02/12/17 19:59; Start 02/12/17 at 16:51; Stop 02/12/17 at 16:52; Status DC Gentamicin Sulfate (Gentamicin Inj) 240 mg STK-MED ONCE .ROUTE ; Start 02/12/17 at 16:51; Stop 02/12/17 at 16:52; Status DC Bupivacaine HCl/ Epinephrine Bitart (Sensorcaine-Epinephrine Pf 0.5% Inj) 30 ml STK-MED ONCE .ROUTE ; Start 02/12/17 at 17:49; Stop 02/12/17 at 17:50; Status DC Levetriacetam (Keppra Inj) 1,000 mg STK-MED ONCE IV Last administered on 12/8/ 17at 20:05; Start 02/12/17 at 19:53; Stop 02/12/17 at 19:54; Status DC Ondansetron HCl (*ZOFRAN INJ PERIprocedural ONLY) 4 mg STK-MED ONCE .ROUTE Last administered on 02/12/17 21:43; Start 02/12/17 at 21:43; Stop 02/12/17 at 21:44; Status DC Miscellaneous Information ALL NURSING DEPARTME... UNSCH PRN .XX SEE LABEL COMMENTS; Start 02/12/17 at 21:00; Stop 02/13/17 at 20:59; Status DC Promethazine HCl (Phenergan Inj) 25 mg STK-MED ONCE .ROUTE ; Start 02/12/17 at 22:21; Stop 02/12/17 at 22:22; Status DC Cefazolin Sodium 1000 mg/Sodium Chloride 100 ml @ 200 mls/hr Q8H IV Last administered on 02/13/17 15:50; Start 02/13/17 at 00:00; Stop 02/13/17 at 16:29 ; Status DC Levetriacetam 100 ml @ 400 mls/hr Q12H IV Last administered on 02/15/17 13: 13; Start 02/13/17 at 01:00 Levetriacetam (Keppra) 1,000 mg Q12H PO ; Start 02/13/17 at 01:00 Labetalol HCl (Trandate Inj) 10 mg Q2H PRN IV SBP >160 HOLD IF HR < 60 Last administered on 02/13/17 20:34; Start 02/12/17 at 23:45 Ondansetron HCl (Zofran Inj) 4 mg Q6H PRN IV PUSH NAUSEA; Start 02/12/17 at 23: 45 Ondansetron HCl (Zofran Inj) 4 mg Q6H PRN IV PUSH NAUSEA; Start 02/12/17 at 23: 45; Status Cancel Metoprolol Tartrate (Lopressor) 37.5 mg Q6H PO Last administered on 02/15/17 09:19; Start 02/13/17 at 10:00 Atorvastatin Calcium (Lipitor) 10 mg DAILY PO Last administered on 02/15/17 09:20; Start 02/13/17 at 10:00 Miscellaneous (Pill Splitter) 1 ea UNSCH PRN OTHER SEE LABEL COMMENTS; Start 02/13/17 at 10:00 Haloperidol Lactate (Haldol Inj) 5 mg Q4H PRN IV PUSH agitation Last administered on 02/14/17t 16:15; Start 02/13/17 at 11:00 Medical Decision Making MDM Remarks Last [address] 02/14/17 1400 Signed Impressions: Service Date/Time: Tuesday, February 14, 2017 14:14 - CONCLUSION: 1. Small focal intraparenchymal hemorrhage in the high left frontal lobe measuring 9 mm. This is slightly increased in size compared to the prior study. 2. Mild improvement in the mass effect and midline shift to the right compared to the prior study with approximately 4-5 mm of shift. 3. No significant change in the bilateral subdural collections, left greater than right. The bilateral subdural drains remain in place. Jose E Salvador MD Plan Plan Remarks Caprini VTE Risk Assessment Caprini VTE Risk Assessment Caprini VTE Risk Assessment: Mod/High Risk (score >= 2) VTE Pharm Contraindication: Hemorrhage Caprini Risk Assessment Model Point Value = 1 Point Value = 2 Point Value = 3 Point Value = 5 Age 41-60 Minor surgery BMI > 25 kg/m2 Swollen legs Varicose veins or History of unexplained or recurrent spontaneous Oral contraceptives or hormone replacement Sepsis (< 1 month) Serious lung disease, including pneumonia (< 1 month) Abnormal pulmonary function Acute myocardial infarction Congestive heart failure (< 1 month) History of inflammatory bowel disease Medical patient at bed rest Age 61-74 Arthroscopic surgery Major open surgery (> 45 min) Laparoscopic surgery (> 45 min) Malignancy Confined to bed (> 72 hours) Immobilizing plaster cast Central venous access Age >= 75 History of VTE Family history of VTE Factor V Leiden Prothrombin [id number] Lupus anticoagulant Anticardiolipin antibodies Elevated serum homocysteine Heparin-induced thrombocytopenia Other congenital or acquired thrombophilia Stroke (< 1 month) Elective arthroplasty Hip, pelvis, or leg fracture Acute spinal cord injury (< 1 month) Prophylaxis Regimen Total Risk Factor Score Risk Level Prophylaxis Regimen 0-1 Low Early ambulation 2 Moderate Order ONE of the following: *Sequential Compression Device (SCD) *Heparin 5000 units SQ BID 3-4 Higher Order ONE of the following medications: *Heparin 5000 units SQ TID *Enoxaparin/Lovenox 40 mg SQ daily (WT < 150 kg, CrCl > 30 mL/min) *Enoxaparin/Lovenox 30 mg SQ daily (WT < 150 kg, CrCl > 10-29 mL/min) *Enoxaparin/Lovenox 30 mg SQ BID (WT < 150 kg, CrCl > 30 mL/min) AND/OR *Sequential Compression Device (SCD) 5 or more Highest Order ONE of the following medications: *Heparin 5000 units SQ TID (Preferred with Epidurals) *Enoxaparin/Lovenox 40 mg SQ daily (WT < 150 kg, CrCl > 30 mL/min) *Enoxaparin/Lovenox 30 mg SQ daily (WT < 150 kg, CrCl > 10-29 mL/min) *Enoxaparin/Lovenox 30 mg SQ BID (WT < 150 kg, CrCl > 30 mL/min) AND *Sequential Compression Device (SCD) Attending Statement Neuro. S/p bjorn hole. Continue neuro checks Pulmonary. Continue aggressive pulmonary toilette, nasotracheal suction, and breathing treatments with nebulizers. Coumadin anticoagulation. Follow up INR ETOH abuse. Benzodiazepines. Thiamine, folic acid, multivitamins. Watch for alcohol withdrawal signs Nutrition. Tolerating Oral diet Renal. Continue to monitor closely urine output, BUN and creatinine Endocrine. Continue to Monitor serial Acu checks and SSI as needed in detail ID continue to monitor for signs of infection Continue Protonix for stress ulcer prophylaxis Continue Jace hose and SCD's for DVT prophylaxis Further recommendations will be provided depending on the patient's clinical evaluation and follow up studies. Mike Ray MD Feb 15, 2017 13:30
--- NOTE | 2017-02-15 15:06 | HHI.CCPN ---
Subjective Remarks/Hospital Course Hospital Course: Patient is an 81-year-old male with past medical history significant for traumatic subdural hemorrhage, bilateral in December [address] Graff (also was following with Dr. Graff as OP), hypertension, chronic atrial fibrillation who presented to the emergency department with approximately one-week history of headache and feeling that he is falling to the right side, and also double vision. He gives history that he was started on Coumadin [address] scan of head was stable and he was cleared by neurosurgery. Stat CT of the head today showed worsening bilateral subdural hygromas with subacute hemorrhages bilaterally and acute left subdural component with 6 mm left to right subfalcine shift. Neurosurgery Dr. Arzate was immediately contacted who evaluated the patient. INR was 2.2 on arrival. Patient received K Centra and vitamin K emergently I evaluated the patient in the emergency department. He appears in mild-to- moderate distress due to headache. After reversal of his INR is 1.3. Because of the midline shift have ordered 25 g of IV mannitol 1. I discussed with Dr. Arzate. Plan is for OR late evening for drainage of the left subdural collection which is causing MLS. Tight blood pressure control with IV hydralazine when necessary and nicardipine infusion if necessary Subjective: 02/13: more delirious overnight. taken for bjorn hole drainage. still CAM+. restrained this AM. pneumocephalus this morning which is worse. patient denies complaints. 02/14: Improved neurologically. Oriented to person and place. Somewhat oriented times. Discussed with Dr. Arzate. Follow-up CT in the afternoon 02/15: Patient is moderately confused but currently oriented to person and place and somewhat time. Subdural drains removed yesterday. CT stable post. PT seeing patient Objective Vital Signs Date Time Temp Pulse Resp B/P (MAP) Pulse Ox O2 Delivery O2 Flow Rate FiO2 02/15/17 14:00 93 02/15/17 12:00 98.3 26 111/65 (80) 94 02/15/17 07:00 Room Air 2.00 02/13/17 08:56 21 Intake and Output 02/15/17 02/15/17 02/16/17 08:00 16:00 00:00 Intake Total 240 ml 250 ml Output Total 150 ml Balance 90 ml 250 ml Result Diagram: 12/01/225 02/15/[address] of the brain: Worsening bilateral subdural hygromas with subacute hemorrhages bilaterally. Acute component on the left with 6 mm left to right subfalcine shift. Objective Remarks GENERAL: Elderly gentleman who is lying on bed appears in no distress SKIN: Warm and dry. HEAD: Atraumatic. Normocephalic. Subdural drains removed EYES: Pupils equal and round, reactive. No injection or drainage. ENT: Moist mucous membranes. Airway patent NECK: Trachea midline. CARDIOVASCULAR: Atrial fibrillation on the monitor. No murmur appreciated. HR in 70s RESPIRATORY: unlabored. equal chest rise. NC o2. GASTROINTESTINAL: Abdomen soft, non-tender, nondistended. MUSCULOSKELETAL: No obvious deformities. NEUROLOGICAL: Awake and alert. No obvious cranial nerve deficits. No deficits in muscle strength or sensation. Speech normal. Oriented to person and place, some what to time. (knows month and year) A/P Assessment and Plan Assessment: 81yM with bilateral hygromas with worsening midline shift and new acute left-sided SDH taken to OR 02/12 for left bjorn hole decompression. Continue to monitor in ICU. swallow eval and slowly advance diet. Added metoprolol for improved HR control for afib. Neuro exam improving. Subdural drains removed 02/14/17 NEURO: s/p Fall Acute on chronic left more than right bilateral subdural hematoma with 6 mm midline shift TBI with bilateral subdural hemorrhage 01/01/2017 Agitated Delirium s/p left bjorn hole 02/12. Repeat head CT with pneumocephalus, improving hygroma. F/U CT head stable. D/W Dr. Ray today On admission INR reversed with K-Centra and Vit K Keep Na 145-150, started on normal saline. Keppra PO Avoid long-acting sedating meds Restrain PRN for patient safety. May need small dose prn haldol. PT/OT will need IP Rehab RESP: - Aggressive pulmonary toilet - DuoNeb every 6 hours when necessary CV: Atrial fibrillation on chronic Coumadin Status post pacemaker placement Hypertension - Coumadin stopped and INR reversed as above - NS to 75 cc/hr. change to KVO - Metorpolol 37.5 mg po q6h for improved rate control. GI: Dysphagia - swallow eval and slowly advance diet. - IV famotidine - Bowel regimen : - Monitor renal function closely. - no indication for grayson at this time. ID: - Monitor closely for infection, perioperative antibiotics per Dr. Arzate HEME: - Monitor CBC, CMP, INR ENDO: - Electrolyte replacement per protocol PROPH: - Bilateral lower extremity SCDs/TOMÁS. IV famotidine. hold pharmacologic dvt prophylaxis given head bleed. LINES: - Utilize peripheral IV - PT/OT/Speech Dispo: remain in ICU. transfer to if ok with neurosurgery Level 2 Tati Foreman MD Feb 15, 2017 15:06
[2017-02-15] MEDS: DOCUSATE SODIUM 50 MG/SENNA 8.6 MG TAB PO SCH (20:08)
[2017-02-16] VITALS (10 sets, daily range): BP systolic 116–153; BP diastolic 61–90; PULSE 82–104; RESP 16–25; TEMP 97.8–98.3; O2SAT 92–97
[2017-02-16] MEDS: levETIRAcetam 500 MG TAB PO SCH ×3 (00:14→23:32)
[2017-02-16] MEDS: levETIRAcetam INJ 100 ML IV SCH ×3 (00:14→23:32)
[2017-02-16] MEDS: CHLORHEXIDINE GLUCONATE 2 % 1 PACK (2 CLOTHS) TOP SCH (04:00)
[2017-02-16] MEDS: METOPROLOL TARTRATE 25 MG TAB PO SCH ×4 (04:12→20:13)
[2017-02-16] MEDS: DOCUSATE SODIUM 50 MG/SENNA 8.6 MG TAB PO SCH ×2 (09:00→20:13)
[2017-02-16] MEDS: SODIUM CHLORIDE 0.9% FLUSH 10 ML FLUSH IV FLUSH SCH ×2 (09:00→20:14)
[2017-02-16] MEDS: LOSARTAN 50 MG TAB PO SCH (09:00)
[2017-02-16] MEDS: ATORVASTATIN 10 MG TAB PO SCH (09:00)
[2017-02-16] MEDS: FAMOTIDINE 20 MG/2 ML VIAL IV PUSH SCH ×2 (09:00→20:13)
--- NOTE | 2017-02-16 10:32 | HHI.CCPN ---
Subjective Remarks/Hospital Course Hospital Course: Patient is an 81-year-old male with past medical history significant for traumatic subdural hemorrhage, bilateral in December [address] Graff (also was following with Dr. Graff as OP), hypertension, chronic atrial fibrillation who presented to the emergency department with approximately one-week history of headache and feeling that he is falling to the right side, and also double vision. He gives history that he was started on Coumadin [address] scan of head was stable and he was cleared by neurosurgery. Stat CT of the head today showed worsening bilateral subdural hygromas with subacute hemorrhages bilaterally and acute left subdural component with 6 mm left to right subfalcine shift. Neurosurgery Dr. Arzate was immediately contacted who evaluated the patient. INR was 2.2 on arrival. Patient received K Centra and vitamin K emergently I evaluated the patient in the emergency department. He appears in mild-to- moderate distress due to headache. After reversal of his INR is 1.3. Because of the midline shift have ordered 25 g of IV mannitol 1. I discussed with Dr. Arzate. Plan is for OR late evening for drainage of the left subdural collection which is causing MLS. Tight blood pressure control with IV hydralazine when necessary and nicardipine infusion if necessary Subjective: 02/13: more delirious overnight. taken for bjorn hole drainage. still CAM+. restrained this AM. pneumocephalus this morning which is worse. patient denies complaints. 02/14: Improved neurologically. Oriented to person and place. Somewhat oriented times. Discussed with Dr. Arzate. Follow-up CT in the afternoon 02/15: Patient is moderately confused but currently oriented to person and place and somewhat time. Subdural drains removed yesterday. CT stable post. PT seeing patient 02/16: Clinically improving. Walked with PT. Not confused today. Objective Vital Signs Date Time Temp Pulse Resp B/P (MAP) Pulse Ox O2 Delivery O2 Flow Rate FiO2 02/16/17 10:00 83 02/16/17 08:00 97.8 18 146/71 (96) 95 02/16/17 07:00 Nasal Cannula 2.00 02/13/17 08:56 21 Intake and Output 02/16/17 02/16/17 02/17/17 08:00 16:00 00:00 Intake Total 200 ml Balance 200 ml Result Diagram: 02/15/1740402/15/17[address] of the brain: Worsening bilateral subdural hygromas with subacute hemorrhages bilaterally. Acute component on the left with 6 mm left to right subfalcine shift. Objective Remarks GENERAL: Elderly gentleman who is lying on bed appears in no distress SKIN: Warm and dry. HEAD: Atraumatic. Normocephalic. Subdural drains removed EYES: Pupils equal and round, reactive. No injection or drainage. ENT: Moist mucous membranes. Airway patent NECK: Trachea midline. CARDIOVASCULAR: Atrial fibrillation on the monitor. No murmur appreciated. HR in 70s RESPIRATORY: unlabored. equal chest rise. NC o2. GASTROINTESTINAL: Abdomen soft, non-tender, nondistended. MUSCULOSKELETAL: No obvious deformities. NEUROLOGICAL: Awake and alert. No obvious cranial nerve deficits. No deficits in muscle strength or sensation. Speech normal. Oriented to person and place, some what to time. A/P Assessment and Plan Assessment: 81yM with bilateral hygromas with worsening midline shift and new acute left-sided SDH taken to OR 02/12 for left bjorn hole decompression. Continue to monitor in ICU. swallow eval and slowly advance diet. Added metoprolol for improved HR control for afib. Neuro exam improving. Subdural drains removed 02/14/17 NEURO: s/p Fall Acute on chronic left more than right bilateral subdural hematoma with 6 mm midline shift TBI with bilateral subdural hemorrhage 01/01/2017 Agitated Delirium s/p left bjorn hole 02/12. Repeat head CT with pneumocephalus, improving hygroma. F/U CT head stable. D/W Dr. Ray today, transfer to On admission INR reversed with K-Centra and Vit K Keep Na 145-150, started on normal saline. Keppra PO Avoid long-acting sedating meds May need small dose prn haldol. PT/OT will need IP Rehab RESP: - Aggressive pulmonary toilet - DuoNeb every 6 hours when necessary CV: Atrial fibrillation on chronic Coumadin Status post pacemaker placement Hypertension - Coumadin stopped and INR reversed as above - NS to 75 cc/hr. change to KVO - Metorpolol 37.5 mg po q6h for improved rate control. GI: Dysphagia - swallow eval and slowly advance diet. - IV famotidine-change to PO - Bowel regimen : - Monitor renal function closely. - no indication for grayson at this time. ID: - Monitor closely for infection, perioperative antibiotics per Dr. Arzate HEME: - Monitor CBC, CMP, INR ENDO: - Electrolyte replacement per protocol PROPH: - Bilateral lower extremity SCDs/TOMÁS. PO famotidine. hold pharmacologic dvt prophylaxis given head bleed. LINES: - Utilize peripheral IV - PT/OT/Speech Dispo: Transfer to . Hospitalist consulted to assume care in am Level 2 Tati Foreman MD Feb 16, 2017 10:32
--- NOTE | 2017-02-16 10:42 | HHI.NSPN ---
(Sharon Lares) Note Status Status: Progress Note (Sharon Lares) Interval History Interval History Mr Blackwell is an 81-year-old.who has a past medical history significant for atrial fibrillation status post pacemaker placement, and anticoagulation with Coumadin. He suffered a traumatic fall in December 2016. At that time he was found to have subdural hematomas that were treated conservatively. In serial CT imaging, the subdural collections have improved. He was reinitiated on Coumadin 6 days ago. Within the past several days, has had increasing headaches and balance difficulties. His family reports that he lists to the right side. He has had double vision. His last dose of Coumadin was less than 24 hours ago. 02/15. Extubated. Intermittent periods of confusion and agitation. Moves all 4 extremities without deficits. Ambulated with PT 02/16: doing well, ambulating, intermittently confused. denies headaches, nausea , vomiting. (Sharon Lares) Labs, Micro, & Vital Signs Results Date Time Temp Pulse Resp B/P (MAP) Pulse Ox O2 Delivery O2 Flow Rate FiO2 02/16/17 10:00 83 02/16/17 08:00 82 02/16/17 08:00 97.8 94 18 146/71 (96) 95 02/16/17 07:00 95 Nasal Cannula 2.00 02/16/17 06:00 104 02/16/17 04:00 98.0 102 25 132/75 (94) 96 02/16/17 04:00 102 02/16/17 02:00 104 02/16/17 00:00 97.8 94 20 116/61 (79) 92 02/16/17 00:00 94 02/15/17 22:00 94 02/15/17 21:06 96 02/15/17 20:00 98.8 100 23 109/69 (82) 94 02/15/17 20:00 100 02/15/17 19:00 94 Room Air 2.00 02/15/17 18:00 101 02/15/17 16:30 97 Nasal Cannula 2.00 02/15/17 16:00 97.8 81 25 122/83 (96) 95 02/15/17 16:00 81 02/15/17 14:00 93 02/15/17 12:00 98.3 79 26 111/65 (80) 94 02/15/17 12:00 79 Constitutional Vital Signs Date Time Temp Pulse Resp B/P (MAP) Pulse Ox O2 Delivery O2 Flow Rate FiO2 02/16/17 10:00 83 02/16/17 08:00 82 02/16/17 08:00 97.8 94 18 146/71 (96) 95 02/16/17 07:00 95 Nasal Cannula 2.00 02/16/17 06:00 104 02/16/17 04:00 98.0 102 25 132/75 (94) 96 02/16/17 04:00 102 02/16/17 02:00 104 02/16/17 00:00 97.8 94 20 116/61 (79) 92 02/16/17 00:00 94 02/15/17 22:00 94 02/15/17 21:06 96 02/15/17 20:00 98.8 100 23 109/69 (82) 94 02/15/17 20:00 100 02/15/17 19:00 94 Room Air 2.00 02/15/17 18:00 101 02/15/17 16:30 97 Nasal Cannula 2.00 02/15/17 16:00 97.8 81 25 122/83 (96) 95 02/15/17 16:00 81 02/15/17 14:00 93 02/15/17 12:00 98.3 79 26 111/65 (80) 94 02/15/17 12:00 79 (Sharon Lares) Review of Systems Cardiovascular: DENIES: Chest pain Gastrointestinal: DENIES: Nausea, Vomiting Neurologic: DENIES: Headache, Seizures (Sharon Lares) Physical Exam Mr Blackwell is alert, confused, oriented to self. Follows simple commands. Incision is clean and dry with dressing in place. Cranial nerve examination: pupils equal, round, and reactive to light. EOMs are intact with normal convergence. Facial motor function appears normal and symmetrical. Neck: soft, supple Motor: moves all four extremities symmetrically. Deep tendon reflexes are 1+ in the upper and lower extremities. There is a bilateral plantar flexion response. Gait: ambulating with rolling walker and assistance (Sharon Lares) Medications Current Medications Current Medications Medications (Trade) Dose Ordered Sig/Alexa Route PRN Reason Start Time Stop Time Status Last Admin Dose Admin Sodium Chloride (NS Flush) 2 ml UNSCH PRN IV FLUSH FLUSH AFTER USING IV ACCESS 02/12/17 13:15 Sodium Chloride (NS Flush) 2 ml BID IV FLUSH 02/12/17 21:00 02/16/17 09:00 Famotidine (Pepcid Inj) 20 mg Q12HR IV PUSH 02/12/17 21:00 02/16/17 09:00 Albuterol/ Ipratropium (Duoneb Neb) 1 ampule Q2HR NEB PRN INH WHEEZING 02/12/17 13:15 Miscellaneous Information 1 Q361D XX 02/12/17 13:15 02/12/17 13:15 Chlorhexidine Gluconate (Chlorhexidine 2% Cloth) 3 pack Taper DAILY@04 TOP 02/13/17 04:00 02/09/18 03:59 02/16/17 04:00 Chlorhexidine Gluconate (Chlorhexidine 2% Cloth) 3 pack UNSCH PRN TOP HYGIENIC CARE 02/12/17 13:15 Senna/Docusate Sodium (Lilliana-Colace) 1 tab BID PO 02/12/17 21:00 02/14/17 21:15 Magnesium Hydroxide (Milk Of Magnesia Liq) 30 ml Q12H PRN PO Mild constipation 02/12/17 13:15 Sennosides (Senokot) 17.2 mg Q12H PRN PO Moderate constipation 02/12/17 13:15 Bisacodyl (Dulcolax Supp) 10 mg DAILY PRN RECTAL SEVERE CONSITIPATION 02/12/17 13:15 Lactulose (Lactulose Liq) 30 ml DAILY PRN PO SEVERE CONSITIPATION 02/12/17 13:15 Losartan Potassium (Cozaar) 50 mg DAILY PO 02/13/17 09:00 02/16/17 09:00 Nicardipine HCl 25 mg/Sodium Chloride 250 ml @ 50 mls/hr TITRATE PRN IV Blood pressure management 02/12/17 13:30 Hydralazine HCl (Apresoline Inj) 20 mg Q4H PRN IV PUSH SBP >160 02/12/17 13:30 02/14/17 12:13 Potassium Chloride 100 ml @ 50 mls/hr Q2H PRN IV For Potassium 2.8 - 3.2 mEq/L 02/12/17 14:30 Potassium Chloride 100 ml @ 50 mls/hr Q2H PRN IV For Potassium 2.8 - 3.2 mEq/L 02/12/17 14:30 Potassium Bicarb/ Potassium Chloride (K-Lyte Cl Eff) 50 meq UNSCH PRN PO For Potassium 3.3 - 3.5 mEq/L 02/12/17 14:30 Potassium Chloride 100 ml @ 25 mls/hr UNSCH PRN IV For Potassium 3.3 - 3.5 mEq/L 02/12/17 14:30 Potassium Chloride 100 ml @ 50 mls/hr Q2H PRN IV For Potassium 3.3 - 3.5 mEq/L 02/12/17 14:30 Magnesium Sulfate 4 gm/Sodium Chloride 100 ml @ 50 mls/hr UNSCH PRN IV For Magnesium 0.9 - 1.1 mg/dL 02/12/17 14:30 Magnesium Oxide (Mag-Ox) 800 mg UNSCH PRN PO For Magnesium 1.2 - 1.6 mg/dL 02/12/17 14:30 Magnesium Sulfate 2 gm/Sodium Chloride 100 ml @ 50 mls/hr UNSCH PRN IV For Magnesium 1.2 - 1.6 mg/dL 02/12/17 14:30 Potassium Phosphate (K-Phos) 2,000 mg Q4H PRN PO For Phosphorus < 2.5 mg/dL 02/12/17 14:30 Sodium Phosphate 30 mmol/Sodium Chloride 250 ml @ 42 mls/hr UNSCH PRN IV For Phosphorus < 2.5 mg/dL 02/12/17 14:30 Potassium Phosphate (K-Phos) 2,000 mg UNSCH PRN PO/TUBE SEE LABEL COMMENTS 02/12/17 14:30 Potassium Phosphate 30 mmol/ Sodium Chloride 260 ml @ 42 mls/hr UNSCH PRN IV SEE LABEL COMMENTS 02/12/17 14:30 Levetriacetam 100 ml @ 400 mls/hr Q12H IV 02/13/17 01:00 02/15/17 13:13 Levetriacetam (Keppra) 1,000 mg Q12H PO 02/13/17 01:00 02/16/17 00:14 Labetalol HCl (Trandate Inj) 10 mg Q2H PRN IV SBP >160 HOLD IF HR < 60 02/12/17 23:45 02/13/17 20:34 Ondansetron HCl (Zofran Inj) 4 mg Q6H PRN IV PUSH NAUSEA 02/12/17 23:45 Metoprolol Tartrate (Lopressor) 37.5 mg Q6H PO 02/13/17 10:00 02/16/17 10:00 Atorvastatin Calcium (Lipitor) 10 mg DAILY PO 02/13/17 10:00 02/16/17 09:00 Miscellaneous (Pill Splitter) 1 ea UNSCH PRN OTHER SEE LABEL COMMENTS 02/13/17 10:00 Haloperidol Lactate (Haldol Inj) 5 mg Q4H PRN IV PUSH agitation 02/13/17 11:00 02/14/17 16:15 (Sharon Lares) Medical Decision Making MDM Remarks 81 y/o s/p bilateral bjorn hole for evacuation of subdural hematoma by Dr. Arzate 02/12/17 doing well, ambulating, intermittently confused (Sharon Lares) Plan Plan Remarks neuro stable clear to transfer out of [facility], recommend near nursing station cont nonchemical dvt prophylaxis cont physical therapy (Sharon Lares) Attending Statement The exam, history, and the medical decision-making described in the above note were completed with the assistance of the mid-level provider. I reviewed and agree with the findings presented. I attest that I had a [id number] encounter with the patient on the same day, and personally performed and documented my assessment and findings in the medical record. (Mike Ray MD) Sharon Lares Feb 16, 2017 10:42 Mike Ray MD Feb 19, 2017 08:39
[2017-02-17] VITALS (9 sets, daily range): BP systolic 135–176; BP diastolic 70–93; PULSE 62–105; RESP 18–21; TEMP 97.7–98.6; O2SAT 94–98
[2017-02-17] MEDS: CHLORHEXIDINE GLUCONATE 2 % 1 PACK (2 CLOTHS) TOP SCH (03:27)
[2017-02-17] MEDS: METOPROLOL TARTRATE 25 MG TAB PO SCH ×4 (03:27→21:51)
[2017-02-17] MEDS: HALOPERIDOL LACTATE 5 MG/ML AMP IV PUSH PRN (04:52)
[2017-02-17] MEDS: SODIUM CHLORIDE 0.9% FLUSH 10 ML FLUSH IV FLUSH SCH ×2 (09:00→21:00)
--- NOTE | 2017-02-17 09:22 | HHI.PR ---
Subjective Remarks in no acute distress. resting comfortably. noted that was on restraints. denies pain or headache. Objective Vitals Vital Signs Date Time Temp Pulse Resp B/P (MAP) Pulse Ox O2 Delivery O2 Flow Rate FiO2 02/17/17 08:30 98.1 79 20 142/70 (94) 95 02/17/17 06:35 71 141/83 (102) 97 02/17/17 04:00 104 02/17/17 04:00 97.7 105 21 153/75 (101) 96 02/17/17 00:00 97.7 105 21 153/75 (101) 96 02/17/17 00:00 105 02/16/17 21:19 97 2.00 02/16/17 20:00 99 02/16/17 20:00 98.1 99 24 153/88 (109) 96 02/16/17 19:00 97 Nasal Cannula 2.00 02/16/17 16:00 98.2 88 18 139/80 (99) 95 02/16/17 16:00 88 02/16/17 12:00 98.3 82 16 152/90 (110) 97 02/16/17 12:00 82 02/16/17 10:00 83 I/O 02/16/17 02/16/17 02/16/17 02/17/17 02/17/17 02/17/17 07:00 15:00 23:00 07:00 15:00 23:00 Intake Total 200 ml 480 ml Balance 200 ml 480 ml Intake Oral 200 ml 480 ml # Voids 6 5 # Bowel Movements 1 0 Result Diagram: 02/15/17 0405 02/15/17 0405 Imaging Last Impressions Head CT 02/14/17 1400 Signed Impressions: Service Date/Time: Tuesday, February 14, 2017 14:14 - CONCLUSION: 1. Small focal intraparenchymal hemorrhage in the high left frontal lobe measuring 9 mm. This is slightly increased in size compared to the prior study. 2. Mild improvement in the mass effect and midline shift to the right compared to the prior study with approximately 4-5 mm of shift. 3. No significant change in the bilateral subdural collections, left greater than right. The bilateral subdural drains remain in place. Jose E Salvador MD Objective Remarks GENERAL: elderly male, in no apparent distress. CARDIOVASCULAR: Regular rate and regular rhythm without murmurs, gallops, or rubs. RESPIRATORY: Clear to auscultation. Breath sounds equal bilaterally. No wheezes , rales, or rhonchi. GASTROINTESTINAL: Abdomen soft, non-tender, nondistended. Normal, active bowel sounds MUSCULOSKELETAL: Extremities without clubbing, cyanosis, or edema. NEURO: awake and alert- oriented to person and time but not to place. Procedures evacuation of subdural hematoma Medications and IVs Inpatient Medications Albuterol/ Ipratropium (Duoneb Neb) 1 ampule Q2HR NEB PRN INH WHEEZING; Start 02/12/17 at 13:15 Atorvastatin Calcium (Lipitor) 10 mg DAILY PO Last administered on 02/16/17 09:00; Start 02/13/17 at 10:00 Bisacodyl (Dulcolax Supp) 10 mg DAILY PRN RECTAL SEVERE CONSITIPATION; Start 02/12/17 at 13:15 Cefazolin Sodium 1000 mg/Sodium Chloride 100 ml @ 200 mls/hr Q8H IV Last administered on 02/13/17 15:50; Start 02/13/17 at 00:00; Stop 02/13/17 at 16:29 ; Status DC Chlorhexidine Gluconate (Chlorhexidine 2% Cloth) 3 pack UNSCH PRN TOP HYGIENIC CARE; Start 02/12/17 at 13:15 Famotidine (Pepcid Inj) 20 mg Q12HR IV PUSH Last administered on 02/16/17 20: 13; Start 02/12/17 at 21:00 Haloperidol Lactate (Haldol Inj) 5 mg Q4H PRN IV PUSH agitation Last administered on 02/17/17 04:52; Start 02/13/17 at 11:00 Hydralazine HCl (Apresoline Inj) 20 mg Q4H PRN IV PUSH SBP >160 Last administered on 02/14/17 12:13; Start 02/12/17 at 13:30 Labetalol HCl (Trandate Inj) 10 mg Q2H PRN IV SBP >160 HOLD IF HR < 60 Last administered on 02/13/17 20:34; Start 02/12/17 at 23:45 Lactulose (Lactulose Liq) 30 ml DAILY PRN PO SEVERE CONSITIPATION; Start at 13:15 Levetriacetam (Keppra) 1,000 mg Q12H PO Last administered on 02/16/17 23:32; Start 02/13/17 at 01:00 Losartan Potassium (Cozaar) 50 mg DAILY PO Last administered on 02/16/17 09: 00; Start 02/13/17 at 09:00 Magnesium Hydroxide (Milk Of Magngayathri Liq) 30 ml Q12H PRN PO Mild constipation ; Start 02/12/17 at 13:15 Magnesium Oxide (Mag-Ox) 800 mg UNSCH PRN PO For Magnesium 1.2 - 1.6 mg/dL; Start 02/12/17 at 14:30; Stop 02/17/17 at 07:54; Status DC Magnesium Sulfate 2 gm/Sodium Chloride 100 ml @ 50 mls/hr UNSCH PRN IV For Magnesium 1.2 - 1.6 mg/dL; Start 02/12/17 at 14:30; Stop 02/17/17 at 07:54; Status DC Magnesium Sulfate 4 gm/Sodium Chloride 100 ml @ 50 mls/hr UNSCH PRN IV For Magnesium 0.9 - 1.1 mg/dL; Start 02/12/17 at 14:30; Stop 02/17/17 at 07:54; Status DC Mannitol (Mannitol Inj) 25 gm ONCE ONCE IV Last administered on 02/12/17 14: 03; Start 02/12/17 at 13:15; Stop 02/12/17 at 13:55; Status DC Metoprolol Tartrate (Lopressor) 37.5 mg Q6H PO Last administered on 02/17/17 03:27; Start 02/13/17 at 10:00 Miscellaneous (Pill Splitter) 1 ea UNSCH PRN OTHER SEE LABEL COMMENTS; Start 02/13/17 at 10:00 Miscellaneous Information ALL NURSING DEPARTME... UNSCH PRN .XX SEE LABEL COMMENTS; Start 02/12/17 at 21:00; Stop 02/13/17 at 20:59; Status DC Nicardipine HCl 25 mg/Sodium Chloride 250 ml @ 50 mls/hr TITRATE PRN IV Blood pressure management; Start 02/12/17 at 13:30 Ondansetron HCl (Zofran Inj) 4 mg Q6H PRN IV PUSH NAUSEA; Start 02/12/17 at 23: 45 Phytonadione 10 mg/Sodium Chloride 51 ml @ 100 mls/hr ONCE ONCE IV Last administered on 02/12/17 09:09; Start 02/12/17 at 09:00; Stop 02/12/17 at 09:30 ; Status DC Potassium Phosphate (K-Phos) 2,000 mg UNSCH PRN PO/TUBE SEE LABEL COMMENTS; Start 02/12/17 at 14:30; Stop 02/17/17 at 07:54; Status DC Potassium Phosphate 30 mmol/ Sodium Chloride 260 ml @ 42 mls/hr UNSCH PRN IV SEE LABEL COMMENTS; Start 02/12/17 at 14:30; Stop 02/17/17 at 07:54; Status DC Potassium Bicarb/ Potassium Chloride (K-Lyte Cl Eff) 50 meq UNSCH PRN PO For Potassium 3.3 - 3.5 mEq/L; Start 02/12/17 at 14:30; Stop 02/17/17 at 07:54; Status DC Potassium Chloride 100 ml @ 50 mls/hr Q2H PRN IV For Potassium 3.3 - 3.5 mEq/L ; Start 02/12/17 at 14:30; Stop 02/17/17 at 07:54; Status DC Prothrombin Complex Concent (Human) 1500 units/Syringe / Bag 0 ml @ 500 mls/hr ONCE ONCE IV Last administered on 02/12/17 09:19; Start 02/12/17 at 09:30; Stop 02/12/17 at 09:31; Status DC Senna/Docusate Sodium (Lilliana-Colace) 1 tab BID PO Last administered on 20:13; Start 02/12/17 at 21:00 Sennosides (Senokot) 17.2 mg Q12H PRN PO Moderate constipation; Start 02/12/17 at 13:15 Sodium Chloride (NS Flush) 2 ml BID IV FLUSH Last administered on 02/16/17 20 :14; Start 02/12/17 at 21:00 Sodium Phosphate 30 mmol/Sodium Chloride 250 ml @ 42 mls/hr UNSCH PRN IV For Phosphorus < 2.5 mg/dL; Start 02/12/17 at 14:30; Stop 02/17/17 at 07:54; Status DC A/P Problem List: (1) Subacute on chronic subdural hematoma on the left side (2) Midline shift of brain due to hematoma ICD Code: G93.9 - Disorder of brain, unspecified (3) Chronic subdural hematoma on the left side (4) Atrial fibrillation ICD Code: I48.91 - Unspecified atrial fibrillation Status: Acute (5) Intracranial hemorrhage ICD Code: I62.9 - Nontraumatic intracranial hemorrhage, unspecified Status: Acute (6) Hypertension ICD Code: I10 - Essential (primary) hypertension Status: Chronic (7) Hyperlipidemia ICD Code: E78.5 - Hyperlipidemia, unspecified Status: Chronic Assessment and Plan A/P s/p Fall Acute on chronic left more than right bilateral subdural hematoma with 6 mm midline shift TBI with bilateral subdural hemorrhage 01/01/2017 Agitated Delirium s/p left bjorn hole 02/12. Repeat head CT with pneumocephalus, improving hygroma. F/U CT head stable. On admission INR reversed with K-Centra and Vit K Keep Na 145-150, started on normal saline. Keppra PO Avoid long-acting sedating meds PT/OT neurosurgery following. Atrial fibrillation on chronic Coumadin Status post pacemaker placement Hypertension - Coumadin stopped and INR reversed as above - Metorpolol 37.5 mg po q6h for improved rate control. Dysphagia - swallow eval and slowly advance diet. - Bowel regimen PROPH: - Bilateral lower extremity SCDs/TOMÁS. PO famotidine. hold pharmacologic dvt prophylaxis given head bleed. Nory Lopez MD Feb 17, 2017 09:22
[2017-02-17] MEDS: FAMOTIDINE 20 MG/2 ML VIAL IV PUSH SCH ×2 (10:02→21:51)
[2017-02-17] MEDS: LOSARTAN 50 MG TAB PO SCH (10:02)
[2017-02-17] MEDS: ATORVASTATIN 10 MG TAB PO SCH (10:02)
[2017-02-17] MEDS: DOCUSATE SODIUM 50 MG/SENNA 8.6 MG TAB PO SCH ×2 (10:02→21:00)
[2017-02-17] MEDS: levETIRAcetam 500 MG TAB PO SCH (12:45)
[2017-02-17] MEDS: levETIRAcetam INJ 100 ML IV SCH (12:54)
--- NOTE | 2017-02-17 14:22 | HHI.NSPN ---
(Shraon Lares) Note Status Status: Progress Note (Sharon Lares) Interval History Interval History Mr Blackwell is an 81-year-old.who has a past medical history significant for atrial fibrillation status post pacemaker placement, and anticoagulation with Coumadin. He suffered a traumatic fall in December 2016. At that time he was found to have subdural hematomas that were treated conservatively. In serial CT imaging, the subdural collections have improved. He was reinitiated on Coumadin 6 days ago. Within the past several days, has had increasing headaches and balance difficulties. His family reports that he lists to the right side. He has had double vision. His last dose of Coumadin was less than 24 hours ago. 02/15. Extubated. Intermittent periods of confusion and agitation. Moves all 4 extremities without deficits. Ambulated with PT 02/16: doing well, ambulating, intermittently confused. denies headaches, nausea , vomiting. 02/17: awake, alert, confused and intermittently agitated/combative per nursing report on soft restraints. (Sharon Lares) Labs, Micro, & Vital Signs Results Date Time Temp Pulse Resp B/P (MAP) Pulse Ox O2 Delivery O2 Flow Rate FiO2 02/17/17 11:43 98.6 62 20 135/83 (100) 97 02/17/17 08:30 98.1 79 20 142/70 (94) 95 02/17/17 08:00 Nasal Cannula 2.00 21 02/17/17 06:35 71 141/83 (102) 97 02/17/17 04:00 104 02/17/17 04:00 97.7 105 21 153/75 (101) 96 02/17/17 00:00 97.7 105 21 153/75 (101) 96 02/17/17 00:00 105 02/16/17 21:19 97 2.00 02/16/17 20:00 99 02/16/17 20:00 98.1 99 24 153/88 (109) 96 02/16/17 19:00 97 Nasal Cannula 2.00 02/16/17 16:00 98.2 88 18 139/80 (99) 95 02/16/17 16:00 88 02/18/17 07:00 Intake Total 120 ml Balance 120 ml Constitutional Vital Signs Date Time Temp Pulse Resp B/P (MAP) Pulse Ox O2 Delivery O2 Flow Rate FiO2 02/17/17 11:43 98.6 62 20 135/83 (100) 97 02/17/17 08:30 98.1 79 20 142/70 (94) 95 02/17/17 08:00 Nasal Cannula 2.00 21 02/17/17 06:35 71 141/83 (102) 97 02/17/17 04:00 104 02/17/17 04:00 97.7 105 21 153/75 (101) 96 02/17/17 00:00 97.7 105 21 153/75 (101) 96 02/17/17 00:00 105 02/16/17 21:19 97 2.00 02/16/17 20:00 99 02/16/17 20:00 98.1 99 24 153/88 (109) 96 02/16/17 19:00 97 Nasal Cannula 2.00 02/16/17 16:00 98.2 88 18 139/80 (99) 95 02/16/17 16:00 88 02/18/17 07:00 Intake Total 120 ml Balance 120 ml (Sharon Lares) Review of Systems Constitutional: DENIES: Fever Neurologic: DENIES: Headache Psychiatric: COMPLAINS OF: Confusion (Sharon Lares) Physical Exam Mr Blackwell is alert, confused, oriented to self. Follows simple commands. Incision healing well, chelsey intact, no evidence of infection. Cranial nerve examination: pupils equal, round, and reactive to light. EOMs are intact with normal convergence. Facial motor function appears normal and symmetrical. Neck: soft, supple Motor: moves all four extremities symmetrically to command, exam limited due to restraints bilateral plantar flexion response. (Sharon Lares) Medications Current Medications Current Medications Medications (Trade) Dose Ordered Sig/Alexa Route PRN Reason Start Time Stop Time Status Last Admin Dose Admin Sodium Chloride (NS Flush) 2 ml UNSCH PRN IV FLUSH FLUSH AFTER USING IV ACCESS 02/12/17 13:15 Sodium Chloride (NS Flush) 2 ml BID IV FLUSH 02/12/17 21:00 02/17/17 09:00 Famotidine (Pepcid Inj) 20 mg Q12HR IV PUSH 02/12/17 21:00 02/17/17 10:02 Albuterol/ Ipratropium (Duoneb Neb) 1 ampule Q2HR NEB PRN INH WHEEZING 02/12/17 13:15 Miscellaneous Information 1 Q361D XX 02/12/17 13:15 02/12/17 13:15 Chlorhexidine Gluconate (Chlorhexidine 2% Cloth) 3 pack Taper DAILY@04 TOP 02/13/17 04:00 02/09/18 03:59 02/16/17 04:00 Chlorhexidine Gluconate (Chlorhexidine 2% Cloth) 3 pack UNSCH PRN TOP HYGIENIC CARE 02/12/17 13:15 Senna/Docusate Sodium (Lilliana-Colace) 1 tab BID PO 02/12/17 21:00 02/17/17 10:02 Magnesium Hydroxide (Milk Of Magnesia Liq) 30 ml Q12H PRN PO Mild constipation 02/12/17 13:15 Sennosides (Senokot) 17.2 mg Q12H PRN PO Moderate constipation 02/12/17 13:15 Bisacodyl (Dulcolax Supp) 10 mg DAILY PRN RECTAL SEVERE CONSITIPATION 02/12/17 13:15 Lactulose (Lactulose Liq) 30 ml DAILY PRN PO SEVERE CONSITIPATION 02/12/17 13:15 Losartan Potassium (Cozaar) 50 mg DAILY PO 02/13/17 09:00 02/17/17 10:02 Nicardipine HCl 25 mg/Sodium Chloride 250 ml @ 50 mls/hr TITRATE PRN IV Blood pressure management 02/12/17 13:30 Hydralazine HCl (Apresoline Inj) 20 mg Q4H PRN IV PUSH SBP >160 02/12/17 13:30 02/14/17 12:13 Levetriacetam 100 ml @ 400 mls/hr Q12H IV 02/13/17 01:00 02/17/17 12:54 Levetriacetam (Keppra) 1,000 mg Q12H PO 02/13/17 01:00 02/17/17 12:45 Labetalol HCl (Trandate Inj) 10 mg Q2H PRN IV SBP >160 HOLD IF HR < 60 02/12/17 23:45 02/13/17 20:34 Ondansetron HCl (Zofran Inj) 4 mg Q6H PRN IV PUSH NAUSEA 02/12/17 23:45 Metoprolol Tartrate (Lopressor) 37.5 mg Q6H PO 02/13/17 10:00 02/17/17 10:02 Atorvastatin Calcium (Lipitor) 10 mg DAILY PO 02/13/17 10:00 02/17/17 10:02 Miscellaneous (Pill Splitter) 1 ea UNSCH PRN OTHER SEE LABEL COMMENTS 02/13/17 10:00 Ziprasidone (Geodon Inj) 10 mg Q12H PRN IM AGITATION 02/17/17 12:00 (Sharon Lares) Medical Decision Making MDM Remarks 81 y/o s/p bilateral bjorn hole for evacuation of subdural hematoma by Dr. Arzate 02/12/17 doing well, ambulating, intermittently confused, stable neuro examination (Sharon Lares) Plan Plan Remarks cont therapy ok to dc rehab/SNF from [facility] standpoint dc chelsey 02/22/17 (Sharon Lares) Attending Statement The exam, history, and the medical decision-making described in the above note were completed with the assistance of the mid-level provider. I reviewed and agree with the findings presented. I attest that I had a [id number] encounter with the patient on the same day, and personally performed and documented my assessment and findings in the medical record. (Mike Ray MD) Sharon Lares Feb 17, 2017 14:22 Mike Ray MD Feb 19, 2017 12:20
[2017-02-17] MEDS: ZIPRASIDONE MESYLATE 20 MG VIAL IM PRN (18:31)
[2017-02-18] VITALS (10 sets, daily range): BP systolic 155–176; BP diastolic 80–99; PULSE 71–137; RESP 16–20; TEMP 97.2–98.5; O2SAT 95–97
[2017-02-18] MEDS: levETIRAcetam INJ 100 ML IV SCH ×2 (01:00→02:03)
[2017-02-18] MEDS: levETIRAcetam 500 MG TAB PO SCH ×3 (01:00→14:13)
[2017-02-18] MEDS: cloNIDine HCL 0.1 MG TAB PO PRN (01:32)
[2017-02-18] MEDS ORDERED: ENALAPRILAT 2.5 MG/2 ML VIAL IV PUSH ONE (02:00)
[2017-02-18] MEDS: CHLORHEXIDINE GLUCONATE 2 % 1 PACK (2 CLOTHS) TOP SCH (03:41)
[2017-02-18] MEDS: METOPROLOL TARTRATE 25 MG TAB PO SCH ×4 (04:02→21:25)
[2017-02-18 07:30] LABS: AUTOMATED NEUTROPHIL # 5.6 TH/MM3 (1.8-7.7); BASOPHIL % 0.2 % (0.0-2.0); EOSINOPHIL % 0.6 % (0.0-4.0); HEMATOCRIT 37.2 % (39.0-51.0); HEMO FLAGS DIFF FINAL; LYMPH % 7.5 % (9.0-44.0); LYMPHOCYTE # 0.5 TH/MM3 (1.0-4.8); MEAN CELL VOLUME 81.8 FL (80.0-100.0); NEUT % 80.7 % (16.0-70.0); PLATELET COUNT 182 TH/MM3 (150-450); RED BLOOD COUNT 4.55 MIL/MM3 (4.50-5.90); RED CELL DISTRIBUTION WIDTH 14.9 % (11.6-17.2)
[2017-02-18 07:47] LABS: BICARBONATE 27.4 MEQ/L (21.0-32.0); POTASSIUM 3.7 MEQ/L (3.5-5.1)
[2017-02-18] MEDS: LOSARTAN 50 MG TAB PO SCH (08:36)
[2017-02-18] MEDS: FAMOTIDINE 20 MG/2 ML VIAL IV PUSH SCH ×2 (08:36→21:17)
[2017-02-18] MEDS: ATORVASTATIN 10 MG TAB PO SCH (08:36)
[2017-02-18] MEDS: DOCUSATE SODIUM 50 MG/SENNA 8.6 MG TAB PO SCH ×2 (08:36→21:00)
[2017-02-18] MEDS: SODIUM CHLORIDE 0.9% FLUSH 10 ML FLUSH IV FLUSH SCH ×2 (09:00→21:00)
--- NOTE | 2017-02-18 09:03 | HHI.PR ---
Subjective Remarks Pt tells me that he ate his food but they brought in another tray. States he ate half the eggs and part of the biscuit. He denies any pain, Pt when asked, states he thinks he is at [facility], thinks it is in the 1970's. then states ok to many of my questions, mentions dec [birth year] but year 2001 when asked when his bday is. Seems to keep falling asleep Objective Vitals Vital Signs Date Time Temp Pulse Resp B/P (MAP) Pulse Ox O2 Delivery O2 Flow Rate FiO2 02/18/17 08:13 97.2 82 20 155/98 (117) 97 02/18/17 04:00 98.1 81 18 169/86 (113) 97 02/18/17 03:00 161/89 (113) 02/18/17 00:14 98.4 81 18 176/99 (124) 95 02/17/17 22:12 95 Room Air 3.00 02/17/17 20:30 97.9 79 18 176/83 (114) 98 02/17/17 17:46 94 Nasal Cannula 2.00 02/17/17 16:46 97.7 79 20 166/93 (117) 94 02/17/17 11:43 98.6 62 20 135/83 (100) 97 I/O 02/17/17 02/17/17 02/17/17 02/18/17 02/18/17 02/18/17 07:00 15:00 23:00 07:00 15:00 23:00 Intake Total 120 ml 60 ml 160 ml Balance 120 ml 60 ml 160 ml Intake Oral 120 ml 60 ml 60 ml IV Total 100 ml # Voids 5 3 4 # Bowel Movements 0 1 4 Result Diagram: 02/18/17 0650 02/18/17 0650 Imaging Last Impressions Head CT 02/14/17 1400 Signed Impressions: Service Date/Time: Tuesday, February 14, 2017 14:14 - CONCLUSION: 1. Small focal intraparenchymal hemorrhage in the high left frontal lobe measuring 9 mm. This is slightly increased in size compared to the prior study. 2. Mild improvement in the mass effect and midline shift to the right compared to the prior study with approximately 4-5 mm of shift. 3. No significant change in the bilateral subdural collections, left greater than right. The bilateral subdural drains remain in place. Jose E Salvador MD Objective Remarks GENERAL: elderly male, laying in bed, holding urinal CARDIOVASCULAR: Regular rate and regular rhythm without murmurs RESPIRATORY: Clear to auscultation. Breath sounds equal bilaterally. No wheezes GASTROINTESTINAL: Abdomen soft, non-tender, nondistended. Normal, active bowel sounds MUSCULOSKELETAL: Extremities without edema. 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 Repeat head CT with pneumocephalus, improving hygroma. F/U CT head stable. On admission INR reversed with K-Centra and Vit K. INR 1.3 goal is to Keep Na 145-150, on normal saline. Keppra PO, will d/c IV keppra Avoid long-acting sedating meds PT/OT neurosurgery has cleared pt for discharge to rehab. savannah barbosa 02/22/17 Atrial fibrillation on chronic Coumadin Status post pacemaker placement Hypertension - Coumadin stopped and INR reversed as above - Metorpolol 37.5 mg po q6h for improved rate control. - added amlodipine 5mg po daily for better BP control. Dysphagia - swallow eval and slowly advance diet. - Bowel regimen PROPH: - Bilateral lower extremity SCDs/TOMÁS. PO famotidine. hold pharmacologic dvt prophylaxis given head bleed. Discharge Planning Pt will need rehab. will discuss w CM regarding d/c planning. Pt currently off restraints Erika Ontiveros MD Feb 18, 2017 09:03
[2017-02-18] MEDS: amLODIPine BESYLATE 5 MG TAB PO SCH (10:33)
[2017-02-18] MEDS: ZIPRASIDONE MESYLATE 20 MG VIAL IM PRN (17:56)
[2017-02-19] VITALS (9 sets, daily range): BP systolic 149–170; BP diastolic 83–92; PULSE 78–99; RESP 16–20; TEMP 97.2–98.8; O2SAT 92–97
[2017-02-19] MEDS: levETIRAcetam 500 MG TAB PO SCH ×2 (00:42→13:22)
[2017-02-19] MEDS: cloNIDine HCL 0.1 MG TAB PO PRN ×2 (03:25→23:10)
[2017-02-19] MEDS: CHLORHEXIDINE GLUCONATE 2 % 1 PACK (2 CLOTHS) TOP SCH (03:35)
[2017-02-19] MEDS: METOPROLOL TARTRATE 25 MG TAB PO SCH ×4 (03:36→21:07)
[2017-02-19] MEDS: LOSARTAN 50 MG TAB PO SCH (09:05)
[2017-02-19] MEDS: amLODIPine BESYLATE 5 MG TAB PO SCH (09:05)
[2017-02-19] MEDS: DOCUSATE SODIUM 50 MG/SENNA 8.6 MG TAB PO SCH ×2 (09:05→21:00)
[2017-02-19] MEDS: SODIUM CHLORIDE 0.9% FLUSH 10 ML FLUSH IV FLUSH SCH ×2 (09:06→21:08)
[2017-02-19] MEDS: FAMOTIDINE 20 MG/2 ML VIAL IV PUSH SCH ×2 (09:06→21:07)
[2017-02-19] MEDS: ATORVASTATIN 10 MG TAB PO SCH (09:06)
--- NOTE | 2017-02-19 13:14 | HHI.PR ---
Subjective Remarks Pt states he feels better. ate some of his breakfast. denies any pain at this time, no nausea or vomiting. friend/neighbor at bedside discussed w RN, pt ate 50% of his food today. Objective Vitals Vital Signs Date Time Temp Pulse Resp B/P (MAP) Pulse Ox O2 Delivery O2 Flow Rate FiO2 02/19/17 12:31 98.1 94 18 155/87 (109) 97 02/19/17 08:45 98.8 79 18 165/84 (111) 95 02/19/17 04:41 97.2 86 18 170/91 (117) 94 02/19/17 02:39 78 02/19/17 00:38 97.8 99 16 163/92 (115) 92 02/18/17 21:11 98.5 71 16 166/80 (108) 95 02/18/17 20:30 92 Nasal Cannula 3.00 02/18/17 18:08 137 02/18/17 17:05 98.2 86 18 167/90 (115) 95 02/18/17 13:40 96 Nasal Cannula 2.00 I/O 02/18/17 02/18/17 02/18/17 02/19/17 02/19/17 02/19/17 07:00 15:00 23:00 07:00 15:00 23:00 Intake Total 160 ml 240 ml Balance 160 ml 240 ml Intake Oral 60 ml 240 ml IV Total 100 ml # Voids 4 2 1 1 # Bowel Movements 4 0 1 Result Diagram: 02/18/17 0650 02/18/17 0650 Imaging Last Impressions Head CT 02/14/17 1400 Signed Impressions: Service Date/Time: Tuesday, February 14, 2017 14:14 - CONCLUSION: 1. Small focal intraparenchymal hemorrhage in the high left frontal lobe measuring 9 mm. This is slightly increased in size compared to the prior study. 2. Mild improvement in the mass effect and midline shift to the right compared to the prior study with approximately 4-5 mm of shift. 3. No significant change in the bilateral subdural collections, left greater than right. The bilateral subdural drains remain in place. Jose E Salvador MD Objective Remarks GENERAL: elderly male, laying in bed CARDIOVASCULAR: irregularly irregular RESPIRATORY: Clear to auscultation. Breath sounds equal bilaterally. No wheezes GASTROINTESTINAL: Abdomen soft, non-tender, nondistended. Normal, active bowel sounds MUSCULOSKELETAL: Extremities without edema. 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 Repeat head CT with pneumocephalus, improving hygroma. F/U CT head stable. On admission INR reversed with K-Centra and Vit K. INR 1.3 goal is to Keep Na 145-150. Keppra PO. s/p IV keppra Avoid long-acting sedating meds PT/OT neurosurgery has cleared pt for discharge to rehab. savannah barbosa 02/22/17 Atrial fibrillation on chronic Coumadin Status post pacemaker placement Hypertension - Coumadin stopped and INR reversed as above - Metorpolol 37.5 mg po q6h for improved rate control. - amlodipine 5mg po daily for better BP control. Dysphagia - swallow eval and slowly advance diet. - Bowel regimen PROPH: - Bilateral lower extremity SCDs/TOMÁS. PO famotidine. hold pharmacologic dvt prophylaxis given head bleed. Discharge Planning Pt will need rehab. will discuss w CM regarding d/c planning. Pt has been off restraints Monitor pt's PO intake as yesterday he didn't eat anything. Today he ate about 50% of his breakfast. Will add ensure supplements Anticipate d/c tomorrow. Erika Ontiveros MD Feb 19, 2017 13:14
[2017-02-20] VITALS (9 sets, daily range): BP systolic 116–162; BP diastolic 75–95; PULSE 64–96; RESP 16–19; TEMP 97.3–98.5; O2SAT 95–98
[2017-02-20] MEDS: levETIRAcetam 500 MG/5 ML UDC PO SCH ×2 (02:26→12:55)
[2017-02-20] MEDS: CHLORHEXIDINE GLUCONATE 2 % 1 PACK (2 CLOTHS) TOP SCH (02:36)
[2017-02-20] MEDS: METOPROLOL TARTRATE 25 MG TAB PO SCH ×3 (05:41→18:15)
[2017-02-20] MEDS: LOSARTAN 50 MG TAB PO SCH (08:35)
[2017-02-20] MEDS: DOCUSATE SODIUM 50 MG/SENNA 8.6 MG TAB PO SCH ×2 (08:35→20:38)
[2017-02-20] MEDS: amLODIPine BESYLATE 5 MG TAB PO SCH (08:36)
[2017-02-20] MEDS: SODIUM CHLORIDE 0.9% FLUSH 10 ML FLUSH IV FLUSH SCH ×2 (08:36→20:38)
[2017-02-20] MEDS: FAMOTIDINE 20 MG/2 ML VIAL IV PUSH SCH ×2 (08:36→20:38)
[2017-02-20] MEDS: ATORVASTATIN 10 MG TAB PO SCH (08:36)
[2017-02-20] MEDS ORDERED: LORazepam 1 MG TAB PO PRN (12:15)
--- NOTE | 2017-02-20 18:08 | RADRPT ---
EXAM DATE/TIME: 02/20/2017 17:48 [facility] COMPARISON: CT BRAIN W/O CONTRAST, February 14, 2017, 14:14. INDICATIONS : Intracerebral hemorrhage. RADIATION DOSE: 47.84 CTDIvol (mGy) MEDICAL HISTORY : Cardiovascular disease. Hypertension. Carcinoma, prostate. SURGICAL HISTORY : Appendectomy. ENCOUNTER: Initial ACUITY: 1 day PAIN SCALE: 4/10 LOCATION: cranial TECHNIQUE: Multiple contiguous axial images were obtained of the head. Using automated exposure control and adj ustment of the mA and/or kV according to patient size, radiation dose was kept as low as reasonably a chievable to obtain optimal diagnostic quality images. DICOM format image data is available electro nically for review and comparison. FINDINGS: Previous subdural drains have been removed. Bilateral subdural hematomas remain measuring up to about 1.6 cm on the left side anteriorly and 1.2 cm on the right side anteriorly, not significantly change d prior exam. There is mild pneumocephalus. Focal parenchymal hemorrhage superior aspect left frontal lobe. There is also some scattered subarachnoid hemorrhage. No hydrocephalus. CONCLUSION: 1. Relatively stable bilateral subdural hematomas compared with prior exam. These are mostly chronic with a small acute component bilaterally. Previous subdural drains have been removed. Parenchymal hem orrhage is evolving. Small amount of residual subarachnoid hemorrhage. No significant midline shift. Alexander Rizvi MD on February 20, 2017 at 18:01 Board Certified Radiologist. This report was verified electronically.
--- NOTE | 2017-02-20 19:47 | HHI.PR ---
Subjective Remarks Pt has no complaints. He is able to make conversation, but a bit disoriented due to ICH. Objective Vital Signs Date Time Temp Pulse Resp B/P (MAP) Pulse Ox O2 Delivery O2 Flow Rate FiO2 02/20/17 16:00 97.4 64 18 161/85 (110) 96 02/20/17 12:00 98.2 85 18 116/75 (89) 97 02/20/17 08:28 96 Nasal Cannula 2.00 02/20/17 08:00 97.3 87 18 162/81 (108) 98 02/20/17 07:00 Nasal Cannula 3.00 02/20/17 05:58 96 02/20/17 05:34 98.2 89 16 149/87 (107) 96 02/20/17 00:19 98.5 83 18 162/95 (117) 95 02/19/17 21:50 95 Nasal Cannula 2.00 02/19/17 20:41 98.5 93 16 153/89 (110) 96 I/O 02/19/17 02/19/17 02/19/17 02/20/17 02/20/17 02/20/17 07:00 15:00 23:00 07:00 15:00 23:00 Intake Total 480 ml Output Total 300 ml Balance 180 ml Intake Oral 480 ml Output Urine Total 300 ml # Voids 1 4 3 # Bowel Movements 0 1 1 0 Result Diagram: 02/18/17 0650 02/18/17 0650 Objective Remarks GENERAL: Thin elderly man. SKIN: Warm and dry. HEAD: Normocephalic. EYES: No scleral icterus. No injection or drainage. NECK: Supple, trachea midline. No JVD or lymphadenopathy. CARDIOVASCULAR: Regular rate and rhythm without murmurs, gallops, or rubs. RESPIRATORY: Breath sounds equal bilaterally. No accessory muscle use. GASTROINTESTINAL: Abdomen soft, non-tender, nondistended. MUSCULOSKELETAL: No cyanosis, or edema. BACK: Nontender without obvious deformity. No CVA tenderness. EXTREMITIES: no edema Assessment and Plan Problem List: (1) Intracranial hemorrhage ICD Codes: I62.9 - Nontraumatic intracranial hemorrhage, unspecified Status: Acute (2) Hypertension ICD Codes: I10 - Essential (primary) hypertension Status: Chronic Assessment and Plan Agitated Delirium s/p Fall s/p left bjorn hole 02/12. Repeat head CT with pneumocephalus, improving hygroma. Acute on chronic left more than right bilateral subdural hematoma with 6 mm midline shift TBI with bilateral subdural hemorrhage 01/01/2017 F/U CT today shows some possible new hemorrhage (slight) On admission INR reversed with K-Centra and Vit K. INR 1.3 goal is to Keep Na 145-150. Keppra PO. s/p IV keppra Avoid long-acting sedating meds neurosurgery has cleared pt for discharge to rehab. dc chelsey 02/22/17 Continue PT/OT Atrial fibrillation on chronic Coumadin Status post pacemaker placement Hypertension - Coumadin stopped and INR reversed as above - Metorpolol 37.5 mg po q6h for improved rate control. - amlodipine 5mg po daily for better BP control. Dysphagia - swallow eval and slowly advance diet. - Bowel regimen DVT and GI prophylaxis - Bilateral lower extremity SCDs/TOMÁS. PO famotidine. hold pharmacologic dvt prophylaxis given head bleed. Discharge Planning Pt will need rehab. PO Intake has been unimpressive Olegario Gan MD Feb 20, 2017 19:47
[2017-02-21] VITALS (7 sets, daily range): BP systolic 125–157; BP diastolic 74–79; PULSE 83–101; RESP 16–20; TEMP 97.7–98.4; O2SAT 92–99
[2017-02-21] MEDS: METOPROLOL TARTRATE 25 MG TAB PO SCH ×3 (01:19→12:59)
[2017-02-21] MEDS: levETIRAcetam 500 MG/5 ML UDC PO SCH ×2 (01:20→13:05)
[2017-02-21] MEDS: CHLORHEXIDINE GLUCONATE 2 % 1 PACK (2 CLOTHS) TOP SCH (03:31)
[2017-02-21] MEDS: SODIUM CHLORIDE 0.9% FLUSH 10 ML FLUSH IV FLUSH SCH (07:54)
[2017-02-21] MEDS: FAMOTIDINE 20 MG/2 ML VIAL IV PUSH SCH (08:00)
[2017-02-21] MEDS: LOSARTAN 50 MG TAB PO SCH (08:02)
[2017-02-21] MEDS: ATORVASTATIN 10 MG TAB PO SCH (08:02)
[2017-02-21] MEDS: amLODIPine BESYLATE 5 MG TAB PO SCH (08:02)
[2017-02-21] MEDS: DOCUSATE SODIUM 50 MG/SENNA 8.6 MG TAB PO SCH (08:02)
[2017-02-21] MEDS ORDERED: PERI PO (12:48)
[2017-02-21] MEDS ORDERED: CLON.1 PO (12:48)
[2017-02-21] MEDS ORDERED: LEVE500S PO (12:48)
[2017-02-21] MEDS ORDERED: METO25TA3 PO (12:48)
--- NOTE | 2017-02-21 12:59 | HHI.DS ---
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 Diagnosis: Principal (4) Atrial fibrillation ICD Code: I48.91 - Unspecified atrial fibrillation Diagnosis: Secondary Status: Acute (5) Intracranial hemorrhage ICD Code: I62.9 - Nontraumatic intracranial hemorrhage, unspecified Diagnosis: Secondary Status: Acute (6) Hypertension ICD Code: I10 - Essential (primary) hypertension Diagnosis: Secondary Status: Chronic (7) Hyperlipidemia ICD Code: E78.5 - Hyperlipidemia, unspecified Diagnosis: Secondary Status: Chronic Procedures evacuation of subdural hematoma Brief History - From Admission Patient is an 81-year-old male with past medical history significant for traumatic subdural hemorrhage, bilateral in December [address] Graff (also was following with Dr. Graff as OP), hypertension, chronic atrial fibrillation who presented to the emergency department with approximately one-week history of headache and feeling that he is falling to the right side, and also double vision. He gives history that he was started on Coumadin [address] scan of head was stable and he was cleared by neurosurgery. Stat CT of the head today showed worsening bilateral subdural hygromas with subacute hemorrhages bilaterally and acute left subdural component with 6 mm left to right subfalcine shift. Neurosurgery Dr. Arzate was immediately contacted who evaluated the patient. INR was 2.2 on arrival. Patient received K Centra and vitamin K emergently I evaluated the patient in the emergency department. He appears in mild-to- moderate distress due to headache. After reversal of his INR is 1.3. Because of the midline shift have ordered 25 g of IV mannitol 1. I discussed with Dr. Arzate. Plan is for OR late evening for drainage of the left subdural collection which is causing MLS. Tight blood pressure control with IV hydralazine when necessary and nicardipine infusion if necessary CBC/BMP: 02/18/17 0650 02/18/17 0650 PE at Discharge GENERAL: elderly male, laying in bed CARDIOVASCULAR: irregularly irregular RESPIRATORY: Clear to auscultation. Breath sounds equal bilaterally. No wheezes GASTROINTESTINAL: Abdomen soft, non-tender, nondistended. Normal, active bowel sounds MUSCULOSKELETAL: Extremities without edema. NEURO: more awake today, still somewhat confused at times Hospital Course Recurrence of intracranial hemorrhage in the presence of restarting coumadin. He had a bjorn hole evacuation of clot by neurosurgery, subsequently did well enough to graduate from the ICU. He has remained stable. Repeat CT shows no increase in size of hematoma. He must not take coumadin again given his recurrent ICH. Pt Condition on Discharge: Fair Discharge Disposition: Discharge to SNF Discharge Time: > 30 minutes Discharge Instructions DIET: Follow Instructions for: Low Sodium Diet Speech Therapy-Diet Recommends: Regular Activities you can perform: Weight Bearing as Sapna Other Activity Instructions: For any mental status decline, return to the hospital immediately for CT of the brain to rule out bleeding. Olegario Gan MD Feb 21, 2017 12:59
[2017-02-21] MEDS ORDERED: LORA-474 PO (15:16)
== END 2017-02-21 17:33 | DRG 27 ==
LOC: NEPC 07:55 → NEDA 10:14 → N03A 12:38 → N03B 22:31 → N05A 02-17 06:32
PROVIDERS: ADMIT Internal Medicine; ATTEND Family Medicine
PROC: 00C43ZZ Extirpation of Matter from Intracranial Subdural Space, Percutaneous Approach (ICD-10-PCS; principal; 2017-02-12 19:46)
DX: S06.5X0A Traumatic subdural hemorrhage without loss of consciousness, initial encounter (principal); I48.2 Chronic atrial fibrillation; Z79.01 Long term (current) use of anticoagulants; R13.10 Dysphagia, unspecified; I10 Essential (primary) hypertension; R41.0 Disorientation, unspecified; R45.1 Restlessness and agitation; E78.5 Hyperlipidemia, unspecified; R42 Dizziness and giddiness; H53.2 Diplopia; Z95.0 Presence of cardiac pacemaker; W19.XXXA Unspecified fall, initial encounter; Z85.46 Personal history of malignant neoplasm of prostate
CPT/HCPCS: 70450; 80048; 80053; 83735; 84100; 85025; 85610; 85730; 86850; 86900; 86901; 87641; 96365; 96368; C9132; J0360; J0690; J1100; J1580; J1630; J1953; J2150; J2370; J2405; J2550; J2710; J3010; J3430; J3486; J7030

== ENCOUNTER 2017-07-03 17:57 | Inpatient (IN) | payer MEDICARE, BC ==
[~2017-07-03] VITALS: Ht 165.1 cm; Wt 60.0 kg
[~2017-07-03 17:57] MED LIST changes: +CLON.1 PO; -LACTCAP8 PO; +LEVE500S PO; +LORA-474 PO; +METO25TA3 PO; +PERI PO
[2017-07-03 18:07] VITALS: BP 140/80; PULSE 90; RESP 18; O2SAT 97
[2017-07-03 18:15] VITALS: BP 140/80; PULSE 91; RESP 18; O2SAT 97
[2017-07-03 18:17] VITALS: BP 140/80; PULSE 91; RESP 18; O2SAT 97
--- NOTE | 2017-07-03 18:30 | PD ---
HPI Chief Complaint: Altered Mental Status Time Seen by Provider: 18:07 Travel History International Travel<30 days: No Contact w/Intl Traveler<30days: No Traveled to known affect area: No History of Present Illness HPI 81-year-old male that presents to the ED for evaluation of altered mental status. Per ambulance report apparently since 9:00 patient has been acting somewhat more confused. Patient apparently had right facial droop around this time and unclear as to the reason but patient was brought here now. Patient apparently gets 24-hour care at his home. Patient has significant history of seizures, previous head bleeds last one last year. Patient denies falling or injuries. Patient denies any pain. He does have a Galaviz catheter and is currently being treated for UTI with gentamicin. He appears to be somewhat confused but able to answer most questions appropriately. Patient denies any chest pain or shortness of breath. He states that he has a Galaviz in place. He denies any fevers chills or sweats. No urinary or bowel movement issues. Has no allergies to medication. Patient seems to be aware as to why he was brought here. He does have a history of atrial fibrillation. Per patient he does not take any blood thinners. PFSH Past Medical History Hx Anticoagulant Therapy: Yes (COUMADIN) Atrial Fibrillation: Yes Heart Rhythm Problems: Yes (Afib) Cancer: Yes (Prostate cancer. ) Cardiovascular Problems: Yes High Cholesterol: Yes (well managed) Chemotherapy: No Chest Pain: No Congestive Heart Failure: No Cerebrovascular Accident: No Diminished Hearing: Yes Endocrine: No Genitourinary: No Hypertension: Yes Immune Disorder: No Implanted Vascular Access Dvce: Yes Musculoskeletal: No Neurologic: Yes (tingling in fingers occasionally. ) Psychiatric: No Reproductive: No Respiratory: No Migraines: No Radiation Therapy: Yes Seizures: No Tetanus Vaccination: < 5 Years Influenza Vaccination: Yes Past Surgical History Abdominal Surgery: No AICD: No Appendectomy: Yes Arteriovenous Shunt: No Cardiac Surgery: Yes (stent, carotid, pacemaker) Ear Surgery: No Endocrine Surgery: No Eye Surgery: No Genitourinary Surgery: No Gynecologic Surgery: No Insulin Pump: No Joint Replacement: No Oral Surgery: No Pacemaker: Yes Thoracic Surgery: No Other Surgery: Yes (left carotid endarterectomy) Social History Alcohol Use: No Tobacco Use: No Substance Use: No Allergies-Medications (Allergen,Severity, Reaction): Coded Allergies: No Known Allergies (Unverified Allergy, Unknown, 07/03/17) Reported Meds & Prescriptions Reported Meds & Active Scripts Active Keppra Liq (Levetiracetam) 500 Mg/5 Ml Soln 1,000 Mg PO Q12H 30 Days Reported Metoprolol Tartrate 25 Mg Tab 12.5 Mg PO DAILY Atorvastatin (Atorvastatin Calcium) 10 Mg Tab 10 Mg PO HS Escitalopram (Escitalopram Oxalate) 5 Mg Tab 5 Mg PO DAILY Gentamicin Inj (Gentamicin Sulfate) 40 Mg/Ml Inj 80 Mg IM Review of Systems Except as stated in HPI: all other systems reviewed are Neg Physical Exam Narrative GENERAL: SKIN: Warm and dry. HEAD: Atraumatic. Normocephalic. EYES: Pupils equal and round 4 mm reactive to light and accommodation. No scleral icterus. No injection or drainage. ENT: No nasal bleeding or discharge. Mucous membranes pink and moist. Tongue is midline. No uvula deviation. NECK: Trachea midline. No JVD. CARDIOVASCULAR: Regular rate and rhythm. No murmurs, S3, S4. RESPIRATORY: No accessory muscle use. Clear to auscultation. Breath sounds equal bilaterally. GASTROINTESTINAL: Abdomen soft, non-tender, nondistended. Hepatic and splenic margins not palpable. MUSCULOSKELETAL: Extremities without clubbing, cyanosis, or edema. No obvious deformities. Full range of motion of the upper and lower extremities bilaterally. 2+ pulses bilaterally. Patient does have some weakness on the right side compared to the left. No lumbar, thoracic, cervical spine tenderness to palpation. NEUROLOGICAL: Awake and alert. No obvious cranial nerve deficits. Motor grossly within normal limits. Five out of 5 muscle strength in the arms and legs. Normal speech. PSYCHIATRIC: Appropriate mood and affect; insight and judgment normal. Data Data Last Documented VS Vital Signs Date Time Temp Pulse Resp B/P (MAP) Pulse Ox O2 Delivery O2 Flow Rate FiO2 07/03/17 19:40 88 18 147/81 (103) 97 Room Air 07/03/17 18:33 97.4 Orders Orders Electrocardiogram (07/03/17 18:12) Complete Blood Count With Diff (07/03/17 18:12) Comprehensive Metabolic Panel (07/03/17 18:12) Ckmb (Isoenzyme) Profile (07/03/17 18:12) Troponin I (07/03/17 18:12) Prothrombin Time / Inr (Pt) (07/03/17 18:12) Act Partial Throm Time (Ptt) (07/03/17 18:12) Blood Culture (07/03/17 18:12) Urinalysis - C+S If Indicated (07/03/17 18:12) Magnesium (Mg) (07/03/17 18:12) Thyroid Stimulating Hormone (07/03/17 18:12) Chest, Single Ap (07/03/17 18:12) Iv Access Insert/Monitor (07/03/17 18:12) Ecg Monitoring (07/03/17 18:12) Oximetry (07/03/17 18:12) Lactic Acid Sepsis Protocol (07/03/17 18:12) Levetiracetam (07/03/17 18:14) Ct Brain W/O Iv Contrast(Rout) (07/03/17 ) Urine Culture (07/03/17 18:25) Labs Laboratory Tests Test 07/03/17 18:25 07/03/17 19:55 White Blood Count 6.6 TH/MM3 Red Blood Count 5.43 MIL/MM3 Hemoglobin 13.6 GM/DL Hematocrit 41.5 % Mean Corpuscular Volume 76.5 FL Mean Corpuscular Hemoglobin 25.1 PG Mean Corpuscular Hemoglobin Concent 32.8 % Red Cell Distribution Width 17.3 % Platelet Count 163 TH/MM3 Mean Platelet Volume 7.7 FL Neutrophils (%) (Auto) 68.9 % Lymphocytes (%) (Auto) 18.9 % Monocytes (%) (Auto) 9.3 % Eosinophils (%) (Auto) 2.5 % Basophils (%) (Auto) 0.4 % Neutrophils # (Auto) 4.5 TH/MM3 Lymphocytes # (Auto) 1.2 TH/MM3 Monocytes # (Auto) 0.6 TH/MM3 Eosinophils # (Auto) 0.2 TH/MM3 Basophils # (Auto) 0.0 TH/MM3 CBC Comment DIFF FINAL Differential Comment Prothrombin Time 12.6 SEC Prothromb Time International Ratio 1.2 RATIO Activated Partial Thromboplast Time 24.7 SEC Urine Color YELLOW Urine Turbidity CLOUDY Urine pH 6.0 Urine Specific [place] 1.020 Urine Protein 100 mg/dL Urine Glucose (UA) NEG mg/dL Urine Ketones NEG mg/dL Urine Occult Blood MOD Urine Nitrite NEG Urine Bilirubin NEG Urine Urobilinogen 2.0 MG/DL Urine Leukocyte Esterase LARGE Urine RBC 154 /hpf Urine WBC /hpf Urine WBC Clumps MANY Urine Bacteria MOD /hpf Urine Mucus MOD /lpf Microscopic Urinalysis Comment CULTURE INDICATED Lactic Acid Level 1.5 mmol/L Blood Urea Nitrogen 16 MG/DL Creatinine 0.71 MG/DL Random Glucose 67 MG/DL Total Protein 4.9 GM/DL Albumin 2.3 GM/DL Calcium Level 7.1 MG/DL Magnesium Level 1.7 MG/DL Alkaline Phosphatase 54 U/L Aspartate Amino Transf (AST/SGOT) 17 U/L Alanine Aminotransferase (ALT/SGPT) 23 U/L Total Bilirubin 1.1 MG/DL Sodium Level 147 MEQ/L Potassium Level 3.2 MEQ/L Chloride Level 117 MEQ/L Carbon Dioxide Level 21.0 MEQ/L Anion Gap 9 MEQ/L Estimat Glomerular Filtration Rate 106 ML/MIN Protein Corrected Calcium 8.3 MG/DL Total Creatine Kinase 89 U/L Troponin I 0.02 NG/ML Thyroid Stimulating Hormone 3rd Gen 2.080 uIU/ML MDM Medical Decision Making Medical Screen Exam Complete: Yes Emergency Medical Condition: Yes Medical Record Reviewed: Yes Interpretation(s) CBC & BMP Diagram 07/03/17 18:25 07/03/17 19:55 Total Protein 4.9 L, Albumin 2.3 L, Calcium Level 7.1 *L, Magnesium Level 1.7, Alkaline Phosphatase 54, Aspartate Amino Transf (AST/SGOT) 17, Alanine Aminotransferase (ALT/SGPT) 23, Total Bilirubin 1.1 H UA shows UTI EKG shows atrial fibrillation with no sign of acute ischemia otherwise. Read by me and attending. Troponin and CK-MB negative. Last Impressions Chest X-Ray 07/03/17 1812 Signed Impressions: Service Date/Time: Monday, July 03, 2017 18:25 - CONCLUSION: No acute disease. Diomedes Landers MD Head CT 07/03/17 0000 Signed Impressions: Service Date/Time: Monday, July 03, 2017 19:15 - CONCLUSION: 1. Tiny left-sided hygroma. 2. Cerebral atrophy. Diomedes Landers MD Differential Diagnosis ICH versus CVA versus sepsis versus neuropathy versus neurological disease versus failed outpatient treatment versus altered mental status Narrative Course 81-year-old male that presents to the ED for evaluation of altered mental status. Patient was properly examined and was found to have signs and symptoms of unclear etiology but concerning for CVA versus ICH. Labs and imaging ordered. Labs and imaging were done and were essentially unremarkable alert and what appears to be UTI. Question whether patient has resistance as patient has a Galaviz. Patient has been given gentamicin shots with minimal improvement of this and wonder if this is becoming worse. I was able to talk to caregiver was able to give more information. Apparently patient has been more confused and not been able to ambulate since today. No injuries or falls. Patient is somewhat confused already but today was more significant. Case discussed with my attending who agrees with plan. Patient will be admitted for further eval. Case discussed with Dr. Elliott who agrees to admission. Diagnosis Primary Impression: Altered mental status Qualified Codes: R41.82 - Altered mental status, unspecified Additional Impressions: UTI (urinary tract infection) Qualified Codes: N30.00 - Acute cystitis without hematuria Failure of outpatient treatment Admitting Information Admitting Physician Requests: Observation Navin Hartman Jul 03, 2017 18:30
[2017-07-03 18:33] VITALS: TEMP 97.4
--- NOTE | 2017-07-03 18:46 | RADRPT ---
EXAM DATE/TIME: 07/03/2017 18:25 [facility] COMPARISON: CHEST SINGLE AP, March 31, 2016, 14:43. INDICATIONS : Possible heart attack. Shortness of breath. MEDICAL HISTORY : Chronic obstructive pulmonary disease. Hypertension SURGICAL HISTORY : Pacemaker. Stents. ENCOUNTER: Initial ACUITY: 1 day PAIN SCORE: 0/10 LOCATION: Bilateral chest FINDINGS: A single view of the chest demonstrates minimal bibasilar atelectasis. Pacemaker with single intact l ead. The cardiomediastinal contours are unremarkable. Osseous structures are intact. CONCLUSION: No acute disease. Diomedes Landers MD on July 03, 2017 at 18:42 Board Certified Radiologist. This report was verified electronically.
[2017-07-03 18:47] LABS: AUTOMATED NEUTROPHIL # 4.5 TH/MM3 (1.8-7.7); BASOPHIL % 0.4 % (0.0-2.0); EOSINOPHIL # 0.2 TH/MM3 (0-0.4); EOSINOPHIL % 2.5 % (0.0-4.0); HEMATOCRIT 41.5 % (39.0-51.0); HEMOGLOBIN 13.6 GM/DL (13.0-17.0); LYMPH % 18.9 % (9.0-44.0); LYMPHOCYTE # 1.2 TH/MM3 (1.0-4.8); MEAN CELL VOLUME 76.5 FL (80.0-100.0); MEAN CORPUSCULAR HEMOGLOBIN 25.1 PG (27.0-34.0); MEAN CORPUSCULAR HGB CONC 32.8 % (32.0-36.0); MEAN PLATELET VOLUME 7.7 FL (7.0-11.0); MONO % 9.3 % (0.0-8.0); MONOCYTE # 0.6 TH/MM3 (0-0.9); NEUT % 68.9 % (16.0-70.0); PLATELET COUNT 163 TH/MM3 (150-450); RED BLOOD COUNT 5.43 MIL/MM3 (4.50-5.90); RED CELL DISTRIBUTION WIDTH 17.3 % (11.6-17.2); WHITE BLOOD COUNT 6.6 TH/MM3 (4.0-11.0)
[2017-07-03] MEDS ORDERED: GENT80I IM (18:50)
[2017-07-03] MEDS ORDERED: ATOR10TA15 PO (18:50)
[2017-07-03] MEDS ORDERED: ESCI5TAB PO (18:50)
[2017-07-03 18:54] LABS: BACTERIA, URINE MOD /hpf; BILIRUBIN, URINE NEG (NEG); BLOOD, URINE MOD (NEG); GLUCOSE,URINE NEG (NEG); KETONE, URINE NEG (NEG); MUCUS URINE MOD /lpf (OCC); NITRITE,URINE NEG (NEG); URINE COLOR YELLOW (YELLW/STRAW); URINE LEUKOCYTE ESTERASE LARGE (NEG); WHITE BLOOD CELL CLUMPS MANY
[2017-07-03] MEDS ORDERED: METO25TA3 PO (19:01)
[2017-07-03 19:11] LABS: INTERNATIONAL NORMALIZED RATIO 1.2 RATIO; PROTHROMBIN TIME - PATIENT 12.6 SEC (9.8-11.6)
--- NOTE | 2017-07-03 19:28 | RADRPT ---
EXAM DATE/TIME: 07/03/2017 19:15 [facility] COMPARISON: CT BRAIN W/O CONTRAST, February 20, 2017, 17:48. INDICATIONS : Altered mental status. RADIATION DOSE: 38.68 CTDIvol (mGy) MEDICAL HISTORY : Hypertension. Cardiovascular disease Carcinoma, prostate. SURGICAL HISTORY : Pacemaker. Appendectomy. ENCOUNTER: Initial ACUITY: 1 day PAIN SCALE: 0/10 LOCATION: cranial TECHNIQUE: Multiple contiguous axial images were obtained of the head. Using automated exposure control and adj ustment of the mA and/or kV according to patient size, radiation dose was kept as low as reasonably a chievable to obtain optimal diagnostic quality images. DICOM format image data is available electro nically for review and comparison. FINDINGS: CEREBRUM: The ventricles are normal for age. Cerebral atrophy. Minimal areas of low-density in the white matte r. No evidence of midline shift, mass lesion, hemorrhage or acute infarction. Small left-sided hygro ma measures 4 mm. POSTERIOR FOSSA: The cerebellum and brainstem are intact. The 4th ventricle is midline. The cerebellopontine angle i s unremarkable. EXTRACRANIAL: The visualized portion of the orbits is intact. SKULL: Prasad holes bilaterally. No evidence of skull fracture. CONCLUSION: 1. Tiny left-sided hygroma. 2. Cerebral atrophy. Diomedes Landers MD on July 03, 2017 at 19:23 Board Certified Radiologist. This report was verified electronically.
[2017-07-03 19:40] VITALS: BP 147/81; PULSE 88; RESP 18; O2SAT 97
[2017-07-03 20:41] LABS: ALBUMIN 2.3 GM/DL (3.4-5.0); CALCIUM 7.1 MG/DL (8.5-10.1); CALCIUM-PROTEIN CORRECTED 8.3 MG/DL (8.5-10.1); CREATININE 0.71 MG/DL (0.60-1.30); MAGNESIUM 1.7 MG/DL (1.5-2.5); TOTAL BILIRUBIN ADULT 1.1 MG/DL (0.2-1.0); TOTAL PROTEIN 4.9 GM/DL (6.4-8.2); TROPONIN I 0.02 NG/ML (0.02-0.05)
--- NOTE | 2017-07-03 21:13 | HHI.HP ---
HPI [facility] Primary Care Physician Unknown Admission Diagnosis altered mental status, UTI, failed outpatient treatment Diagnoses: (1) Encephalopathy Diagnosis: Principal (2) UTI (urinary tract infection) Diagnosis: Principal (3) Failure of outpatient treatment Diagnosis: Principal (4) Hypernatremia Diagnosis: Principal Travel History International Travel<30 Days: No Contact w/Intl Traveler <30 Da: No Traveled to Known Affected Are: No History of Present Illness This is an 81-year-old male with a PMH of A. fib, HTN, Prostate CA, h/o ICH, Seizure Disorder and Recurrent UTI who was brought to the ER by EMS for AMS. Pt has 24hr javascript application developer at home who noted pt to be more confused than baseline. Per medication review, pt currently on treatment for UTI w/ Gentamicin 80mg IM qd, however unclear if due to resistant strain as no records available, + indwelling Galaviz on arrival. Pt unable to provide much history due to AMS, but able to answer some questions. Denies pain, fever, chills, nausea, vomiting or diarrhea. On arrival, BP 140/80, HR 90, O2 sat 97% on RA, Afebrile. CBC unremarkable. Na 147. K+ 3.2. Calcium 7.1. INR 1.2. Keppra level pending. UA was significant UTI. CXR with no acute findings. CT Head with tiny left- sided hygroma. Review of Systems Except as stated in HPI: all other systems reviewed are Neg ROS: 14 point review of systems otherwise negative. Past Family Social History Past Medical History PMH: A. fib, HTN, Prostate CA, h/o ICH, Seizure Disorder and Recurrent UTI Past Surgical History PAST SURGICAL HISTORY: Pacemaker, Cardiac Stent, Carotid Endarterectomy Allergies: Coded Allergies: No Known Allergies (Unverified Allergy, Unknown, 07/03/17) Family History PAST FAMILY HISTORY: Reviewed. No h/o DM or CAD Social History PAST SOCIAL HISTORY: Negative for alcohol, tobacco or drugs. Physical Exam Vital Signs Vital Signs Date Time Temp Pulse Resp B/P (MAP) Pulse Ox O2 Delivery O2 Flow Rate FiO2 07/03/17 19:40 88 18 147/81 (103) 97 Room Air 07/03/17 18:33 97.4 07/03/17 18:17 91 18 140/80 (100) 97 Room Air 07/03/17 18:15 91 18 97 Room Air 07/03/17 18:15 91 18 140/80 (100) 97 Room Air 07/03/17 18:07 90 18 140/80 (100) 97 Physical Exam PE: GENERAL: Very pleasant soft-spoken elderly white male in no acute distress. Certified Diabetes Educator at bedside. HEENT: PERRLA, EOMI. No scleral icterus or conjunctival pallor. No lid lag or facial droop. CARDIOVASCULAR: Regular rate and rhythm. No obvious murmurs to auscultation. No chest tenderness to palpation. RESPIRATORY: No obvious rhonchi or wheezing. Clear to auscultation. Breath sounds equal bilaterally. GASTROINTESTINAL: Abdomen soft, non-tender, nondistended. BS normal. Galaviz in place MUSCULOSKELETAL: Extremities without clubbing, cyanosis, or edema. No obvious deformities. NEUROLOGICAL: Awake, alert, oriented to person, place, mild confusion. No focal neurologic deficits. Moving both upper and lower extremities spontaneously. Laboratory Laboratory Tests Test 07/03/17 18:25 07/03/17 19:55 White Blood Count 6.6 Red Blood Count 5.43 Hemoglobin 13.6 Hematocrit 41.5 Mean Corpuscular Volume 76.5 Mean Corpuscular Hemoglobin 25.1 Mean Corpuscular Hemoglobin Concent 32.8 Red Cell Distribution Width 17.3 Platelet Count 163 Mean Platelet Volume 7.7 Neutrophils (%) (Auto) 68.9 Lymphocytes (%) (Auto) 18.9 Monocytes (%) (Auto) 9.3 Eosinophils (%) (Auto) 2.5 Basophils (%) (Auto) 0.4 Neutrophils # (Auto) 4.5 Lymphocytes # (Auto) 1.2 Monocytes # (Auto) 0.6 Eosinophils # (Auto) 0.2 Basophils # (Auto) 0.0 CBC Comment DIFF FINAL Differential Comment Prothrombin Time 12.6 Prothromb Time International Ratio 1.2 Activated Partial Thromboplast Time 24.7 Urine Color YELLOW Urine Turbidity CLOUDY Urine pH 6.0 Urine Specific [place] 1.020 Urine Protein 100 Urine Glucose (UA) NEG Urine Ketones NEG Urine Occult Blood MOD Urine Nitrite NEG Urine Bilirubin NEG Urine Urobilinogen 2.0 Urine Leukocyte Esterase LARGE Urine RBC 154 Urine WBC Urine WBC Clumps MANY Urine Bacteria MOD Urine Mucus MOD Microscopic Urinalysis Comment CULTURE INDICATED Lactic Acid Level 1.5 Blood Urea Nitrogen 16 Creatinine 0.71 Random Glucose 67 Total Protein 4.9 Albumin 2.3 Calcium Level 7.1 Magnesium Level 1.7 Alkaline Phosphatase 54 Aspartate Amino Transf (AST/SGOT) 17 Alanine Aminotransferase (ALT/SGPT) 23 Total Bilirubin 1.1 Sodium Level 147 Potassium Level 3.2 Chloride Level 117 Carbon Dioxide Level 21.0 Anion Gap 9 Estimat Glomerular Filtration Rate 106 Protein Corrected Calcium 8.3 Total Creatine Kinase 89 Troponin I 0.02 Thyroid Stimulating Hormone 3rd Gen 2.080 Date/Time Source Procedure Growth Status 07/03/17 18:23 Blood Peripheral Aerobic Blood Culture Pending Received 07/03/17 18:23 Blood Peripheral Anaerobic Blood Culture Pending Received 07/03/17 18:25 Urine Clean Catch Urine Culture Pending Received Result Diagram: 07/03/17 1825 07/03/171954 Caprini VTE Risk Assessment Caprini VTE Risk Assessment: No/Low Risk (score <= 1) Caprini Risk Assessment Model Point Value = 1 Point Value = 2 Point Value = 3 Point Value = 5 Age 41-60 Minor surgery BMI > 25 kg/m2 Swollen legs Varicose veins or History of unexplained or recurrent spontaneous Oral contraceptives or hormone replacement Sepsis (< 1 month) Serious lung disease, including pneumonia (< 1 month) Abnormal pulmonary function Acute myocardial infarction Congestive heart failure (< 1 month) History of inflammatory bowel disease Medical patient at bed rest Age 61-74 Arthroscopic surgery Major open surgery (> 45 min) Laparoscopic surgery (> 45 min) Malignancy Confined to bed (> 72 hours) Immobilizing plaster cast Central venous access Age >= 75 History of VTE Family history of VTE Factor V Leiden Prothrombin [id number] Lupus anticoagulant Anticardiolipin antibodies Elevated serum homocysteine Heparin-induced thrombocytopenia Other congenital or acquired thrombophilia Stroke (< 1 month) Elective arthroplasty Hip, pelvis, or leg fracture Acute spinal cord injury (< 1 month) Prophylaxis Regimen Total Risk Factor Score Risk Level Prophylaxis Regimen 0-1 Low Early ambulation 2 Moderate Order ONE of the following: *Sequential Compression Device (SCD) *Heparin 5000 units SQ BID 3-4 Higher Order ONE of the following medications: *Heparin 5000 units SQ TID *Enoxaparin/Lovenox 40 mg SQ daily (WT < 150 kg, CrCl > 30 mL/min) *Enoxaparin/Lovenox 30 mg SQ daily (WT < 150 kg, CrCl > 10-29 mL/min) *Enoxaparin/Lovenox 30 mg SQ BID (WT < 150 kg, CrCl > 30 mL/min) AND/OR *Sequential Compression Device (SCD) 5 or more Highest Order ONE of the following medications: *Heparin 5000 units SQ TID (Preferred with Epidurals) *Enoxaparin/Lovenox 40 mg SQ daily (WT < 150 kg, CrCl > 30 mL/min) *Enoxaparin/Lovenox 30 mg SQ daily (WT < 150 kg, CrCl > 10-29 mL/min) *Enoxaparin/Lovenox 30 mg SQ BID (WT < 150 kg, CrCl > 30 mL/min) AND *Sequential Compression Device (SCD) Assessment and Plan Problem List: (1) Encephalopathy ICD Code: G93.40 - Encephalopathy, unspecified (2) UTI (urinary tract infection) ICD Code: N39.0 - Urinary tract infection, site not specified Status: Acute (3) Failure of outpatient treatment ICD Code: Z78.9 - Other specified health status Status: Acute (4) Hypernatremia ICD Code: E87.0 - Hyperosmolality and hypernatremia Assessment and Plan A/P: 1. Encephalopathy: acute change in mental status noted by 24hr javascript application developer, now slightly improved, likely secondary to UTI. CT Head w/ no acute findings, images reviewed by me. Neuro checks. IVF for hydration. 2. UTI: Recurrent UTI, +Aglaviz in place on arrival, follow up cultures, start IV Rocephin. IVF for hydration. 3. Failed Outpt Tx: per medication review, on Gentamicin 80mg IM qd for UTI, unclear if due to resistant strain or how long on treatment. Will follow up cultures. 4. Hypernatremia: IVF for hydration, repeat Na to check trend, Neuro checks as above. 5. DVT Prophylaxis: SCD/Teds. 6. Social work for d/c planning as needed. 7. Case discussed w/ ER physician at length, labs/records/imaging reviewed by me. Physician Certification 2 Midnight Certification Type: Admission for Inpatient Services Order for Inpatient Services The services are ordered in accordance with Medicare regulations or non- Medicare payer requirements, as applicable. In the case of services not specified as inpatient-only, they are appropriately provided as inpatient services in accordance with the 2-midnight benchmark. Estimated LOS (days): 2 days is the estimated time the patient will need to remain in the hospital, assuming treatment plan goals are met and no additional complications. Post-Hospital Plan: Not yet determined Problem Qualifiers (1) UTI (urinary tract infection): Qualified Codes: N30.00 - Acute cystitis without hematuria Mehreen Elliott MD Jul 03, 2017 21:13
[2017-07-03] MEDS ORDERED: MAGNESIUM HYDROXIDE SUSP 30 ML CUP PO PRN (21:15)
[2017-07-03] MEDS ORDERED: LACTULOSE SYRUP 20 GM/30 ML CUP PO PRN (21:15)
[2017-07-03] MEDS ORDERED: SENNOSIDES 8.6 MG TAB PO PRN (21:15)
[2017-07-03] MEDS ORDERED: SODIUM CHLORIDE 0.9% FLUSH 10 ML FLUSH IV FLUSH PRN (21:15)
[2017-07-03] MEDS ORDERED: ACETAMINOPHEN 325 MG TAB PO PRN (21:15)
[2017-07-03] MEDS ORDERED: ONDANSETRON HCL 4 MG/2 ML VIAL IVP PRN (21:15)
[2017-07-03] MEDS ORDERED: BISACODYL 10 MG SUPP RECTAL PRN (21:15)
[2017-07-03] MEDS: levETIRAcetam 500 MG/5 ML UDC PO SCH (22:10)
[2017-07-03] MEDS: SODIUM CHLOR 0.9% 1000 ML INJ 1,000 ML IV SCH (22:10)
[2017-07-03] MEDS: cefTRIAXone INJ 1,000 MG in SODIUM CHLORIDE 0.9% INJ 100 ML IV SCH (22:11)
[2017-07-03 23:00] VITALS: BP 109/77; PULSE 90; RESP 16; TEMP 97.5; O2SAT 94
--- NOTE | 2017-07-04 00:08 | EKG ---
Date Performed: 07/03/2017 Time Performed: 18:42:45 PTAGE: 81 years EKG: ATRIAL FIBRILLATION INCOMPLETE RIGHT BUNDLE BRANCH BLOCK MODERATE T-WAVE ABNORMALITY, CONSI YANICK ANTERIOR ISCHEMIA ABNORMAL ECG PREVIOUS TRACING : 03/31/2016 10.34 Since the previous tracing, no significant change noted DOCTOR: Andrew Batres Interpretating Date/Time 07/04/2017 00:07:37
[2017-07-04 05:48] LABS: AUTOMATED NEUTROPHIL # 6.6 TH/MM3 (1.8-7.7); BASOPHIL % 0.4 % (0.0-2.0); EOSINOPHIL # 0.1 TH/MM3 (0-0.4); EOSINOPHIL % 1.5 % (0.0-4.0); HEMATOCRIT 42.5 % (39.0-51.0); HEMOGLOBIN 13.5 GM/DL (13.0-17.0); LYMPH % 8.8 % (9.0-44.0); LYMPHOCYTE # 0.7 TH/MM3 (1.0-4.8); MEAN CELL VOLUME 76.7 FL (80.0-100.0); MEAN CORPUSCULAR HEMOGLOBIN 24.4 PG (27.0-34.0); MEAN CORPUSCULAR HGB CONC 31.8 % (32.0-36.0); MEAN PLATELET VOLUME 7.6 FL (7.0-11.0); MONO % 6.7 % (0.0-8.0); MONOCYTE # 0.5 TH/MM3 (0-0.9); NEUT % 82.6 % (16.0-70.0); PLATELET COUNT 198 TH/MM3 (150-450); RED BLOOD COUNT 5.54 MIL/MM3 (4.50-5.90)
[2017-07-04 06:22] LABS: ALBUMIN 3.1 GM/DL (3.4-5.0); ALKALINE PHOSPHATASE 75 U/L (45-117); ALT (GPT) 31 U/L (12-78); AST (GOT) 22 U/L (15-37); BICARBONATE 24.3 MEQ/L (21.0-32.0); BLOOD UREA NITROGEN 15 MG/DL (7-18); CALCIUM 9.3 MG/DL (8.5-10.1); CHLORIDE 110 MEQ/L (98-107); CREATININE 0.92 MG/DL (0.60-1.30); GLOMERULAR FILTRATION RATE 79 ML/MIN (>89); GLUCOSE,RANDOM 69 MG/DL (74-106); SODIUM (NA) 144 MEQ/L (136-145); TOTAL BILIRUBIN ADULT 1.4 MG/DL (0.2-1.0); TOTAL PROTEIN 6.8 GM/DL (6.4-8.2)
[2017-07-04] MEDS: SODIUM CHLOR 0.9% 1000 ML INJ 1,000 ML IV SCH ×2 (07:09→20:01)
[2017-07-04 08:00] VITALS: BP 119/84; PULSE 91; RESP 17; TEMP 97.8; O2SAT 94
[2017-07-04] MEDS: DOCUSATE SODIUM 50 MG/SENNA 8.6 MG TAB PO SCH ×2 (09:02→20:00)
[2017-07-04] MEDS: ESCITALOPRAM OXALATE 10 MG TAB PO SCH (09:02)
[2017-07-04] MEDS: METOPROLOL TARTRATE 25 MG TAB PO SCH (09:03)
[2017-07-04] MEDS: SODIUM CHLORIDE 0.9% FLUSH 10 ML FLUSH IV FLUSH SCH ×2 (09:03→21:00)
[2017-07-04] MEDS: levETIRAcetam 500 MG/5 ML UDC PO SCH ×2 (09:03→20:01)
--- NOTE | 2017-07-04 10:26 | HHI.PR ---
Subjective Remarks Follow-up metabolic encephalopathy/UTI July 04, 2017-patient seen and examined, alert and oriented to self. Pleasantly confused. Vital stable and currently afebrile Objective Vitals Vital Signs Date Time Temp Pulse Resp B/P (MAP) Pulse Ox O2 Delivery O2 Flow Rate FiO2 07/04/17 08:00 97.8 91 17 119/84 (96) 94 07/03/17 23:00 97.5 90 16 109/77 (88) 94 07/03/17 19:40 88 18 147/81 (103) 97 Room Air 07/03/17 18:33 97.4 07/03/17 18:17 91 18 140/80 (100) 97 Room Air 07/03/17 18:15 91 18 97 Room Air 07/03/17 18:15 91 18 140/80 (100) 97 Room Air 07/03/17 18:07 90 18 140/80 (100) 97 I/O 07/03/17 07/03/17 07/03/17 07/04/17 07/04/17 07/04/17 07:00 15:00 23:00 07:00 15:00 23:00 Intake Total 100 ml Output Total 550 ml Balance 100 ml -550 ml Intake IV Total 100 ml Output Urine Total 550 ml Result Diagram: 07/04/17 0455 07/04/17 0455 Imaging Last Impressions Chest X-Ray 07/03/17 1812 Signed Impressions: Service Date/Time: Monday, July 03, 2017 18:25 - CONCLUSION: No acute disease. Diomedes Landers MD Head CT 07/03/17 0000 Signed Impressions: Service Date/Time: Monday, July 03, 2017 19:15 - CONCLUSION: 1. Tiny left-sided hygroma. 2. Cerebral atrophy. Diomedes Landers MD Objective Remarks GENERAL: NAD SKIN: Warm and dry. HEAD: Normocephalic. EYES: No scleral icterus. No injection or drainage. NECK: Supple, trachea midline. No JVD or lymphadenopathy. CARDIOVASCULAR: Regular rate and rhythm without murmurs, gallops, or rubs. RESPIRATORY: Breath sounds equal bilaterally. No accessory muscle use. GASTROINTESTINAL: Abdomen soft, non-tender, nondistended. MUSCULOSKELETAL: No cyanosis, or edema. BACK: Nontender without obvious deformity. No CVA tenderness. A/P Problem List: (1) Metabolic encephalopathy ICD Code: G93.41 - Metabolic encephalopathy (2) UTI (urinary tract infection) ICD Code: N39.0 - Urinary tract infection, site not specified Status: Acute (3) Failure of outpatient treatment ICD Code: Z78.9 - Other specified health status Status: Acute (4) Hypernatremia ICD Code: E87.0 - Hyperosmolality and hypernatremia Assessment and Plan 81-year-old man with 1. Metabolic encephalopathy: likely secondary to UTI for which patient currently on IV antibiotic. CT Head w/ no acute findings. Neuro checks. IVF for hydration. 2. UTI Recurrent UTI, +Galaviz in Continue IV Rocephin pending culture report. Continue IVF for hydration. 3. Failed Outpt Tx: per medication review, on Gentamicin 80mg IM qd for UTI, unclear if due to resistant strain or how long on treatment. Will follow up cultures. Consider ID consult 4. Hypernatremia: Resolved with IVF for hydration 5. History of seizure disorder Continue with Keppra , and monitor level 6. DVT Prophylaxis: SCD/Teds. Problem Qualifiers (1) UTI (urinary tract infection): Qualified Codes: N30.00 - Acute cystitis without hematuria Diomedes Davis MD Jul 04, 2017 10:26
[2017-07-04 12:00] VITALS: BP 109/81; PULSE 130; RESP 17; TEMP 98; O2SAT 97
[2017-07-04 15:48] VITALS: PULSE 86
[2017-07-04 16:00] VITALS: BP 120/93; PULSE 102; RESP 17; TEMP 97.6; O2SAT 95
[2017-07-04 20:00] VITALS: BP 100/69; PULSE 97; RESP 16; TEMP 97.7; O2SAT 97
[2017-07-04] MEDS: ATORVASTATIN 10 MG TAB PO SCH (20:00)
[2017-07-04] MEDS: cefTRIAXone INJ 1,000 MG in SODIUM CHLORIDE 0.9% INJ 100 ML IV SCH (21:35)
[2017-07-05] VITALS: BP 135/76; PULSE 85; RESP 17; TEMP 97.3; O2SAT 97
[2017-07-05] MEDS: SODIUM CHLOR 0.9% 1000 ML INJ 1,000 ML IV SCH ×2 (05:00→17:00)
[2017-07-05 08:00] VITALS: BP 152/82; PULSE 99; RESP 18; TEMP 98.3; O2SAT 96
[2017-07-05] MEDS: DOCUSATE SODIUM 50 MG/SENNA 8.6 MG TAB PO SCH ×2 (09:00→21:48)
--- NOTE | 2017-07-05 10:31 | HHI.PR ---
Subjective Remarks Follow-up metabolic encephalopathy/UTI July 04, 2017-patient seen and examined, alert and oriented to self. Pleasantly confused. Vital stable and currently afebrile July 05, 2017-patient seen and examined, pleasantly confused. Currently not agitated and combative as yesterday per nurse report. Afebrile. Private nurse aide in the room. Objective Vitals Vital Signs Date Time Temp Pulse Resp B/P (MAP) Pulse Ox O2 Delivery O2 Flow Rate FiO2 07/05/17 08:00 98.3 99 18 152/82 (105) 96 07/05/17 00:00 97.3 85 17 135/76 (95) 97 07/04/17 20:00 97.7 97 16 100/69 (79) 97 07/04/17 16:00 97.6 102 17 120/93 (102) 95 07/04/17 15:48 86 07/04/17 12:00 98.0 130 17 109/81 (90) 97 I/O 07/04/17 07/04/17 07/04/17 07/05/17 07/05/17 07/05/17 07:00 15:00 23:00 07:00 15:00 23:00 Intake Total 1340 ml 380 ml Output Total 550 ml 450 ml 1000 ml Balance -550 ml 890 ml -620 ml Intake Oral 240 ml 380 ml IV Total 1100 ml Output Urine Total 550 ml 450 ml 1000 ml # Bowel Movements 1 1 Result Diagram: 07/04/17 0455 07/04/17 0455 Imaging Last Impressions Chest X-Ray 07/03/17 1812 Signed Impressions: Service Date/Time: Monday, July 03, 2017 18:25 - CONCLUSION: No acute disease. Diomedes Landers MD Head CT 07/03/17 0000 Signed Impressions: Service Date/Time: Monday, July 03, 2017 19:15 - CONCLUSION: 1. Tiny left-sided hygroma. 2. Cerebral atrophy. Diomedes Landers MD Objective Remarks GENERAL: NAD SKIN: Warm and dry. HEAD: Normocephalic. EYES: No scleral icterus. No injection or drainage. NECK: Supple, trachea midline. No JVD or lymphadenopathy. CARDIOVASCULAR: Regular rate and rhythm without murmurs, gallops, or rubs. RESPIRATORY: Breath sounds equal bilaterally. No accessory muscle use. GASTROINTESTINAL: Abdomen soft, non-tender, nondistended. MUSCULOSKELETAL: No cyanosis, or edema. BACK: Nontender without obvious deformity. No CVA tenderness. Procedures None A/P Problem List: (1) Metabolic encephalopathy ICD Code: G93.41 - Metabolic encephalopathy (2) UTI (urinary tract infection) ICD Code: N39.0 - Urinary tract infection, site not specified Status: Acute (3) Failure of outpatient treatment ICD Code: Z78.9 - Other specified health status Status: Acute (4) Hypernatremia ICD Code: E87.0 - Hyperosmolality and hypernatremia Assessment and Plan 81-year-old man with 1. Metabolic encephalopathy: likely secondary to UTI for which patient currently on IV antibiotic. CT Head w/ no acute findings. Neuro checks. IVF for hydration. 2. UTI Recurrent UTI, +Galaviz in Continue IV Rocephin pending culture report. Continue IVF for hydration. 3. Failed Outpt Tx: per medication review, on Gentamicin 80mg IM qd for UTI, unclear if due to resistant strain or how long on treatment. Consider ID consult 4. Hypernatremia: Resolved with IVF for hydration 5. History of seizure disorder Continue with Keppra , and monitor level 6. DVT Prophylaxis: SCD/Teds. Problem Qualifiers (1) UTI (urinary tract infection): Qualified Codes: N30.00 - Acute cystitis without hematuria Diomedes Davis MD Jul 05, 2017 10:31
[2017-07-05] MEDS: METOPROLOL TARTRATE 25 MG TAB PO SCH (11:56)
[2017-07-05] MEDS: ESCITALOPRAM OXALATE 10 MG TAB PO SCH (11:57)
[2017-07-05] MEDS: SODIUM CHLORIDE 0.9% FLUSH 10 ML FLUSH IV FLUSH SCH ×2 (11:58→21:49)
[2017-07-05] MEDS: levETIRAcetam 500 MG/5 ML UDC PO SCH ×2 (11:58→21:48)
[2017-07-05 12:00] VITALS: BP 124/69; PULSE 73; RESP 18; TEMP 98.2; O2SAT 97
[2017-07-05 16:00] VITALS: BP 119/83; PULSE 90; RESP 18; TEMP 98.4; O2SAT 97
[2017-07-05 20:00] VITALS: BP 128/76; PULSE 90; RESP 19; TEMP 97.3; O2SAT 96
[2017-07-05] MEDS: ATORVASTATIN 10 MG TAB PO SCH (21:48)
[2017-07-05] MEDS: cefTRIAXone INJ 1,000 MG in SODIUM CHLORIDE 0.9% INJ 100 ML IV SCH (21:49)
[2017-07-06] VITALS: BP 143/88; PULSE 77; RESP 17; TEMP 98.7; O2SAT 96
[2017-07-06] MEDS: SODIUM CHLOR 0.9% 1000 ML INJ 1,000 ML IV SCH ×2 (00:44→08:45)
[2017-07-06 08:00] VITALS: BP 118/80; PULSE 90; RESP 16; TEMP 97.7; O2SAT 94
[2017-07-06] MEDS: levETIRAcetam 500 MG/5 ML UDC PO SCH (08:44)
[2017-07-06] MEDS: DOCUSATE SODIUM 50 MG/SENNA 8.6 MG TAB PO SCH (08:44)
[2017-07-06] MEDS: SODIUM CHLORIDE 0.9% FLUSH 10 ML FLUSH IV FLUSH SCH (08:44)
[2017-07-06] MEDS: METOPROLOL TARTRATE 25 MG TAB PO SCH (08:45)
[2017-07-06] MEDS: ESCITALOPRAM OXALATE 10 MG TAB PO SCH (08:45)
[2017-07-06 12:00] VITALS: BP 136/84; PULSE 96; RESP 18; TEMP 97.3; O2SAT 97
--- NOTE | 2017-07-06 12:34 | HHI.FF ---
Face to Face Verification Diagnosis: (1) Altered mental status (2) Failure of outpatient treatment (3) UTI (urinary tract infection) (4) Metabolic encephalopathy Physical Therapy Order: Evaluate and Treat Home Health Nursing Order: Signs/symptoms of disease process I have seen patient Yo Blackwell on 07/06/17. My clinical findings support the need for the requested home health care services because: Deconditioned w/ increased weakness I certify that my clinical findings support that this patient is homebound because: Unsteady gait/balance Unsafe to leave home unassisted Unable to use public transportation Diomedes Davis MD July 06, 2017 12:34
[2017-07-06] MEDS ORDERED: CIPR-9 PO (14:02)
--- NOTE | 2017-07-06 14:06 | HHI.PR ---
Subjective Remarks Follow-up metabolic encephalopathy/UTI July 04, 2017-patient seen and examined, alert and oriented to self. Pleasantly confused. Vital stable and currently afebrile July 05, 2017-patient seen and examined, pleasantly confused. Currently not agitated and combative as yesterday per nurse report. Afebrile. Private nurse aide in the room. July 06, 2017-patient seen and examined,much more alert and oriented to self and place. Afebrile Objective Vitals Vital Signs Date Time Temp Pulse Resp B/P (MAP) Pulse Ox O2 Delivery O2 Flow Rate FiO2 07/06/17 12:00 97.3 96 18 136/84 (101) 97 07/06/17 08:00 97.7 90 16 118/80 (93) 94 07/06/17 00:00 98.7 77 17 143/88 (106) 96 07/05/17 20:00 97.3 90 19 128/76 (93) 96 07/05/17 16:00 98.4 90 18 119/83 (95) 97 I/O 07/05/17 07/05/17 07/05/17 07/06/17 07/06/17 07/06/17 07:00 15:00 23:00 07:00 15:00 23:00 Intake Total 380 ml 820 ml 1240 ml Output Total 1000 ml 1000 ml 1250 ml Balance -620 ml -180 ml -10 ml Intake Oral 380 ml 720 ml 240 ml IV Total 100 ml 1000 ml Output Urine Total 1000 ml 1000 ml 1250 ml # Bowel Movements 1 1 Result Diagram: 07/04/17 0455 07/04/17 0455 Imaging Last Impressions Chest X-Ray 07/03/17 1812 Signed Impressions: Service Date/Time: Monday, July 03, 2017 18:25 - CONCLUSION: No acute disease. Diomedes Landers MD Head CT 07/03/17 0000 Signed Impressions: Service Date/Time: Monday, July 03, 2017 19:15 - CONCLUSION: 1. Tiny left-sided hygroma. 2. Cerebral atrophy. Diomedes Landers MD Objective Remarks GENERAL: NAD SKIN: Warm and dry. HEAD: Normocephalic. EYES: No scleral icterus. No injection or drainage. NECK: Supple, trachea midline. No JVD or lymphadenopathy. CARDIOVASCULAR: Regular rate and rhythm without murmurs, gallops, or rubs. RESPIRATORY: Breath sounds equal bilaterally. No accessory muscle use. GASTROINTESTINAL: Abdomen soft, non-tender, nondistended. MUSCULOSKELETAL: No cyanosis, or edema. BACK: Nontender without obvious deformity. No CVA tenderness. Procedures None A/P Problem List: (1) Metabolic encephalopathy ICD Code: G93.41 - Metabolic encephalopathy (2) UTI (urinary tract infection) ICD Code: N39.0 - Urinary tract infection, site not specified Status: Acute (3) Failure of outpatient treatment ICD Code: Z78.9 - Other specified health status Status: Acute (4) Hypernatremia ICD Code: E87.0 - Hyperosmolality and hypernatremia Assessment and Plan 81-year-old man with 1. Metabolic encephalopathy: Resolved likely secondary to UTI for which patient currently on IV antibiotic. CT Head w/ no acute findings. Neuro checks. IVF for hydration. 2. UTI Recurrent UTI, +Galaviz in On IV Rocephin with urine culture negative Continue IVF for hydration. 3. Failed Outpt Tx: per medication review, on Gentamicin 80mg IM qd for UTI, unclear if due to resistant strain or how long on 4. Hypernatremia: Resolved with IVF for hydration 5. History of seizure disorder Continue with Keppra , and monitor level 6. DVT Prophylaxis: SCD/Teds. Problem Qualifiers (1) UTI (urinary tract infection): Qualified Codes: N30.00 - Acute cystitis without hematuria Diomedes Davis MD July 06, 2017 14:06
--- NOTE | 2017-07-06 14:08 | HHI.DS ---
Discharge Summary Admission Date Jul 03, 2017 at 21:12 Discharge Date: July 06, 2017 Admitting Diagnosis altered mental status, UTI, failed outpatient treatment (1) UTI (urinary tract infection) due to urinary indwelling catheter ICD Code: T83.511A - Infection and inflammatory reaction due to indwelling urethral catheter, initial encounter; N39.0 - Urinary tract infection, site not specified (2) Metabolic encephalopathy ICD Code: G93.41 - Metabolic encephalopathy (3) UTI (urinary tract infection) ICD Code: N39.0 - Urinary tract infection, site not specified Status: Acute (4) Failure of outpatient treatment ICD Code: Z78.9 - Other specified health status Status: Acute (5) Hypernatremia ICD Code: E87.0 - Hyperosmolality and hypernatremia Procedures None Brief History - From Admission This is an 81-year-old male with a PMH of A. fib, HTN, Prostate CA, h/o ICH, Seizure Disorder and Recurrent UTI who was brought to the ER by EMS for AMS. Pt has 24hr rn office at home who noted pt to be more confused than baseline. Per medication review, pt currently on treatment for UTI w/ Gentamicin 80mg IM qd, however unclear if due to resistant strain as no records available, + indwelling Galaviz on arrival. Pt unable to provide much history due to AMS, but able to answer some questions. Denies pain, fever, chills, nausea, vomiting or diarrhea. On arrival, BP 140/80, HR 90, O2 sat 97% on RA, Afebrile. CBC unremarkable. Na 147. K+ 3.2. Calcium 7.1. INR 1.2. Keppra level pending. UA was significant UTI. CXR with no acute findings. CT Head with tiny left- sided hygroma. CBC/BMP: 07/04/17 0455 07/04/17 0455 Significant Findings Laboratory Tests Test 07/03/17 18:25 07/03/17 19:55 07/03/17 23:31 07/04/17 04:55 Mean Corpuscular Volume 76.5 FL (80.0-100.0) 76.7 FL (80.0-100.0) Mean Corpuscular Hemoglobin 25.1 PG (27.0-34.0) 24.4 PG (27.0-34.0) Red Cell Distribution Width 17.3 % (11.6-17.2) Monocytes (%) (Auto) 9.3 % (0.0-8.0) Prothrombin Time 12.6 SEC (9.8-11.6) Urine Turbidity CLOUDY (CLEAR) Urine Protein 100 mg/dL (NEG-TRACE) Urine Occult Blood MOD (NEG) Urine Leukocyte Esterase LARGE (NEG) Urine RBC 154 /hpf (0-3) Urine WBC Clumps MANY (NONE) Urine Bacteria MOD /hpf (NONE) Urine Mucus MOD /lpf (OCC) Random Glucose 67 MG/DL (74-106) 69 MG/DL (74-106) Total Protein 4.9 GM/DL (6.4-8.2) Albumin 2.3 GM/DL (3.4-5.0) 3.1 GM/DL (3.4-5.0) Calcium Level 7.1 MG/DL (8.5-10.1) Total Bilirubin 1.1 MG/DL (0.2-1.0) 1.4 MG/DL (0.2-1.0) Sodium Level 147 MEQ/L (136-145) Potassium Level 3.2 MEQ/L (3.5-5.1) Chloride Level 117 MEQ/L (98-107) 110 MEQ/L (98-107) Protein Corrected Calcium 8.3 MG/DL (8.5-10.1) Mean Corpuscular Hemoglobin Concent 31.8 % (32.0-36.0) Neutrophils (%) (Auto) 82.6 % (16.0-70.0) Lymphocytes (%) (Auto) 8.8 % (9.0-44.0) Lymphocytes # (Auto) 0.7 TH/MM3 (1.0-4.8) Estimat Glomerular Filtration Rate 79 ML/MIN (>89) Test 07/05/17 16:10 Imaging Last Impressions Chest X-Ray 07/03/17 2752 Signed Impressions: Service Date/Time: Monday, July 03, 2017 18:25 - CONCLUSION: No acute disease. Diomedes Landers MD Head CT 07/03/17 0000 Signed Impressions: Service Date/Time: Monday, July 03, 2017 19:15 - CONCLUSION: 1. Tiny left-sided hygroma. 2. Cerebral atrophy. Diomedes Landers MD PE at Discharge GENERAL: NAD SKIN: Warm and dry. HEAD: Normocephalic. EYES: No scleral icterus. No injection or drainage. NECK: Supple, trachea midline. No JVD or lymphadenopathy. CARDIOVASCULAR: Regular rate and rhythm without murmurs, gallops, or rubs. RESPIRATORY: Breath sounds equal bilaterally. No accessory muscle use. GASTROINTESTINAL: Abdomen soft, non-tender, nondistended. MUSCULOSKELETAL: No cyanosis, or edema. BACK: Nontender without obvious deformity. No CVA tenderness. Hospital Course While in the hospital, patient was treated for: 1. Metabolic encephalopathy: Resolved prior to discharge likely secondary to UTI for which patient was treated with IV antibiotic. CT Head w/ no acute findings. Neuro checks were performed and IV fluid hydration was provided. 2. UTI due to indwelling Galaviz catheter Recurrent UTI, +Galaviz in Treated with IV Rocephin with urine culture negative ; will discharge on PO Cipro 500mg BID x 5 days 3. Failed Outpt Tx: per medication review, on Gentamicin 80mg IM qd for UTI, unclear if due to resistant strain or how long on 4. Hypernatremia: Resolved with IVF for hydration 5. History of seizure disorder Treated with Keppra 6. DVT Prophylaxis: SCD/Teds. Pt Condition on Discharge: Good Discharge Disposition: Discharge to SNF Discharge Time: > 30 minutes Discharge Instructions DIET: Follow Instructions for: Heart Healthy Diet Activities you can perform: Regular-No Restrictions Follow up Referrals: PCP Follow-up - 1 Week New Medications: Ciprofloxacin (Cipro) 500 Mg Tab 500 MG PO BID for Infection, #10 TAB 0 Refills Continued Medications: Atorvastatin (Atorvastatin) 10 Mg Tab 10 MG PO HS for Cholesterol Management, #30 TAB 0 Refills Escitalopram (Escitalopram) 5 Mg Tab 5 MG PO DAILY, #30 TAB 0 Refills Levetiracetam Liq (Keppra Liq) 500 Mg/5 Ml Soln 1000 MG PO Q12H for Seizure Control for 30 Days, #600 ML Metoprolol Tartrate (Metoprolol Tartrate) 25 Mg Tab 12.5 MG PO DAILY, #30 TAB 0 Refills Diomedes Davis MD July 06, 2017 14:08
== END 2017-07-06 17:51 | DRG 698 ==
LOC: NEPE 17:57 → NEDA 21:03 → OBSVTOIN 21:12 → N07B 21:45
PROVIDERS: ADMIT Hospitalist; ATTEND Hospitalist
DX: T83.511A Infection and inflammatory reaction due to indwelling urethral catheter, initial encounter (principal); G93.41 Metabolic encephalopathy; E87.0 Hyperosmolality and hypernatremia; N30.00 Acute cystitis without hematuria; G40.909 Epilepsy, unspecified, not intractable, without status epilepticus; I10 Essential (primary) hypertension; H91.90 Unspecified hearing loss, unspecified ear; E78.00 Pure hypercholesterolemia, unspecified; Y84.6 Urinary catheterization as the cause of abnormal reaction of the patient, or of later complication, without mention of misadventure at the time of the procedure; Z85.46 Personal history of malignant neoplasm of prostate; Z87.440 Personal history of urinary (tract) infections; Z95.5 Presence of coronary angioplasty implant and graft
CPT/HCPCS: 70450; 71045; 80053; 80177; 81001; 82550; 83605; 83735; 84295; 84443; 84484; 85025; 85610; 85730; 87040; 87086; 93005; J0696; J7030

== ENCOUNTER 2017-08-12 17:09 | Emergency (ER) | payer MEDICARE, BC ==
[~2017-08-12] VITALS: Ht 165.1 cm; Wt 59.0 kg
[~2017-08-12 17:09] MED LIST changes: -ALPH200C2 PO; +ATOR10TA15 PO; +CIPR-9 PO; -CLON.1 PO; +ESCI5TAB PO; +GENT80I IM; -HYDR12.56 PO; -LORA-474 PO; -LOSA50TA PO; -PERI PO; -ROSU5 PO
[2017-08-12 17:10] VITALS: BP 115/68; PULSE 79; RESP 16; TEMP 97.8; O2SAT 97
--- NOTE | 2017-08-12 18:17 | RADRPT ---
EXAM DATE: 08/12/2017 6:10 PM EDT AGE/SEX: 81 years / Male INDICATIONS: Trauma. Fell 2 days ago. Right lower rib pain. CLINICAL DATA: This is the patient's initial encounter. Patient reports that signs and symptoms have been present for 2 days and indicates a pain score of 4/10. MEDICAL/SURGICAL HISTORY: Cardiovascular disease. Carcinoma, prostatic. Hypertension. Pacemaker. Appendectomy. Carotid endarterectomy. RADIATION DOSE: 8.95 CTDI (mGy) ; Combined studies COMPARISON: No prior exams available for comparison. TECHNIQUE: Multiple contiguous axial images were obtained through the chest without contrast. Image s were obtained in suspended respiration using multiple row detector helical technique. Using automa elder exposure control and adjustment of the mA and/or kV according to patient size, radiation dose was kept as low as reasonably achievable to obtain optimal diagnostic quality images. FINDINGS: There is respiratory motion artifact. Lungs: No consolidation or pneumothorax. No concerning pulmonary nodule is identified. There is re spiratory motion artifact in the lower lobes with atelectasis in the right lower lobe. Mediastinum: The heart and great vessels demonstrate no acute abnormality. No lymphadenopathy is pre sent. There is coronary artery calcification and atherosclerotic disease of the aorta. Left chest wa ll cardiac pacing device is present with a single lead in the right heart. Pleurae: No pleural effusion or pleural thickening. Axillae: No lymphadenopathy. Musculoskeletal: The bones and soft tissues demonstrate no acute abnormality. There are degenerativ e changes of the thoracic spine. No fracture is identified. Miscellaneous: Please refer to abdomen and pelvis CT report for description of the subdiaphragmatic findings. CONCLUSION: 1. No acute finding is identified within the chest. No rib fracture is identified. Please note that examination quality is mildly degraded by respiratory motion artifact. 2. There is coronary artery calcification and moderate atherosclerotic disease of the aorta. Electronically signed by: Ahsan Starr MD 08/12/2017 6:15 PM EDT
--- NOTE | 2017-08-12 18:24 | RADRPT ---
EXAM DATE: 08/12/2017 6:11 PM EDT AGE/SEX: 81 years / Male INDICATIONS: Trauma. Fell 2 days ago. Right upper quadrant pain. CLINICAL DATA: This is the patient's initial encounter. Patient reports that signs and symptoms have been present for 1 day and indicates a pain score of 4/10. MEDICAL/SURGICAL HISTORY: Cardiovascular disease. Carcinoma, prostatic. Hypertension. Appende ctomy. Pacemaker. Carotid endarterectomy. RADIATION DOSE: 8.95 CTDI (mGy) ; Combined studies COMPARISON: No prior exams available for comparison. TECHNIQUE: Multiple contiguous axial images were obtained through the abdomen. Images were obtained using multiple row detector helical technique. Using dose reduction techniques, radiation dose was ke pt as low as reasonably achievable to obtain optimal diagnostic quality images. FINDINGS: Lower chest: Please refer to chest CT report for description of the supradiaphragmatic findings. Hepatobiliary: Liver density is within normal limits. No lesion is appreciated on this noncontrast ex amination. There are multiple calcified stones in a decompressed gallbladder. Kidneys: No hydronephrosis or stone. There are 2 low-density lesions at the lower pole the left kidne y measuring 5.4 cm and 1.4 cm. Posterior measurements within both these lesions is consistent with a simple cyst. There is focal contour bulge at the right upper pole kidney along the lateral cortex vivek suring 1.5 cm. Hounsfield measurements are 26. Adrenal Glands: Within normal limits. Spleen: Within normal limits. Pancreas: Within normal limits. Vascular: The aorta is nonaneurysmal. There is severe atherosclerotic disease. Displaced intimal calc ification in the right common iliac arteries suggests a short segment dissection. Bowel/Mesentery: The stomach and small bowel demonstrate no abnormality. No acute colon abnormality i s seen. There is no free intraperitoneal air or fluid. Abdominal Wall: No hernia is visualized. Retroperitoneum: No lymphadenopathy. There is mild presacral stranding. Bladder: Decompressed with Galaviz catheter in place. Therefore, not well evaluated. Reproductive: There are fiducial markers within the prostate gland related to prior radiation therapy . Inguinal: No lymphadenopathy or hernia. Musculoskeletal: No acute osseous abnormality is identified. There are degenerative changes of the sp ine. No fracture is seen. CONCLUSION: 1. No acute abnormality is identified. No fracture is seen. 2. Cholelithiasis. However, gallbladder is decompressed and no inflammatory changes are appreciated. 3. Prostatomegaly with pelvic changes which may be related to prior radiation therapy. Urinary bladd er is completely decompressed with a Galaviz catheter present. 4. 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 5. Questionable solid lesion versus complex cyst arising from the right upper pole kidney measuring 1.5 cm. Suggest attention to this at follow-up imaging or further characterization with ultrasound or renal protocol CT with and without intravenous contrast. Electronically signed by: Ahsan Starr MD 08/12/2017 6:23 PM EDT
[2017-08-12 18:25] LABS: AUTOMATED NEUTROPHIL # 3.2 TH/MM3 (1.8-7.7); BASOPHIL % 0.6 % (0.0-2.0); EOSINOPHIL # 0.1 TH/MM3 (0-0.4); HEMATOCRIT 38.3 % (39.0-51.0); HEMOGLOBIN 12.4 GM/DL (13.0-17.0); LYMPH % 17.7 % (9.0-44.0); LYMPHOCYTE # 0.8 TH/MM3 (1.0-4.8); MEAN CELL VOLUME 80.2 FL (80.0-100.0); MEAN CORPUSCULAR HGB CONC 32.4 % (32.0-36.0); MEAN PLATELET VOLUME 6.6 FL (7.0-11.0); MONO % 12.3 % (0.0-8.0); MONOCYTE # 0.6 TH/MM3 (0-0.9); NEUT % 67.4 % (16.0-70.0); PLATELET COUNT 238 TH/MM3 (150-450); RED BLOOD COUNT 4.78 MIL/MM3 (4.50-5.90); RED CELL DISTRIBUTION WIDTH 18.9 % (11.6-17.2); WHITE BLOOD COUNT 4.7 TH/MM3 (4.0-11.0)
[2017-08-12 18:32] LABS: CHLORIDE 107 MEQ/L (98-107); SODIUM (NA) 141 MEQ/L (136-145)
[2017-08-12 18:35] LABS: CALCIUM 9.1 MG/DL (8.5-10.1)
[2017-08-12 18:36] LABS: ALBUMIN 3.3 GM/DL (3.4-5.0); BLOOD UREA NITROGEN 21 MG/DL (7-18); GLUCOSE,RANDOM 109 MG/DL (74-106)
[2017-08-12 18:38] LABS: INTERNATIONAL NORMALIZED RATIO 1.2 RATIO; PROTHROMBIN TIME - PATIENT 11.9 SEC (9.8-11.6)
[2017-08-12 18:39] LABS: ALT (GPT) 43 U/L (12-78); AST (GOT) 28 U/L (15-37); GLOMERULAR FILTRATION RATE 71 ML/MIN (>89)
[2017-08-12 18:41] LABS: TOTAL PROTEIN 6.8 GM/DL (6.4-8.2)
[2017-08-12 18:42] LABS: ALKALINE PHOSPHATASE 85 U/L (45-117)
--- NOTE | 2017-08-12 18:57 | PD ---
HPI Chief Complaint: Fall Time Seen by Provider: 17:26 Travel History International Travel<30 days: No Contact w/Intl Traveler<30days: No Traveled to known affect area: No History of Present Illness HPI This is a 81-year-old male presents the ER for evaluation after a fall. Patient had a mechanical fall 2 days ago at home. Patient lives by himself but he has 24 hour/day at home, he states that it hurts on his right rib cage, denies any shortness of breath or chest pain, denies any abdominal pain, no head trauma, no loss of consciousness or vomiting, no motor or sensory deficits. Patient has no leg pain or swelling. PFSH Past Medical History Hx Anticoagulant Therapy: Yes (COUMADIN) Atrial Fibrillation: Yes Heart Rhythm Problems: Yes (Afib) Cancer: Yes (Prostate cancer. ) Cardiovascular Problems: Yes (htn on meds) High Cholesterol: Yes (well managed) Chemotherapy: No Chest Pain: No Congestive Heart Failure: No Cerebrovascular Accident: No Diminished Hearing: Yes Endocrine: No Genitourinary: No Hypertension: Yes Immune Disorder: No Implanted Vascular Access Dvce: Yes Musculoskeletal: No Neurologic: Yes (tingling in fingers occasionally. ) Psychiatric: No Reproductive: No Respiratory: No Migraines: No Radiation Therapy: Yes Seizures: No Tetanus Vaccination: < 5 Years Influenza Vaccination: Yes ?: Not Past Surgical History Abdominal Surgery: No AICD: No Appendectomy: Yes Arteriovenous Shunt: No Cardiac Surgery: Yes (stent, carotid, pacemaker) Ear Surgery: No Endocrine Surgery: No Eye Surgery: No Genitourinary Surgery: No Gynecologic Surgery: No Insulin Pump: No Joint Replacement: No Oral Surgery: No Pacemaker: Yes Thoracic Surgery: No Other Surgery: Yes (left carotid endarterectomy) Social History Alcohol Use: No Tobacco Use: No (QUIT 30 YEARS AGO) Substance Use: No Allergies-Medications (Allergen,Severity, Reaction): Coded Allergies: No Known Allergies (Unverified Allergy, Unknown, 08/12/17) Reported Meds & Prescriptions Reported Meds & Active Scripts Active Keppra Liq (Levetiracetam) 500 Mg/5 Ml Soln 1,000 Mg PO Q12H 30 Days Reported Metoprolol Tartrate 25 Mg Tab 12.5 Mg PO DAILY Atorvastatin (Atorvastatin Calcium) 10 Mg Tab 10 Mg PO HS Escitalopram (Escitalopram Oxalate) 5 Mg Tab 5 Mg PO DAILY Review of Systems Except as stated in HPI: all other systems reviewed are Neg Physical Exam Narrative GENERAL: Alert oriented 3 no acute distress SKIN: Focused skin assessment warm/dry. HEAD: Atraumatic. Normocephalic. EYES: Pupils equal and round. No scleral icterus. No injection or drainage. ENT: No nasal bleeding or discharge. Mucous membranes pink and moist. NECK: Trachea midline. No JVD. CARDIOVASCULAR: Regular rate and rhythm. No murmur appreciated. RESPIRATORY: No accessory muscle use. Clear to auscultation. Breath sounds equal bilaterally. GASTROINTESTINAL: Abdomen soft, non-tender, nondistended. Hepatic and splenic margins not palpable. MUSCULOSKELETAL: No obvious deformities. No clubbing. No cyanosis. No edema. NEUROLOGICAL: Awake and alert. No obvious cranial nerve deficits. Motor grossly within normal limits. Normal speech. PSYCHIATRIC: Appropriate mood and affect; insight and judgment normal. Data Data Last Documented VS Vital Signs Date Time Temp Pulse Resp B/P (MAP) Pulse Ox O2 Delivery O2 Flow Rate FiO2 08/12/17 19:34 74 16 158/70 (99) 98 08/12/17 17:[address] Abd/Pel W/O Iv Contrast (08/12/17 ) Ct Thorax/ Chest Wo Iv Contras (08/12/17 ) Complete Blood Count With Diff (08/12/17 17:36) Comprehensive Metabolic Panel (08/12/17 17:36) Act Partial Throm Time (Ptt) (08/12/17 17:36) Prothrombin Time / Inr (Pt) (08/12/17 17:36) Ed Discharge Order (08/12/17 19:17) Labs Laboratory Tests Test 08/12/17 18:15 White Blood Count 4.7 TH/MM3 Red Blood Count 4.78 MIL/MM3 Hemoglobin 12.4 GM/DL Hematocrit 38.3 % Mean Corpuscular Volume 80.2 FL Mean Corpuscular Hemoglobin 26.0 PG Mean Corpuscular Hemoglobin Concent 32.4 % Red Cell Distribution Width 18.9 % Platelet Count 238 TH/MM3 Mean Platelet Volume 6.6 FL Neutrophils (%) (Auto) 67.4 % Lymphocytes (%) (Auto) 17.7 % Monocytes (%) (Auto) 12.3 % Eosinophils (%) (Auto) 2.0 % Basophils (%) (Auto) 0.6 % Neutrophils # (Auto) 3.2 TH/MM3 Lymphocytes # (Auto) 0.8 TH/MM3 Monocytes # (Auto) 0.6 TH/MM3 Eosinophils # (Auto) 0.1 TH/MM3 Basophils # (Auto) 0.0 TH/MM3 CBC Comment DIFF FINAL Differential Comment Prothrombin Time 11.9 SEC Prothromb Time International Ratio 1.2 RATIO Activated Partial Thromboplast Time 24.9 SEC Blood Urea Nitrogen 21 MG/DL Creatinine 1.00 MG/DL Random Glucose 109 MG/DL Total Protein 6.8 GM/DL Albumin 3.3 GM/DL Calcium Level 9.1 MG/DL Alkaline Phosphatase 85 U/L Aspartate Amino Transf (AST/SGOT) 28 U/L Alanine Aminotransferase (ALT/SGPT) 43 U/L Total Bilirubin 1.0 MG/DL Sodium Level 141 MEQ/L Potassium Level 4.1 MEQ/L Chloride Level 107 MEQ/L Carbon Dioxide Level 28.0 MEQ/L Anion Gap 6 MEQ/L Estimat Glomerular Filtration Rate 71 ML/MIN MDM Medical Decision Making Medical Screen Exam Complete: Yes Emergency Medical Condition: Yes Differential Diagnosis Fracture, dislocation, pneumothorax. Narrative Course 81-year-old male presents the ER for evaluation after a mechanical fall. Patient has mild pain in the right rib cage, no open wounds or bruises. CAT scan chest shows no abnormalities although CAT scan of the abdomen shows a 1.5 cm cyst/solid mass in the right kidney. I reviewed the urinalysis from previous visits and he had consistent hematuria. Concern about possible renal cancer and the caregiver at the bedside and she said they will discuss with Narinder who is power of litigation attorney associate and decide if they want to due to the hematuria and mass in the right kidney I explained those results to the patient investigate this furthermore also give a copy of the CAT scan to the patient to take it to his primary care physician for referral to urologist to do a biopsy of this mass as soon as they can. There is also incidental finding of possible dissection of the common iliac artery and the right side complete physical examination shows no evidence of arterial occlusion, pulses are intact, sensation and motor function are intact and patient has no pain. CAT scan was done without contrast and there is some atherosclerosis changes in the descending aorta. I spoke with our vascular surgeon Dr. Tony and he recommended follow-up as an outpatient. Patient is stable to be discharged. Laboratory Tests Test 08/12/17 18:15 White Blood Count 4.7 TH/MM3 Red Blood Count 4.78 MIL/MM3 Hemoglobin 12.4 GM/DL Hematocrit 38.3 % Mean Corpuscular Volume 80.2 FL Mean Corpuscular Hemoglobin 26.0 PG Mean Corpuscular Hemoglobin Concent 32.4 % Red Cell Distribution Width 18.9 % Platelet Count 238 TH/MM3 Mean Platelet Volume 6.6 FL Neutrophils (%) (Auto) 67.4 % Lymphocytes (%) (Auto) 17.7 % Monocytes (%) (Auto) 12.3 % Eosinophils (%) (Auto) 2.0 % Basophils (%) (Auto) 0.6 % Neutrophils # (Auto) 3.2 TH/MM3 Lymphocytes # (Auto) 0.8 TH/MM3 Monocytes # (Auto) 0.6 TH/MM3 Eosinophils # (Auto) 0.1 TH/MM3 Basophils # (Auto) 0.0 TH/MM3 CBC Comment DIFF FINAL Differential Comment Prothrombin Time 11.9 SEC Prothromb Time International Ratio 1.2 RATIO Activated Partial Thromboplast Time 24.9 SEC Blood Urea Nitrogen 21 MG/DL Creatinine 1.00 MG/DL Random Glucose 109 MG/DL Total Protein 6.8 GM/DL Albumin 3.3 GM/DL Calcium Level 9.1 MG/DL Alkaline Phosphatase 85 U/L Aspartate Amino Transf (AST/SGOT) 28 U/L Alanine Aminotransferase (ALT/SGPT) 43 U/L Total Bilirubin 1.0 MG/DL Sodium Level 141 MEQ/L Potassium Level 4.1 MEQ/L Chloride Level 107 MEQ/L Carbon Dioxide Level 28.0 MEQ/L Anion Gap 6 MEQ/L Estimat Glomerular Filtration Rate 71 ML/MIN Last [address] 08/12/17 0000 Signed Impressions: CONCLUSION: 1. No acute finding is identified within the chest. No rib fracture is identif ied. Please note that examination quality is mildly degraded by respiratory mot ion artifact. 2. There is coronary artery calcification and moderate atherosclerotic disease of the aorta. Abdomen/Pelvis CT 08/12/17 0000 Signed Impressions: CONCLUSION: 1. No acute abnormality is identified. No fracture is seen. 2. Cholelithiasis. However, gallbladder is decompressed and no inflammatory ch anges are appreciated. 3. Prostatomegaly with pelvic changes which may be related to prior radiation therapy. Urinary bladder is completely decompressed with a Galaviz catheter prese nt. 4. 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 5. Questionable solid lesion versus complex cyst arising from the right upper pole kidney measuring 1.5 cm. Suggest attention to this at follow-up imaging or further characterization with ultrasound or renal protocol CT with and without intravenous contrast. 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 MD Scaglia, Bennett P. MD Additional Instructions: Follow-up with vascular surgery and nephrology, return to ER if symptoms change or do not improve. Disposition: 01 DISCHARGE HOME Condition: Stable Trever Tran MD Aug 12, 2017 18:57
[2017-08-12 19:34] VITALS: BP 158/70
== END 2017-08-12 19:36 | disposition home or self-care (01) ==
LOC: PHED 17:09
DX: Z04.3 Encounter for examination and observation following other accident (principal); R07.81 Pleurodynia; W19.XXXA Unspecified fall, initial encounter; N28.89 Other specified disorders of kidney and ureter; I77.72 Dissection of iliac artery; I48.91 Unspecified atrial fibrillation; I10 Essential (primary) hypertension; E78.00 Pure hypercholesterolemia, unspecified; Z87.891 Personal history of nicotine dependence
CPT/HCPCS: 71250; 74176; 80053; 85025; 85610; 85730